=== PATIENT | male | born 1965 | race Caucasian/White ===

== ENCOUNTER 2020-01-22 10:21 | Inpatient (IN) | payer OTHER, SELFPAY ==
[2020-01-22 10:58] LABS: #Eosinphils 0.1 thou/uL (0.0-0.7); #Monocytes 1.4 thou/uL (0.11-0.59); #Neutrophils 8.4 thou/uL (1.40-6.50); %Basophils 0.4 % (0.0-1.0); %Eosinophils 0.6 % (0.0-10.0); %Lymphocytes 9.4 % (21.0-51.0); %Monocytes 12.9 % (0.0-10.0); %Neutrophils 76.7 % (42.0-75.0); Hemoglobin 15.2 g/dL (14.0-18.0); Mean Corpuscular HGB CONC 32.9 g/dL (32.0-36.0); Mean Corpuscular Hemoglobin 32.4 pg (27.0-31.0); Mean Corpuscular Volume 98.3 fL (78.0-98.0); Mean Platelet Volume 6.9 fL (7.4-10.4); Platelet Count 178 thou/uL (130-400)
--- NOTE | 2020-01-22 11:03 | RAD ---
EXAM: CHEST ONE VIEW HISTORY: Patient states flushed feeling and right upper quadrant abdominal pain for 3 days. Patient also compl ains of chest pain. COMPARISON: None FINDINGS: Cardiac silhouette is magnified by projection but does appear at the upper limits of normal to border line enlarged. Mild elevation right hemidiaphragm is present. The lungs are clear. Surgical clips overlie the lateral aspect right upper quadrant. Degenerative changes are seen in the spine. IMPRESSION: No acute cardiopulmonary process.
[2020-01-22 11:20] LABS: ALT (SGPT) 93 U/L (8-55); AST (SGOT) 359 U/L (5-34); Albumin 2.7 g/dL (3.5-5.0); Alkaline Phosphatase 302 U/L (40-110); Anion Gap 9 mmol/L (10-20); BUN (Urea Nitrogen) 12 mg/dL (8.4-25.7); Bilirubin, Total 13.1 mg/dL (0.2-1.2); CK (CPK) 228 U/L (30-200); Calc. Creatinine Clearance 0 mL/min (70-130); Calcium 8.7 mg/dL (7.8-10.44); Carbon Dioxide 29 mmol/L (22-29); Chloride 101 mmol/L (98-107); Estimated GFR-MDRD Greater than 90; Globulin 4.8 g/dL (2.4-3.5); Glucose 102 mg/dL (70-105); Lipase 61 U/L (8-78); Potassium 3.4 mmol/L (3.5-5.1); Protein, Total 7.5 g/dL (6.0-8.3); Sodium 136 mmol/L (136-145)
[2020-01-22 11:42] LABS: CKMB 4.5 ng/mL (0-6.6)
[2020-01-22] MEDS ORDERED: Ondansetron PF 4 MG/2 ML Vial IVP PRN (12:00)
[2020-01-22] MEDS ORDERED: Ondansetron ODT 4 MG TAB SL PRN (12:00)
--- NOTE | 2020-01-22 12:19 | CT ---
CT PULMONARY ANGIOGRAM WITH IV CONTRAST AND 3D POSTPROCESSING: Date: 01/22/2020 HISTORY: 54-year-old male with complaints of feeling flushed and right upper quadrant abdominal pain and chest pain. COMPARISON: None. FINDINGS: No filling defects are seen in the pulmonary arterial vasculature to suggest pulmonary embolism. No t horacic aortic aneurysm or dissection is seen. No pleural or pericardial effusions are identified. No pneumothoraces, lobar consolidation, or lung masses are identified. There are dependent changes vers us mild infiltrates at the lung bases. Upper abdominal tomograms demonstrate intrahepatic biliary ductal dilatation, probable peripherally c alcified pancreatic body mass and upper abdominal lymphadenopathy. There are degenerative changes in the spine. There is old wedge compression of T6 vertebral body. IMPRESSION: 1. No CT evidence of pulmonary embolism. 2. Abdominal findings should be evaluated with a dedicated CT scan of the abdomen and pelvis using t pancreatic mass protocol. POS: SARAHI
[2020-01-22] MEDS ORDERED: Morphine 4 MG/ML VIAL ONE (12:46)
[2020-01-22] MEDS ORDERED: Aspirin Chewable 81 MG TAB ONE (12:46)
[2020-01-22] MEDS ORDERED: Nitroglycerin 2% Ointment 1 INCH/1 GM Packet ONE (12:46)
[2020-01-22] MEDS ORDERED: Iopamidol-370 76% 500 ML 1 ML ONE (12:58)
[2020-01-22 14:23] LABS: Acetaminophen Less than 6.0 mcg/mL (10.0-30.0)
[2020-01-22 14:38] LABS: INR-International Normal Ratio 1.4; PTT 31.3 SEC (22.9-36.1); Prothrombin Time 16.9 SEC (12.0-14.7)
[2020-01-22 14:41] LABS: HBSAB Concentration 0.59 mIU/mL; Hep B Surf AB Non-Reactive (NonReactive); Hep B Surf Ag Non-Reactive S/CO (NonReactive)
[2020-01-22 14:43] LABS: Hep C IgG Ab Reflex HepC Qnt (NonReactive); Hep C Index 16.33 S/CO (0-0.79)
--- NOTE | 2020-01-22 15:22 | ULT ---
EXAM: US Gallbladder RUQ CLINICAL HISTORY: Previous liver surgery. Poor historian. Elevated liver function tests.. COMPARISON: None. FINDINGS: Pancreas: Obscured by bowel gas Liver:Normal hepatic parenchymal echotexture is not appreciated. There is increased echogenicity of t he liver which may be due to hepatic steatosis or hepatocellular disease. Right hepatic lobe appears to be 8.9 cm. Correlation made with a CT angiogram of the chest does raise the possibility of intrahepatic biliary dilatation, incompletely evaluated. Based on that examination, normal-appearing portal vein is not definitively seen. On the previous CT, the visualized splenic vei n appears to have areas of calcification and tortuosity. Gallbladder: Surgically absent. Barboza's sign:Not applicable. Portal Vein: Cannot be adequately assessed on this exam. Reference to the portal vein is made on a CT angiogram of chest performed earlier today. Bile ducts: For evaluation the common bile duct. Possible intrahepatic biliary dilatation. Right kidney: No hydronephrosis. Right kidney measures 9.9 cm in length. IMPRESSION: 1. Abnormal appearance of the liver which may in part be due to surgery. The patient is a poor histor chayito but states that there was a previous liver surgery. 2. Gallbladder appears to be absent. Based on images provided on recent CT, there does appear to be i ntrahepatic biliary dilatation. Common bile duct is poorly defined and cannot be assessed. 3. Based on images provided, the expected portal vein appears to be tortuous and dilated. There is al so similar tortuosity and dilatation of the splenic vein. The possibility of portal vein thrombosis cannot be excluded. 4. The constellation of findings limit evaluation. Better interrogation with an abdomen MRI is recomm ended. If the patient cannot tolerate an abdomen MRI, consider a liver mass protocol CT. CODE T Transcribed Date/Time: 01/22/2020 5:13 PM
[2020-01-22] MEDS ORDERED: Potassium Chloride 20 MEQ TAB PO SCH (17:00)
[2020-01-22] MEDS: traMADol HCl 50 MG TAB PO PRN (17:05)
[2020-01-22] MEDS ORDERED: Calcium Carbonate 500 MG ChewTAB PO PRN (17:33)
--- NOTE | 2020-01-22 17:54 | HP ---
PRIMARY CARE: [id number]. CHIEF COMPLAINT: Nausea, vomiting with diarrhea and abdominal discomfort of 3 days' duration. HISTORY OF PRESENT ILLNESS: The patient is a 54-year-old male with cirrhosis, presented to the emergency room with above complaints. Over the last 3 to 4 days, the patient has intractable nausea, vomiting, and diarrhea. He is unable to keep any food down. He states that he had several episodes of vomiting, which was nonbilious. He denies any hematemesis. The diarrhea was watery without any blood. He also had abdominal discomfort, mainly in the right upper quadrant, which was constant. He denies any aggravating or relieving factor. He also felt feverish and had intermittent chills. Earlier today, he also had some precordial chest discomfort that was 9/10, that was constant, short lasting, which has resolved at this time. He denies any radiation of the chest pain. No associated diaphoresis reported. In the emergency room, his initial vital signs showed temperature 98.2, respirations of 18, pulse rate of 64 with a blood pressure of 167/89, and O2 saturation 95% on room air. His EKG showed sinus rhythm with left ventricular hypertrophy. He received morphine along with aspirin and Nitro-Patch in the emergency room. PAST MEDICAL HISTORY: 1. Cirrhosis. 2. COPD. PAST SURGICAL HISTORY: 1. Cholecystectomy. 2. Liver biopsy. PAST PSYCHIATRIC HISTORY: Anxiety and PTSD. SOCIAL HISTORY: The patient currently lives at home. Ambulates with the help of cane. Denies current use of smoking, alcohol, or drug use. FAMILY HISTORY: Negative for heart disease. REVIEW OF SYSTEMS: All other review of systems was reviewed and was found negative. PHYSICAL EXAMINATION: VITAL SIGNS: As discussed above. GENERAL: A 54-year-old male, in no apparent distress, resting comfortably. HEENT: Head, atraumatic and normocephalic. Sclerae icteric. Moist mucous membranes. No oral lesion. NECK: Supple. No JVD appreciated. No carotid bruit. LUNGS: Clear to auscultation bilaterally. No wheezing, rales, or rhonchi. HEART: S1 and S2 present. Regular rate and rhythm. No murmurs, rubs, or gallops. ABDOMEN: Soft. Mild tenderness in the right upper quadrant. No rebound or guarding. No costovertebral angle tenderness. EXTREMITIES: Trace edema in bilateral lower extremity. No calf tenderness. SKIN: Warm and dry. LYMPH NODES: No palpable lymph nodes in the neck. Peripheral, vascular, radial pulses palpable bilaterally. MUSCULOSKELETAL: No joint swelling or tenderness. LABORATORY FINDINGS: CBC showed WBC 11.0 with hemoglobin 15.2, hematocrit 46.2, platelets 178. PT of 16.9, INR 1.4. D-dimer was 1.21. Chemistry showed sodium 136, potassium 3.4, chloride 101, bicarb 29, BUN 12, creatinine 0.70. Total bilirubin 13.1 with AST 359, ALT 93, alkaline phosphorus 302. Troponin of 0.051, repeat troponin was 0.026. Ammonia was 35. Magnesium 1.9. Acetaminophen level was less than 6. Hepatitis B surface antigen and antibody were nonreactive. Hepatitis C antibody was positive. CT angiogram of the chest by my review was negative for pulmonary embolism. He also had intrahepatic biliary ductal dilatation with calcified pancreatic body mass and upper abdominal lymphadenopathy. EKG by my review as discussed above. IMPRESSION: 1. Nausea, vomiting, diarrhea with abdominal discomfort. The patient has significantly abnormal LFTs. He was admitted at [facility] 3 months ago. 2. Chest discomfort, rule out acute coronary syndrome. 3. Hypokalemia. 4. Elevated troponins, suspected type 2 myocardial infarction. 5. Intermittent fever per the patient's report, rule out sepsis. 6. Suspected chronic hepatitis C. 7. Abnormal abdominal finding on the CT. PLAN: The patient will be monitored on the telemetry unit due to chest discomfort. Serial troponins will be obtained. We will keep him on clear liquid diet due to abdominal discomfort with nausea. Gastroenterology Team will be consulted. Gentle IV hydration. Hepatitis C RNA PCR has been sent. We will obtain records from [place] location. The patient understands the above plan of care. Job ID: [id number] [facility]
[2020-01-22] MEDS: cefTRIAXone\\ROCEPHIN 2 GM in Sodium Chloride 0.9% 100 ML IVPB SCH (18:30)
[2020-01-22 19:34] LABS: Medtox Reader # READER 4; Opiate Screen Detected (NotDetected)
[2020-01-22 19:35] LABS: Amphetamine Not Detected (NotDetected); Barbiturates Screen Not Detected (NotDetected); Benzodiazepine Screen Not Detected (NotDetected); Cocaine Metabolite Screen Not Detected (NotDetected); Medtox Control Line Valid? VALID (VALID); Methadone Not Detected (NotDetected); Methamphetamine Not Detected (NotDetected); Oxycodone Screen Not Detected (NotDetected); Phencyclidine (PCP) Not Detected (NotDetected); THC/Cannabinoid Screen Not Detected (NotDetected); Tricyclic Screen Not Detected (NotDetected)
[2020-01-22] MEDS: D5 0.9% NS w/ 20 mEq KCl 1,000 ML IV SCH (21:13)
[2020-01-22] MEDS: Famotidine/PF 20 mg/2ml Vial SLOW IVP SCH (21:13)
[2020-01-22] MEDS ORDERED: Morphine 2 MG/ML SYRINGE SLOW IVP SCH (23:59)
[2020-01-23] MEDS: traMADol HCl 50 MG TAB PO PRN (04:55)
[2020-01-23 04:59] LABS: Band 4 % (5-11); Eosinophils 1 % (0-10); Hemoglobin 15.2 g/dL (14.0-18.0); Lymphocytes 12 % (21-51); MDiff Complete? YES; Mean Corpuscular HGB CONC 34.2 g/dL (32.0-36.0); Mean Corpuscular Hemoglobin 34.5 pg (27.0-31.0); Mean Platelet Volume 7.2 fL (7.4-10.4); Monocytes 13 % (0-10); Neutrophil 70 % (42-75); Platelet Count 106 thou/uL (130-400); Platelet Morphology Comment Appears Decreased; RBC Distribution Width 14.1 % (11.5-14.5); Red Blood Cell (RBC) Count 4.41 mill/uL (4.70-6.10); White Blood Cell (WBC) Count 12.2 thou/uL (4.8-10.8)
[2020-01-23 05:23] LABS: ALT (SGPT) 98 U/L (8-55); AST (SGOT) 404 U/L (5-34); Albumin 1.9 g/dL (3.5-5.0); Alkaline Phosphatase 279 U/L (40-110); BUN (Urea Nitrogen) 7 mg/dL (8.4-25.7); Bilirubin, Direct 9.4 mg/dL (0.1-0.3); Bilirubin, Total 16.1 mg/dL (0.2-1.2); Calc. Creatinine Clearance 206 mL/min (70-130); Carbon Dioxide 17 mmol/L (22-29); Chloride 104 mmol/L (98-107); Estimated GFR-MDRD Greater than 90; Glucose 114 mg/dL (70-105); Potassium 4.8 mmol/L (3.5-5.1); Protein, Total 6.9 g/dL (6.0-8.3); Sodium 129 mmol/L (136-145)
[2020-01-23 05:24] LABS: Anion Gap 13 mmol/L (10-20)
[2020-01-23] MEDS ORDERED: Furosemide 20 MG TAB PO SCH (09:00)
[2020-01-23] MEDS ORDERED: Lisinopril 5 MG TAB PO SCH (09:00)
[2020-01-23] MEDS: D5 0.9% NS w/ 20 mEq KCl 1,000 ML IV SCH ×2 (10:14→21:32)
[2020-01-23] MEDS: Famotidine/PF 20 mg/2ml Vial SLOW IVP SCH ×2 (10:15→21:33)
[2020-01-23] MEDS ORDERED: Morphine 2 MG/ML SYRINGE SLOW IVP PRN (10:40)
[2020-01-23] MEDS ORDERED: Iopamidol 370 76% 100 ML VIAL ONE (12:49)
[2020-01-23] MEDS ORDERED: Morphine 2 MG/ML SYRINGE SLOW IVP SCH (14:30)
--- NOTE | 2020-01-23 14:57 | EKG ---
Test Reason : Blood Pressure : / mmHG Vent. Rate : 062 BPM Atrial Rate : 062 BPM P-R Int : 136 ms QRS Dur : 102 ms QT Int : 450 ms P-R-T Axes : 022 014 014 degrees QTc Int : 456 ms Normal sinus rhythm Minimal voltage criteria for LVH, may be normal variant Borderline ECG Confirmed by KONG DRAKE, JEREMI ([id number]), editor sound YVONNE ABDALLA ([id number]) on 01/23/2020 2:56:54 PM Referred By: Confirmed By:JEREMI TRIANA MD
--- NOTE | 2020-01-23 15:13 | CON ---
DATE OF CONSULTATION: 01/23/2020 REQUESTING PHYSICIAN: Dr. Kirby. REASON FOR CONSULTATION: Elevated LFTs and abdominal pain. HISTORY OF PRESENT ILLNESS: Seth De Santiago is a 54-year-old man, previously seen by my GI colleague, Dr. Pete. He has a history of known cirrhosis secondary to prior alcohol abuse as well as chronic hepatitis C, which is treatment naive. He reports having had an ERCP performed for gallstones back in 2005, finally underwent cholecystectomy in 2011. He has been known to have cirrhosis since at least 2010 with imaging at that time demonstrating nodular liver, also history of ascites and hepatic encephalopathy. He does not follow up with any GI or liver physician for the past several years. He does take lactulose and Lasix on an outpatient basis. He does not use drugs or alcohol or smoke at all at this point. He reports he had been doing quite well until about 4 days ago. At that time, he started having significant pain in the epigastrium and right upper quadrant along with nausea and repeated episodes of nonbloody emesis. This pain progressed and started to involve the chest yesterday, which prompted his presentation. Upon admission, he was found to have significant elevation in LFTs with total bilirubin up to 16.1 today, direct bilirubin 9.4, AST 404, ALT 98, alkaline phosphatase 279. He has a mild leukocytosis with WBC 12.2. Initial chest x-ray imaging showed no acute processes. A CT angiogram of the chest demonstrated no evidence of pulmonary embolus, but there was suggestion of intrahepatic biliary dilation as well as a probable pancreatic body mass with peripheral calcification and abdominal lymphadenopathy. Cross-sectional imaging of the abdomen was recommended. He had an abdominal ultrasound as well, but this was limited quality study showing only absent gallbladder and no good visualization of the portal vein or the common bile duct. Currently, he says the abdominal pain remains his primary complaint, it remains [id number] after morphine. He is afebrile and hemodynamically stable. REVIEW OF SYSTEMS: Full review of systems including constitutional; head, eyes, ears, nose, and throat; GI; ; cardiovascular; respiratory; musculoskeletal; neurologic systems is negative except as noted in the HPI. PAST MEDICAL HISTORY: 1. 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 2. Hepatitis C, treatment naive. 3. COPD. 4. Anxiety. 5. PTSD. 6. Cholecystectomy in 2011. 7. ERCP in 2005. SOCIAL HISTORY: No smoking, alcohol, or drug use currently. FAMILY HISTORY: Noncontributory. ALLERGIES: ACETAMINOPHEN. OUTPATIENT MEDICATIONS: 1. Lactulose 20 g b.i.d. 2. Lisinopril 5 mg daily. 3. Lasix 20 mg daily. 4. Milk thistle. PHYSICAL EXAMINATION: VITAL SIGNS: Temperature 97.5, pulse 71, blood pressure 163/73, and 97% oxygen saturation on room air. GENERAL: A 54-year-old man lying in bed, in mild distress from abdominal discomfort. MENTAL: He is alert and fully oriented. Pleasant, conversational. SKIN: He is jaundice. No rashes were palpable. EYES: He has scleral icterus. Extraocular movements are intact. ENT: Mucous membranes are moist. No oral lesions. LYMPH: No submandibular or supraclavicular lymphadenopathy. THYROID: Nontender to palpation. HEART: Regular rate and rhythm. LUNGS: Clear to auscultation bilaterally. ABDOMEN: Bowel sounds are present. The abdomen is nondistended. He is tender to palpation, even light palpation of the epigastrium in right upper quadrant, but no guarding or rebound tenderness. EXTREMITIES: No peripheral edema. VESSELS: Radial pulses 2+ bilaterally. NEURO: Cranial nerves 2 through 12 intact bilaterally. No focal deficits. LABORATORY DATA: Total bilirubin 16.1, direct bilirubin 9.4, alkaline phosphatase 279, AST 404, ALT 98, albumin 1.9. WBC 12.2, hemoglobin 15.2, platelets 106. INR 1.4. Sodium 129, potassium 4.8, BUN 7, creatinine 0.53. Ammonia only 35. Urine drug screen positive for opiates, otherwise negative. Blood culture shows no growth to date. Acetaminophen level is negative. BNP is 270. Troponin 0.02. Lipase normal at 61. Hepatitis B surface antigen negative. Hepatitis B surface antibody negative. Hepatitis C antibody is positive. IMAGING STUDIES: As detailed in the HPI. Notably, CTA of the chest demonstrates no evidence of PE, but suggest intrahepatic biliary dilation and a probable pancreatic body mass with peripheral calcification as well as abdominal lymphadenopathy, with further abdominal imaging recommended. ASSESSMENT AND PLAN: 1. Jaundice, with significant LFT elevation. Note, total bilirubin is up to 16.1, was only 2.9 during prior admission at the outside hospital 6 months ago. This is likely a combination of decompensated cirrhosis plus a biliary obstruction, but I do have more concern for new biliary obstructive process at this point, particularly given the CT findings suggesting intrahepatic biliary dilation as well as possible pancreatic body mass. 2. Biliary dilation. 3. Possible pancreatic mass. We are going to need dedicated cross-sectional imaging of the abdomen and pelvis. I am not sure he would tolerate MRI due to his current pain level. We will request CT imaging with liver and pancreatic protocol. If the patient does indeed have a pancreatic mass causing biliary obstruction, I think he would probably be best served at a tertiary center for endoscopic ultrasound along with ERCP. 4. Cirrhosis, secondary to hepatitis C and prior alcohol abuse. The patient has not followed up with any small products ii assembler. To his knowledge, he has not really had any ongoing liver surveillance. 5. History of hepatic encephalopathy. He had an admission with encephalopathy elsewhere in July 2019, but evidently has done well with this recently on lactulose. 6. We will follow up results of CT, and go from there. Thank you for the consultation. Please call anytime with questions or concerns. Job ID: [id number]
--- NOTE | 2020-01-23 17:03 | CT ---
Exam: Abdomen CT with and without contrast Pelvic CT with contrast HISTORY: Possible portal vein thrombosis. Biliary dilatation. Abnormal LFTs. Evaluate for liver mass versus pancreatic mass. COMPARISON: None Correlation: CT angiogram of the chest 01/22/2020, gallbladder ultrasound 01/22/2020 FINDINGS: Abdomen CT: Chronic changes in the lung bases. Heart is enlarged. No significant pericardial fluid The visualized aorta has a normal caliber. No periaortic fat stranding. Normal-appearing portal vein is not appreciated. There appears to be surgical change with resection o f the portal vein. The superior mesenteric vein appears to directly anastomose with the splenic vein which appears to be dilated. Gallbladder is surgically absent. There is marked dilatation of the intrahepatic biliary system as we ll as the common bile duct. There is abnormal attenuation within the lumen of the distal common bile duct, measuring 1.4 x 1.2 cm. Abnormal attenuation occupies the majority of the lumen of the com mon bile duct. Proximal to this abnormal attenuation, there is significant dilatation of the common bile duct extending into the intrahepatic biliary system. An obstructing mass lesion is suspected. Th ere are no enhancing masses within the liver. No enhancement or abnormal masses with regards to the pancreas. Note, the pancreatic duct is upper normal in caliber, measuring 0.25 cm. An underlying panc reatic mass cannot be entirely excluded but is less favored at this time. There are enlarged gastrohepatic varices. Enlarged lymph nodes in the portal confluence. 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 Additional enlarged lymph node is noted posterior to the dilated common bile duct (axial image #57, series 3 and coronal image 73, series 601). Enlarged lymph node posterior to the head of the smith creas measuring 8.3 x 1.1 cm. Symmetric enhancement of the kidneys. Bilaterally no obstructive uropathy. Subcentimeter hypodensity in the left and right renal cortex, compatible with cortical cysts. Umbilical hernia containing mesenteric fat No mesenteric mass, lymphadenopathy, free air or significant free fluid Limited evaluation of the alimentary canal by incomplete oral contrast opacification. No evidence of a bowel obstruction. Normal caliber appendix. Fecal material in a nondistended, nondilated colon. 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: Mildly prominent urinary bladder mucosa, nonspecific. No pelvic mass, lymphadenopathy or f ree air. There is free fluid in the pelvis was attenuation coefficient of 17 Hounsfield units. There are no lytic or blastic lesions in the osseous structures. IMPRESSION: 1. Surgically absent gallbladder. 2. Marked dilatation of the intra and extra hepatic biliary system, greater than expected for reservo ir effect due to cholecystectomy. There appears to be an abnormal soft tissue density in the distal common bile duct, incompletely evaluated. ERCP may be beneficial. Consider GI consultation. 3. Upper normal caliber of the pancreatic duct without evidence of associated uncinate process or smith creatic head mass. 4. Enlarged lymph nodes adjacent to the common bile duct and in the portal confluence. 5. Postsurgical changes with resultant prominent splenic varices. Transcribed Date/Time: 01/23/2020 5:13 PM
[2020-01-23] MEDS: cefTRIAXone\\ROCEPHIN 2 GM in Sodium Chloride 0.9% 100 ML IVPB SCH (17:19)
[2020-01-23] MEDS: Morphine 2 MG/ML SYRINGE SLOW IVP PRN ×2 (19:15→23:20)
[2020-01-24] MEDS: Morphine 2 MG/ML SYRINGE SLOW IVP PRN ×3 (04:39→12:24)
[2020-01-24] MEDS: D5 0.9% NS w/ 20 mEq KCl 1,000 ML IV SCH ×2 (04:40→08:37)
[2020-01-24 04:44] LABS: ALT (SGPT) 88 U/L (8-55); AST (SGOT) 267 U/L (5-34); Albumin 2.1 g/dL (3.5-5.0); Alkaline Phosphatase 253 U/L (40-110); Anion Gap 10 mmol/L (10-20); BUN (Urea Nitrogen) 6 mg/dL (8.4-25.7); Bilirubin, Total 20.9 mg/dL (0.2-1.2); Calc. Creatinine Clearance 206 mL/min (70-130); Calcium 8.1 mg/dL (7.8-10.44); Carbon Dioxide 22 mmol/L (22-29); Chloride 105 mmol/L (98-107); Estimated GFR-MDRD Greater than 90; Glucose 72 mg/dL (70-105); Potassium 4.1 mmol/L (3.5-5.1); Protein, Total 6.7 g/dL (6.0-8.3); Sodium 133 mmol/L (136-145)
[2020-01-24 05:06] LABS: Band 7 % (5-11); Eosinophils 1 % (0-10); Lymphocytes 5 % (21-51); MDiff Complete? YES; Mean Corpuscular Hemoglobin 33.6 pg (27.0-31.0); Mean Platelet Volume 7.3 fL (7.4-10.4); Monocytes 13 % (0-10); Neutrophil 73 % (42-75); Platelet Count 122 thou/uL (130-400); RBC Distribution Width 14.1 % (11.5-14.5); Red Blood Cell (RBC) Count 4.48 mill/uL (4.70-6.10); White Blood Cell (WBC) Count 9.5 thou/uL (4.8-10.8)
[2020-01-24 05:50] LABS: Bilirubin, Direct 13.8 mg/dL (0.1-0.3)
--- NOTE | 2020-01-24 07:16 | PDOC.HOSPP ---
- Subjective Encounter Date: 01/23/20 Encounter Time: 09:30 Subjective: Patient seen and examined for Abn LFTs. No new CP. RUQ pain worse. Still nauseas. No diarrhea. No other complaints. No overnight events - Objective Vital Signs & Weight: Vital Signs (12 hours) Temp Pulse Resp BP BP Pulse Ox 01/24/20 05:07 98 01/24/20 03:33 98 F 82 18 143/65 H 98 01/23/20 19:49 98.0 F 80 14 151/72 H 94 L Weight Admit Weight 204 lb 3 oz Weight 7.446 oz I&O: 01/23/20 01/24/20 01/25/20 06:59 06:59 06:59 Intake Total 687 2286 Output Total 350 1350 Balance 337 936 Result Diagrams: 01/24/20 03:58 01/24/20 03:58 Additional Labs: Laboratory Tests 01/23/20 04:35 Total Bilirubin 16.1 H Direct Bilirubin 9.4 H AST 404 H ALT 98 H Alkaline Phosphatase 279 H EKG Reviewed by me: Yes (Tele SR) Hospitalist ROS - Review of Systems Respiratory: denies: cough, dry, shortness of breath, hemoptysis, SOB with excertion, pleuritic pain, sputum, wheezing, other Cardiovascular: denies: chest pain, palpitations, orthopnea, paroxysmal noc. dyspnea, edema, light headedness, other - Medication Medications: Active Medications Generic Name Dose Route Start Last Admin Trade Name Freq PRN Reason Stop Dose Admin Famotidine 20 mg 01/22/20 21:00 01/23/20 21:33 Pepcid SLOW IVP 20 mg Q12HR WILL Administration Potassium Chloride/Dextrose/Sod Cl 1,000 mls @ 75 mls/hr 01/22/20 18:00 01/23 04:40 D5 0.9% Ns W/ 20 Meq Kcl IV 1,000 mls .[id number] WILL Administration Morphine Sulfate 2 mg 01/23/20 14:25 01/24/20 04:39 Morphine SLOW IVP 01/25/20 07:00 2 mg Q4H PRN Administration Severe Pain (7-10) Tramadol HCl 50 mg 01/22/20 16:31 01/23/20 04:55 Ultram PO 50 mg Q12H PRN Administration Moderate to Severe Pain (6-10) - Exam General Appearance: NAD Heart: RRR, no gallops, no rubs, normal peripheral pulses Respiratory: CTAB, no wheezes, no rales, no ronchi Gastrointestinal: normal bowel sounds, no guarding, no rigidity Gastrointestinal - other findings: RUQ tend - no guarding Extremities: no cyanosis, no clubbing Skin: normal turgor, no lesions Neurological: no new deficit Hosp A/P - Plan DVT proph w/SCDs 1. Obstructive jaundice 2. Atypical CP - ACS ruled out 3. Hypokalemia. 4. Elevated troponins, suspected type 2 myocardial infarction. 5. Intermittent fever per the patient's report, rule out sepsis. 6. Suspected chronic hepatitis C. 7. Abnormal abdominal finding on the CT. PLAN: Await GI input NPO Cont IVF Cont Empiric Atbx Hepatitis C RNA PCR pending Pain control
[2020-01-24] MEDS ORDERED: Piperacillin/Tazobactam 3.375 GM in Sodium Chloride 0.9% 100 ML IVPB SCH (08:00)
[2020-01-24] MEDS: Famotidine/PF 20 mg/2ml Vial SLOW IVP SCH (08:35)
[2020-01-24 11:52] VITALS: BMI 28.5
--- NOTE | 2020-01-24 12:01 | DIS ---
DATE OF ADMISSION: 01/22/2020 DATE OF DISCHARGE: 01/24/2020 DISCHARGE DISPOSITION: To [facility] for higher level of care. The patient was seen and examined on the day of discharge. Denies any new complaints. No fever or chills reported. Abdominal pain controlled with IV morphine. He still has some nausea, however, denies any vomiting. Vital signs on the day of discharge showed temperature 97.9, pulse rate of 79, respirations 16, blood pressure 167/80, O2 saturation 98% on room air. DIAGNOSTIC TESTS: 1. CT angiogram of the chest in the emergency room was negative for pulmonary embolism. It showed intrahepatic biliary ductal dilatation. 2. Chest x-ray on admission was negative for infiltrate. 3. Right upper quadrant ultrasound showed dilatation of the splenic and the portal vein. The common bile duct was poorly defined on this imaging. 4. CT scan of the abdomen and pelvis showed marked dilatation of the intra and extrahepatic biliary system. There were also enlarged lymph nodes adjacent to the common bile duct with prominent splenic varices. BRIEF HOSPITAL COURSE: The patient is a 54-year-old male with cirrhosis, presented to the hospital with nausea, vomiting, abdominal discomfort along with diarrhea. He also had some atypical chest pain. He felt feverish, however, did not check his temperature. He had intermittent chills as well. Please refer to the history and physical for further details. The patient was admitted to the hospital with a diagnosis of chest discomfort along with nausea, abdominal discomfort, and significantly abnormal LFTs. His bilirubin on admission was 13.1 with AST of 359, ALT of 93, alkaline phosphatase of 302. He underwent imaging as discussed above. The GI Service recommended transfer to higher level of care for possible ERCP with endoscopic ultrasound. He was empirically placed on antibiotics. FINAL DIAGNOSES: 1. Obstructive jaundice. 2. Atypical chest pain, acute coronary syndrome ruled out. 3. Elevated troponin secondary to type 2 myocardial infarction. 4. Hypokalemia, replaced. 5. Suspected chronic hepatitis C. Hepatitis C RNA is pending at this time. 6. Abnormal abdominal CT imaging. 7. History of hepatic encephalopathy with hospitalization in July 2019. 8. Suspected pancreatic mass. 9. Anxiety. 10. Posttraumatic stress disorder. 11. Chronic obstructive pulmonary disease. TIME SPENT: Time coordinating the discharge of this patient was 37 minutes. Job ID: [id number]
[2020-01-24 12:50] VITALS: BP 139/66; TEMP 97.4
[2020-01-25 10:12] LABS: HCV log10 6.117 (.); Hep C PCR-Quant 1310000 IU/mL (.)
--- NOTE | 2020-01-27 22:09 | PQF ---
Seth De Santiago MALIK MD [id number] CLINICAL DOCUMENTATION CLARIFICATION FORM: POST DISCHARGE Addendum to original discharge summary date: ____ Late entry note date: __ DATE: 01/27/2020 ATTN:NIGEL KIRBY MD Please exercise your independent, professional judgment in responding to the clarification form. Clinical indicators are provided on the bottom of this form for your review Please check appropriate box(s) to clarify if the following diagnosis has been ruled in or ruled out: Sepsis [ ] Ruled in diagnosis [ ] Continue to treat [ ] Resolved [ x ] Ruled out diagnosis [ ] Cannot rule out diagnosis [ ] Other diagnosis [ ] Unable to determine For continuity of documentation, please document condition throughout progress notes and discharge summary. Thank You. CLINICAL INDICATORS - SIGNS / SYMPTOMS / LABS - Intermittent fever per the patient's report, rule out sepsis- -H&P, 01/21, Nigel Kirby MD - Temp: 98.2, RR:18, Pulse: 64-H&P, 01/21, Nigel Kirby MD - WBC: 11.0H on 01/21, 12.12H on 01/22, 9.5 on 01/23- Laboratory report, - He is afebrile and hemodynamically stable RISK FACTORS -Chronic hepatitis C- DS, 01/23, Nigel Kirby MD -Obstructive jaundice-DS, 01/23, Nigel Kirby MD TREATMENTS - Rocephin.IV- DEC, 01/21 - Zosyn.IV- DEC, 01/23 (This form is maintained as a part of the permanent medical record) 2014 [employer] All Rights Reserved [email or web address]
== END 2020-01-24 12:30 | disposition short-term general hospital (02) | DRG 280 ==
LOC: ERS 10:21 → 2NO 13:03
PROVIDERS: ADMIT Internal Medicine; ATTEND Internal Medicine
DX: R07.89 Other chest pain (principal); K83.1 Obstruction of bile duct; I21.A1 Myocardial infarction type 2; E87.6 Hypokalemia; K74.60 Unspecified cirrhosis of liver; B18.2 Chronic viral hepatitis C; F41.9 Anxiety disorder, unspecified; F43.10 Post-traumatic stress disorder, unspecified; J44.9 Chronic obstructive pulmonary disease, unspecified; F10.10 Alcohol abuse, uncomplicated; Z90.49 Acquired absence of other specified parts of digestive tract
CPT/HCPCS: 36415; 71045; 71275; 74178; 76705; 80048; 80053; 80076; 80306; 80307; 82140; 82550; 82553; 83690; 83735; 83880; 84484; 85007; 85025; 85027; 85379; 85610; 85730; 86706; 86803; 87040; 87340; 87522; 93005; 96374; J0696; J2270; J2543; J3480; J3490; Q9967; S0028

== ENCOUNTER 2020-07-19 16:19 | Inpatient (IN) | payer OTHER, SELFPAY ==
[2020-07-19 17:01] LABS: #Basophils 0.1 thou/uL (0.0-0.2); #Eosinphils 0.1 thou/uL (0.0-0.7); #Lymphocytes 0.5 thou/uL (1.20-3.40); #Neutrophils 5.4 thou/uL (1.40-6.50); %Basophils 0.9 % (0.0-1.0); %Eosinophils 0.8 % (0.0-10.0); %Lymphocytes 7.6 % (21.0-51.0); %Monocytes 13.8 % (0.0-10.0); Mean Corpuscular HGB CONC 32.8 g/dL (32.0-36.0); Mean Corpuscular Hemoglobin 31.9 pg (27.0-31.0); Mean Corpuscular Volume 97.4 fL (78.0-98.0); Mean Platelet Volume 6.9 fL (7.4-10.4); Platelet Count 189 thou/uL (130-400); RBC Distribution Width 13.7 % (11.5-14.5); Red Blood Cell (RBC) Count 3.46 mill/uL (4.70-6.10)
--- NOTE | 2020-07-19 17:07 | RAD ---
PORTABLE CHEST: History: Chest pain Comparison: 01-22-2020 FINDINGS: Lung gonzalez are clear. No infiltrate or vascular congestion. Heart size normal. IMPRESSION: No acute process. POS: AGW
[2020-07-19 17:24] LABS: ALT (SGPT) 38 U/L (8-55); AST (SGOT) 94 U/L (5-34); Albumin 2.4 g/dL (3.5-5.0); Alkaline Phosphatase 150 U/L (40-110); Anion Gap 11 mmol/L (10-20); BUN (Urea Nitrogen) 8 mg/dL (8.4-25.7); Bilirubin, Total 3.8 mg/dL (0.2-1.2); Calc. Creatinine Clearance 0 mL/min (70-130); Carbon Dioxide 22 mmol/L (22-29); Chloride 103 mmol/L (98-107); Estimated GFR-MDRD Greater than 90; Globulin 4.7 g/dL (2.4-3.5); Glucose 102 mg/dL (70-105); Potassium 3.7 mmol/L (3.5-5.1); Protein, Total 7.1 g/dL (6.0-8.3); Sodium 132 mmol/L (136-145)
[2020-07-19] MEDS ORDERED: Cefepime 2 GM VIAL ONE (18:17)
[2020-07-19] MEDS ORDERED: Vancomycin 1.5 GRAM/300 ML BAG 1.5 GM in Premix Bag 1 BAG IVPB SCH (18:30)
--- NOTE | 2020-07-19 18:37 | CT ---
CT CERVICAL SPINE PERFORMED WITHOUT CONTRAST ENHANCEMENT: History: Fall with neck pain. FINDINGS: The vertebral bodies are normal in height. Degenerative changes are seen along the course of the spin e. There is some mild disc narrowing at C3-4 with more pronounced disc narrowing at C6-7. The facets appear to be in normal alignment. There is some mild left sided foraminal narrowing at C3-4. No centr al canal stenosis and no CT evidence of fracture. The lung apices are clear. IMPRESSION: No CT evidence of fracture of the cervical spine. POS: NITIN
--- NOTE | 2020-07-19 18:39 | CT ---
CT BRAIN PERFORMED WITH AND WITHOUT CONTRAST ENHANCEMENT: History: Fall with head injury. FINDINGS: There is generalized ventricular and sulcal prominence. The degree of ventricular dilatation is disco rdant to the amount of sulcal prominence, raising the possibility of normal pressure hydrocephalus. C hronic white matter changes are seen. No hemorrhage or mass effect. Mastoid air cells and visualized sinuses are clear. IMPRESSION: 1. No acute intracranial abnormalities. 2. Possibility of normal pressure hydrocephalus. POS: NITIN
[2020-07-19 18:43] LABS: Bacteria/HPF 4+ HPF (None Seen); Bilirubin Negative (Negative); Blood, Urine Negative (Negative); Clarity Turbid (Clear); Glucose, Urine (Dipstick) Normal (Negative); Ketone, Urine Negative (Negative); Leukocyte 250 Leu/uL (Negative); Mucous/LPF 1+ LPF (<2+); Nitrite Negative (Negative); Protein, Urine (Dipstick) 20 mg/dL (Neg-Trace); RBC/HPF 0-3 HPF (0-3); Specific Gravity, Urine 1.014 (1.002-1.036); Squamous Epithelial 0-3 HPF (0-3); WBC/HPF 21-50 HPF (0-3); pH, Urine 6.5 (5.0-9.0)
[2020-07-19] MEDS ORDERED: Electrolyte Replacement Protoc 1 EACH EACH FS SCH (22:00)
--- NOTE | 2020-07-19 22:50 | HP ---
PRIMARY CARE PHYSICIAN: [facility]. CHIEF COMPLAINT: Syncope. HISTORY OF PRESENT ILLNESS: The patient is a 55-year-old male, with past medical history significant for cirrhosis, hepatitis C, COPD, hypertension, and multiple head injuries, who presents to the ER today for syncope after falling off the toilet. Patient states that he became dizzy and went to sit down on the toilet, where he then fell off. He hit his head and he laid there for approximately 2 hours. He does state that he fell due to being dizzy and then he passed out, but that was after he fell. Patient also endorses that he has been falling a lot at home which is associated with syncopal episodes versus mechanical falls. He has not been seen for this by a provider, he states, but will lay on the floor until he feels stronger and then get up. He does state that he has had frequent headaches to the backside of his head, but he states that these began after his falls started and it is located where he has hit his head. Patient denies any chest pain, shortness of breath, contact with sick person, or change in bowel or bladder habits. He does state that he has been on antibiotics for UTI for one week. He is unsure of the name of it. He still endorses painful urination and frequent urination, although he states it is getting better. He does state that he drinks plenty of water at home and he is compliant with his medications. He claims that he has a heart valve issue, he is not sure what it is and that it has been numerous years since he has had an echo. Today in the ER, they completed a cervical spine CT, a brain CT, a chest x-ray, an EKG, lab work, and a urinalysis. He was administered vancomycin 1.5 g IV, cefepime 2 g IV, and 1 L of normal saline. PAST MEDICAL HISTORY: Cirrhosis, hepatitis C, COPD, "a bad valve," hypertension, multiple head injuries, PTSD, and anxiety. PAST SURGICAL HISTORY: Gallbladder removal and liver surgery. ALLERGIES: TYLENOL, STATES IT MAKES HIM DEATHLY ILL AND TRAMADOL, WHICH CAUSES HALLUCINATIONS. MEDICATIONS: As reconciled by the ER. 1. Fluoxetine 10 mg once a day. 2. Furosemide 20 mg once a day. 3. Lisinopril 5 mg once a day. 4. Lactulose 20 g. SOCIAL HISTORY: Patient lives at home with his mother. He denies drinking, smoking, or illicit drugs. FAMILY HISTORY: Positive for strokes. REVIEW OF SYSTEMS: All other review of systems are negative unless noted in the HPI. PHYSICAL EXAMINATION: VITAL SIGNS: Blood pressure 142/71, pulse 81, respiratory rate 24, temperature 99.0, and O2 saturation 98% on room air. GENERAL: Patient is in no acute distress. Awake and alert. HEENT: PERRLA. Extraocular muscles intact. No lymphadenopathy. RESPIRATORY: Clear to auscultation bilaterally. No rhonchi, no wheezes, and no rales. CARDIOVASCULAR: Regular rate and rhythm. No murmurs, no rubs, and no gallops. ABDOMEN: Soft, nontender, and nondistended. No guarding. No rigidity. EXTREMITIES: No edema. No cyanosis. Peripheral pulses intact. NEUROLOGIC: Alert and oriented x3. No focal deficits. No nystagmus. SKIN: Clean, dry, and intact. LABORATORY DATA: White blood cell 7.0, hemoglobin 11.0, and hematocrit 33.7. Sodium 132, potassium 3.7, BUN 8, creatinine 0.72, GFR greater than 90, glucose 102, lactic acid 2.0, total bilirubin 3.8, AST 94, ALT 38, and alkaline phosphatase 150. Initial troponin unremarkable. Urine showed turbid, urobilinogen 4, leukocyte esterase 250. Urine white blood cells 21 to 50, squamous epithelial cells 0 to 3, urine bacteria 4+. EKG showed sinus rhythm, 89 beats per minute. IMAGING: Cervical spine CT showed no CT evidence of fracture of the cervical spine. Brain CT showed no acute intracranial abnormalities, chronic white matter changes are seen. No hemorrhage or mass effect. Possibility of normal-pressure hydrocephalus. Chest x-ray showed no acute process. IMPRESSION AND PLAN: 1. Sepsis related to urinary tract infection. We will continue patient on IV antibiotics. Urine has been sent for culture. We will monitor patient's vital signs, administer p.r.n. antifebrile medication if needed, unable to give Tylenol as the patient is allergic to it and unable to have it due to his liver status. 2. Syncope. We will have an echo ordered in the morning. Orthostatic vitals have been ordered for him to be completed once to the unit. Walking program has also been consulted. He is not to get up without nursing assistance and patient states his understanding of this. We will continue to trend his troponins. He will be monitored on telemetry. 3. Anemia. The patient appears to be at his baseline. We will continue to follow labs in the morning to make sure his hemoglobin and hematocrit did not drop further. 4. Hyponatremia. Patient will be started on IVF. We will continue to monitor labs in the morning to see if this is improved. 5. Hypertension. Can restart home medications slowly to ensure they are not what may be causing his syncopal episodes. 6. Patient will have deep venous thrombosis prophylaxis with SCDs, gastrointestinal prophylaxis with Pepcid. 7. Patient wishes to be a full code. His surrogate decision maker is his mother, Lisbeth Frias. Patient has been discussed with Dr. Frances. Job ID: [id number] [facility]
[2020-07-19] MEDS: Morphine 2 MG/ML VIAL SLOW IVP PRN (23:03)
[2020-07-19] MEDS: Ibuprofen 600 MG TAB PO PRN (23:03)
[2020-07-19] MEDS: Sodium Chloride 0.9% 1,000 ML IV SCH (23:17)
[2020-07-19 23:35] LABS: Troponin I 0.014 ng/mL (< 0.028)
[2020-07-20 02:06] LABS: Troponin I 0.016 ng/mL (< 0.028)
[2020-07-20 02:35] VITALS: BMI 29.6
[2020-07-20] MEDS: Morphine 2 MG/ML VIAL SLOW IVP PRN ×5 (02:55→23:58)
[2020-07-20 04:25] LABS: Band 3 % (5-11); Hemoglobin 9.1 g/dL (14.0-18.0); Lymphocytes 10 % (21-51); MDiff Complete? YES; Mean Corpuscular HGB CONC 31.9 g/dL (32.0-36.0); Mean Corpuscular Hemoglobin 31.1 pg (27.0-31.0); Mean Corpuscular Volume 97.7 fL (78.0-98.0); Mean Platelet Volume 7.5 fL (7.4-10.4); Monocytes 20 % (0-10); Neutrophil 64 % (42-75); Platelet Count 140 thou/uL (130-400); Platelet Morphology Comment Appears Adequate; RBC Distribution Width 13.8 % (11.5-14.5); Reactive Lymphocytes 3 % (0-10); Red Blood Cell (RBC) Count 2.93 mill/uL (4.70-6.10)
[2020-07-20 04:39] LABS: Anion Gap 9 mmol/L (10-20); BUN (Urea Nitrogen) 8 mg/dL (8.4-25.7); Calc. Creatinine Clearance 163 mL/min (70-130); Calcium 7.3 mg/dL (7.8-10.44); Carbon Dioxide 20 mmol/L (22-29); Chloride 106 mmol/L (98-107); Estimated GFR-MDRD Greater than 90; Glucose 112 mg/dL (70-105); Potassium 3.4 mmol/L (3.5-5.1); Sodium 132 mmol/L (136-145)
[2020-07-20] MEDS: Cefepime 2 GM in Sodium Chloride 0.9% 100 ML IVPB SCH ×2 (06:13→17:52)
[2020-07-20] MEDS ORDERED: Magnesium 2 GM/50 ML 2 GM in Premix Bag 1 BAG IVPB SCH (06:45)
[2020-07-20] MEDS ORDERED: Potassium Chloride 20 MEQ TAB PO SCH (07:00)
[2020-07-20] MEDS: Famotidine 20 MG TAB PO SCH ×2 (08:19→20:15)
[2020-07-20] MEDS: Vancomycin 1 GM in Premix Bag 1 BAG IVPB SCH ×2 (08:19→20:15)
--- NOTE | 2020-07-20 13:54 | PDOC.HOSPP ---
- Subjective Encounter Date: 07/20/20 Encounter Time: 13:50 Subjective: f/u for sepsis due to UTI with Klebsiella/E. coli spp on Cefepime/Vancomycin. - Objective Vital Signs & Weight: Vital Signs (12 hours) Temp Pulse Resp BP Pulse Ox 07/20/20 12:05 98.1 F 72 14 116/60 97 07/20/20 08:12 97.8 F 63 15 125/65 97 07/20/20 05:57 97.5 F L 64 115/60 98 Weight Weight 206 lb 4.8 oz I&O: 07/19/20 07/20/20 07/21/20 06:59 06:59 06:59 Intake Total 1067 Balance 1067 Result Diagrams: 07/20/20 03:41 07/20/20 03:41 Additional Labs: Microbiology 07/19/20 18:20 Urine voided Urine Culture - Preliminary Presumptive Kleb/Enterobacter 07/19/20 16:47 Venous blood - Right Arm Blood Culture - Preliminary Escherichia coli 07/19/20 16:47 Venous blood - Left Hand Blood Culture - Preliminary Specimen has been received and culture in progress. No Growth to date. Laboratory Tests 07/19/20 07/19/20 07/20/20 16:41 16:41 03:41 WBC 7.0 Hgb 11.0 L Neutrophils % 77.0 H Neutrophils % (Manual) 64 Sodium 132 L Total Bilirubin 3.8 H AST 94 H ALT 38 Alkaline Phosphatase 150 H Radiology Reviewed by me: Yes (Echo - EF 60-65%) EKG Reviewed by me: Yes (Tele - ) Hospitalist ROS - Medication Medications: Active Medications Generic Name Dose Route Start Last Admin Trade Name Freq PRN Reason Stop Dose Admin Famotidine 20 mg 07/20/20 09:00 07/20/20 08:19 Famotidine 20 Mg Tab PO 20 mg BID WILL Administration Cefepime HCl 2 gm/ Sodium 100 mls @ 200 mls/hr 07/20/20 06:00 07/20/20 06:13 Chloride IVPB 100 mls 0600,1800 WILL Administration Vancomycin HCl 1 gm/ Device 200 mls @ 200 mls/hr 07/20/20 08:00 07/20/20 08:1 9 IVPB 200 mls 0800,2000 WILL Administration Sodium Chloride 1,000 mls @ 50 mls/hr 07/19/20 22:00 07/19/20 23:17 Normal Saline 0.9% IV 1,000 mls .Q20H WILL Administration Ibuprofen 600 mg 07/19/20 22:51 07/19/20 23:03 Ibuprofen 600 Mg Tab PO 600 mg Q6H PRN Administration Fever/Mild Pain Morphine Sulfate 2 mg 07/19/20 22:55 07/20/20 08:20 Morphine 2 Mg/Ml Vial SLOW IVP 2 mg Q4H PRN Administration Pain Sodium Chloride 10 ml 07/20/20 09:00 07/20/20 08:21 Flush - Normal Saline 10 Ml Syringe IVF 10 ml Q12HR WILL Administration - Exam General Appearance: NAD, awake alert Eye: PERRL, anicteric sclera ENT: normocephalic atraumatic, no oropharyngeal lesions Neck: supple, symmetric, no JVD, no thyromegaly Heart: RRR, no gallops, no rubs, normal peripheral pulses Heart - other findings: S1, S2 Respiratory: CTAB, no wheezes, no rales, no ronchi, normal chest expansion Gastrointestinal: soft, non-tender, no palpable masses, no guarding, no rigidity Gastrointestinal - other findings: mild distention Extremities: no cyanosis, no clubbing, no edema Skin: normal turgor Neurological: cranial nerve grossly intact, no new deficit Musculoskeletal: normal tone, generalized weakness Psychiatric: normal affect, A&O x 3 Hosp A/P (1) Sepsis due to gram-negative UTI Code(s): A41.50 - GRAM-NEGATIVE SEPSIS, UNSPECIFIED; N39.0 - URINARY TRACT INFECTION, SITE NOT SPECIFIED Status: Acute Plan: Continue Cefepime/Vancomycin, IVF's, await for final sensitivities (2) Syncope Code(s): R55 - SYNCOPE AND COLLAPSE Status: Acute Plan: Secondary to #1, PT for mobilization (3) Hypokalemia Code(s): E87.6 - HYPOKALEMIA Status: Acute Plan: KCL 40meq po BID, serial K+ monitoring (4) Hepatic cirrhosis Code(s): K74.60 - UNSPECIFIED CIRRHOSIS OF LIVER Status: Chronic Plan: Secondary to Hep C, resume Lactulose - Plan continue antibiotics, PT/OT, out of bed/ambulate, DVT proph w/SCDs Stable overall Continue Cefepime/Vancomycin Await for final Ucx/Blood cx sensitivities Resume Lactulose KCL 40meq po BID OOB with PT AM lab: CMP, CBC
[2020-07-20] MEDS ORDERED: FLUoxetine HCl 10 MG CAP PO SCH ×2 (14:15)
[2020-07-20] MEDS: Potassium Chloride 20 MEQ TAB PO SCH (17:53)
[2020-07-20] MEDS: Ibuprofen 600 MG TAB PO PRN (20:15)
[2020-07-20] MEDS ORDERED: FLU VACC QS2020-21(6MOS UP)/PF 60 MCG/0.5 ML SYRINGE IM ONE (21:00)
[2020-07-20] MEDS ORDERED: LACTULOSE 20 GM PO SCH (21:00)
[2020-07-20] MEDS: Sodium Chloride 0.9% 1,000 ML IV SCH (23:59)
[2020-07-21 05:06] LABS: ALT (SGPT) 29 U/L (8-55); AST (SGOT) 67 U/L (5-34); Albumin 1.8 g/dL (3.5-5.0); Alkaline Phosphatase 115 U/L (40-110); Anion Gap 7 mmol/L (10-20); BUN (Urea Nitrogen) 9 mg/dL (8.4-25.7); Calc. Creatinine Clearance 185 mL/min (70-130); Carbon Dioxide 21 mmol/L (22-29); Chloride 106 mmol/L (98-107); Estimated GFR-MDRD Greater than 90; Globulin 3.6 g/dL (2.4-3.5); Glucose 91 mg/dL (70-105); Protein, Total 5.4 g/dL (6.0-8.3); Sodium 130 mmol/L (136-145)
[2020-07-21 05:18] LABS: Band 3 % (5-11); Eosinophils 1 % (0-10); Hemoglobin 9.4 g/dL (14.0-18.0); Hypochromia SLIGHT = 6-15 cells (100X) (0-5/hpf); Lymphocytes 29 % (21-51); MDiff Complete? YES; Mean Corpuscular HGB CONC 32.5 g/dL (32.0-36.0); Mean Corpuscular Hemoglobin 31.5 pg (27.0-31.0); Mean Platelet Volume 7.2 fL (7.4-10.4); Monocytes 3 % (0-10); Neutrophil 64 % (42-75); Platelet Count 139 thou/uL (130-400); Platelet Morphology Comment Appears Adequate; RBC Distribution Width 13.6 % (11.5-14.5); Red Blood Cell (RBC) Count 2.99 mill/uL (4.70-6.10); White Blood Cell (WBC) Count 4.9 thou/uL (4.8-10.8)
[2020-07-21] MEDS: Cefepime 2 GM in Sodium Chloride 0.9% 100 ML IVPB SCH ×2 (05:42→16:22)
[2020-07-21] MEDS: Morphine 2 MG/ML VIAL SLOW IVP PRN ×4 (05:43→21:15)
[2020-07-21 07:29] LABS: Vancomycin, Trough 6.1 ug/mL
[2020-07-21] MEDS: FLUoxetine HCl 10 MG CAP PO SCH (09:25)
[2020-07-21] MEDS: Potassium Chloride 20 MEQ TAB PO SCH ×2 (09:25→16:22)
[2020-07-21] MEDS: Lisinopril 5 MG TAB PO SCH (09:26)
[2020-07-21] MEDS: Vancomycin 1 GM in Premix Bag 1 BAG IVPB SCH ×2 (09:26→16:22)
[2020-07-21] MEDS: Famotidine 20 MG TAB PO SCH ×2 (09:26→21:16)
--- NOTE | 2020-07-21 14:56 | PDOC.HOSPP ---
- Subjective Encounter Date: 07/21/20 Encounter Time: 14:50 Subjective: f/u for sepsis due to UTI with Klebsiella and blood cx + E. coli spp on Cefepime/Vancomycin. - Objective Vital Signs & Weight: Vital Signs (12 hours) Temp Pulse Resp BP Pulse Ox 07/21/20 11:22 98.2 F 64 18 126/75 99 07/21/20 07:35 97.4 F L 62 16 134/75 96 07/21/20 04:00 98.2 F 63 12 109/62 93 L Weight Weight 210 lb I&O: 07/20/20 07/21/20 07/22/20 06:59 06:59 06:59 Intake Total 1067 2470 Output Total 200 Balance 1067 2270 Result Diagrams: 07/21/20 03:56 07/21/20 03:56 Additional Labs: Microbiology 07/19/20 18:20 Urine voided Urine Culture - Final Klebsiella pneumoniae ssp pneu 07/19/20 18:20 Urine voided Urine Culture - Preliminary Presumptive Kleb/Enterobacter 07/19/20 16:47 Venous blood - Right Arm Blood Culture - Preliminary Escherichia coli 07/19/20 16:47 Venous blood - Right Arm Blood Culture - Preliminary Escherichia coli 07/19/20 16:47 Venous blood - Left Hand Blood Culture - Preliminary Specimen has been received and culture in progress. No Growth to date. 07/19/20 16:47 Venous blood - Left Hand Blood Culture - Preliminary NO GROWTH AT 48 HOURS Laboratory Tests 07/19/20 07/19/20 07/20/20 16:41 16:41 03:41 WBC 7.0 Hgb 11.0 L Neutrophils % 77.0 H Neutrophils % (Manual) Sodium 132 L 132 L Potassium 3.4 L Carbon Dioxide 20 L Total Bilirubin 3.8 H AST 94 H ALT 38 Alkaline Phosphatase 150 H 07/20/20 07/21/20 03:41 03:56 WBC Hgb Neutrophils % Neutrophils % (Manual) 64 Sodium Potassium Carbon Dioxide Total Bilirubin 2.0 H AST 67 H ALT Alkaline Phosphatase 115 H EKG Reviewed by me: Yes (Tele - SR) Hospitalist ROS - Medication Medications: Active Medications Generic Name Dose Route Start Last Admin Trade Name Freq PRN Reason Stop Dose Admin Famotidine 20 mg 07/20/20 09:00 07/21/20 09:26 Famotidine 20 Mg Tab PO 20 mg BID WILL Administration Fluoxetine HCl 10 mg 07/21/20 09:00 07/21/20 09:25 Fluoxetine Hcl 10 Mg Cap PO 10 mg DAILY WILL Administration Cefepime HCl 2 gm/ Sodium 100 mls @ 200 mls/hr 07/20/20 06:00 07/21/20 05:42 Chloride IVPB 100 mls 0600,1800 WILL Administration Sodium Chloride 1,000 mls @ 50 mls/hr 07/19/20 22:00 07/20/20 23:59 Normal Saline 0.9% IV 1,000 mls .Q20H WILL Administration Ibuprofen 600 mg 07/19/20 22:51 07/20/20 20:15 Ibuprofen 600 Mg Tab PO 600 mg Q6H PRN Administration Fever/Mild Pain Lactulose 20 gm 07/20/20 21:00 07/21/20 09:26 Lactulose 20 Gm/30 Ml Udcup PO 20 gm BID WILL Administration Lisinopril 5 mg 07/21/20 09:00 07/21/20 09:26 Lisinopril 5 Mg Tab PO 5 mg DAILY WILL Administration Morphine Sulfate 2 mg 07/19/20 22:55 07/21/20 11:31 Morphine 2 Mg/Ml Vial SLOW IVP 2 mg Q4H PRN Administration Pain Potassium Chloride 40 meq 07/20/20 17:00 07/21/20 09:25 Potassium Chloride 20 Meq Tab PO 40 meq BID-WM WILL Administration Sodium Chloride 10 ml 07/20/20 09:00 07/21/20 09:26 Flush - Normal Saline 10 Ml Syringe IVF 10 ml Q12HR WILL Administration - Exam General Appearance: NAD, awake alert Eye: PERRL, anicteric sclera ENT: normocephalic atraumatic, no oropharyngeal lesions Neck: supple, symmetric, no JVD, no thyromegaly Heart: RRR, no gallops, no rubs, normal peripheral pulses Heart - other findings: S1, S2 Respiratory: CTAB, no wheezes, no rales, no ronchi, normal chest expansion Gastrointestinal: soft, non-tender, normal bowel sounds, no guarding, no rigidity Gastrointestinal - other findings: distended Extremities: no cyanosis, no clubbing, no edema Skin: normal turgor, no lesions Neurological: cranial nerve grossly intact, no new deficit Musculoskeletal: normal tone, normal strength Psychiatric: normal affect, A&O x 3 Hosp A/P (1) Sepsis due to gram-negative UTI Code(s): A41.50 - GRAM-NEGATIVE SEPSIS, UNSPECIFIED; N39.0 - URINARY TRACT INFECTION, SITE NOT SPECIFIED Status: Acute Plan: Klebsiella spp on UCx and E. coli on Blood cx, continue Cefepime/Vancomycin until final cx sensitivities available (2) Syncope Code(s): R55 - SYNCOPE AND COLLAPSE Status: Acute (3) Hypokalemia Code(s): E87.6 - HYPOKALEMIA Status: Acute Plan: Improved, continue KCL supplementation (4) Hepatic cirrhosis Code(s): K74.60 - UNSPECIFIED CIRRHOSIS OF LIVER Status: Chronic - Plan continue antibiotics, director social, out of bed/ambulate, DVT proph w/SCDs Stable overall Continue Cefepime/Vancomycin Await for final Ucx/Blood cx sensitivities Resume Lactulose KCL 40meq po BID OOB with PT AM lab: CMP, Mg++ ? home in 24h
[2020-07-21] MEDS: Sodium Chloride 0.9% 1,000 ML IV SCH (21:08)
[2020-07-22] MEDS: Vancomycin 1 GM in Premix Bag 1 BAG IVPB SCH ×2 (00:55→09:45)
[2020-07-22] MEDS: Morphine 2 MG/ML VIAL SLOW IVP PRN ×2 (01:45→06:14)
[2020-07-22 02:19] LABS: #Basophils 0.1 thou/uL (0.0-0.2); #Eosinphils 0.1 thou/uL (0.0-0.7); #Lymphocytes 0.7 thou/uL (1.20-3.40); #Monocytes 0.7 thou/uL (0.11-0.59); %Basophils 1.5 % (0.0-1.0); %Eosinophils 2.6 % (0.0-10.0); %Monocytes 11.9 % (0.0-10.0); Hemoglobin 10.1 g/dL (14.0-18.0); Mean Corpuscular HGB CONC 32.1 g/dL (32.0-36.0); Mean Corpuscular Hemoglobin 30.8 pg (27.0-31.0); Mean Platelet Volume 6.8 fL (7.4-10.4); Platelet Count 164 thou/uL (130-400); RBC Distribution Width 13.5 % (11.5-14.5); Red Blood Cell (RBC) Count 3.27 mill/uL (4.70-6.10); White Blood Cell (WBC) Count 5.6 thou/uL (4.8-10.8)
[2020-07-22 02:57] LABS: ALT (SGPT) 29 U/L (8-55); AST (SGOT) 66 U/L (5-34); Albumin 1.9 g/dL (3.5-5.0); Alkaline Phosphatase 125 U/L (40-110); Anion Gap 7 mmol/L (10-20); BUN (Urea Nitrogen) 7 mg/dL (8.4-25.7); Bilirubin, Total 2.2 mg/dL (0.2-1.2); Calc. Creatinine Clearance 192 mL/min (70-130); Calcium 7.4 mg/dL (7.8-10.44); Carbon Dioxide 22 mmol/L (22-29); Chloride 107 mmol/L (98-107); Estimated GFR-MDRD Greater than 90; Globulin 3.8 g/dL (2.4-3.5); Glucose 98 mg/dL (70-105); Magnesium 1.7 mg/dL (1.6-2.6); Potassium 4.4 mmol/L (3.5-5.1); Protein, Total 5.7 g/dL (6.0-8.3); Sodium 132 mmol/L (136-145)
[2020-07-22] MEDS ORDERED: PHOS-NAK 1 PKT PACK PO SCH ×2 (04:00→08:00)
[2020-07-22] MEDS: Ibuprofen 600 MG TAB PO PRN ×2 (04:15→14:13)
[2020-07-22] MEDS: Cefepime 2 GM in Sodium Chloride 0.9% 100 ML IVPB SCH (06:13)
[2020-07-22] MEDS ORDERED: Magnesium 2 GM/50 ML 2 GM in Premix Bag 1 BAG IVPB SCH (06:45)
[2020-07-22 08:34] LABS: Vancomycin, Trough 10.8 ug/mL
[2020-07-22] MEDS: FLUoxetine HCl 10 MG CAP PO SCH (09:43)
[2020-07-22] MEDS: Potassium Chloride 20 MEQ TAB PO SCH ×2 (09:43→16:42)
[2020-07-22] MEDS: Lisinopril 5 MG TAB PO SCH (09:44)
[2020-07-22] MEDS: Sodium Chloride 0.9% 1,000 ML IV SCH (09:45)
[2020-07-22] MEDS: Famotidine 20 MG TAB PO SCH (09:45)
[2020-07-22 11:56] LABS: SARS-CoV-2 MS2 Positive; SARS-CoV-2 N Gene Negative; SARS-CoV-2 S Gene Negative; SARS-CoV-2 by NAA Not Detected (NotDetected); SARS-CoV-2 orf1ab Negative
[2020-07-22 15:48] VITALS: BP 151/78; TEMP 97.8
[2020-07-22] MEDS ORDERED: Vancomycin HCl 1.25 GM in Sodium Chloride 0.9% 250 ML 250 ML IVPB SCH (17:00)
--- NOTE | 2020-07-23 03:26 | DIS ---
DATE OF ADMISSION: 07/19/2020 DATE OF DISCHARGE: 07/22/2020 PRIMARY CARE PHYSICIAN: Thea Turner MD DISCHARGE DIAGNOSES: 1. Sepsis due to gram-negative urinary tract infection with Klebsiella and Escherichia coli species. 2. Syncope secondary to #1, resolved. 3. Hypokalemia, resolved. 4. Hepatic cirrhosis, chronic, stable. 5. Hyponatremia, chronic. 6. Chronic normocytic anemia, stable. CONSULTATIONS: None. PERTINENT LABORATORY AND X-RAY FINDINGS: Sodium ranged between 130 to 132, potassium ranged between 3.4 to 4.4, lactic acid level 2.0, phosphorus 2.0, magnesium level 1.7, total bilirubin ranged between 2.0 to 3.8, AST ranged between 66 to 94, and ALT ranged between 29 to 38. CBC showed a hemoglobin ranging between 9.1 to 11.0. Blood cultures 1/2 positive for E. coli species 07/19/2020. Urine culture dated 07/19/2020, showed greater than 100,000 colonies of Klebsiella pneumonia. Portable chest x-ray dated 07/19/2020, showed no acute cardiopulmonary process. CT of the brain without contrast dated 07/19/2020, showed no acute intracranial process. CT of the cervical spine dated 07/19/2020, showed no evidence of fracture or dislocation. 2D transthoracic echocardiogram dated 07/20/2020, showed ejection fraction of 60% to 65%. No evidence of mitral stenosis. HOSPITAL COURSE: The patient was initially admitted after presenting status post syncopal episode. The patient underwent extensive evaluation with initial metabolic workup showing evidence of urinary tract infection. The patient met sepsis criteria and was placed on IV vancomycin and cefepime and given intravenous normal saline. Blood cultures did show 1/2 positive samples for E. coli species and urine culture showed greater than 100,000 colonies of Klebsiella species. The patient continued on broad-spectrum IV antibiotic therapy and overall clinically stabilized. The patient received electrolyte replacement including potassium supplementation as well as pain control for rib pain, status post syncope and fall. Overall, the patient did remain clinically stable during the hospital course tolerating regular oral intake with stable vital signs. I have examined the patient at the time of discharge and discussed followup instructions. The patient verbalizes understanding and agreement, ready for discharge on 07/22/2020. DISCHARGE MEDICATIONS: 1. Lactulose 20 g p.o. daily. 2. Lasix 20 mg p.o. daily. 3. Prozac 10 mg p.o. daily. 4. Lisinopril 5 mg p.o. daily. 5. Omnicef 300 mg p.o. b.i.d. x7 days. 6. Tramadol 50 mg p.o. q.i.d. p.r.n. pain #20 given, no refills. FOLLOWUP: The patient may follow up with his primary care provider, Dr. Thea Turner within 7 days of discharge. CONDITION ON DISCHARGE: Stable. ACTIVITY: Ad-jeane. DIET: Heart healthy. CODE STATUS: Full. DISPOSITION: To home 07/22/2020. TIME SPENT: Total time preparing and coordinating discharge, 32 minutes. Job ID: [id number]
== END 2020-07-22 17:30 | disposition home or self-care (01) | DRG 872 ==
LOC: ERS 16:19 → 2NO 22:10
PROVIDERS: ADMIT Internal Medicine; ATTEND Internal Medicine
DX: A41.50 Gram-negative sepsis, unspecified (principal); N39.0 Urinary tract infection, site not specified; E87.1 Hypo-osmolality and hyponatremia; F41.9 Anxiety disorder, unspecified; F43.10 Post-traumatic stress disorder, unspecified; I10 Essential (primary) hypertension; R55 Syncope and collapse; J44.9 Chronic obstructive pulmonary disease, unspecified; E87.6 Hypokalemia; K74.60 Unspecified cirrhosis of liver; B96.1 Klebsiella pneumoniae [K. pneumoniae] as the cause of diseases classified elsewhere; Z90.49 Acquired absence of other specified parts of digestive tract; Z88.8 Allergy status to other drugs, medicaments and biological substances; Z20.828 Contact with and (suspected) exposure to other viral communicable diseases
CPT/HCPCS: 36415; 70450; 71045; 72125; 80048; 80053; 80202; 81003; 81015; 83605; 83735; 84100; 84484; 85025; 87040; 87077; 87086; 87149; 87186; 87635; 90471; 90662; 93005; 93306; 94760; G0008; J0692; J2270; J3370; J3475; J3490; U0003

== ENCOUNTER 2020-07-30 16:49 | Inpatient (IN) | payer OTHER, SELFPAY ==
[2020-07-30] MEDS ORDERED: Ondansetron PF 4 MG/2 ML Vial ONE (17:16)
[2020-07-30 17:33] LABS: #Basophils 0.1 thou/uL (0.0-0.2); #Eosinphils 0.1 thou/uL (0.0-0.7); #Lymphocytes 0.9 thou/uL (1.20-3.40); #Monocytes 0.9 thou/uL (0.11-0.59); #Neutrophils 8.2 thou/uL (1.40-6.50); %Basophils 0.5 % (0.0-1.0); %Eosinophils 0.7 % (0.0-10.0); %Lymphocytes 9.2 % (21.0-51.0); %Monocytes 8.6 % (0.0-10.0); Hemoglobin 12.8 g/dL (14.0-18.0); Mean Corpuscular HGB CONC 32.9 g/dL (32.0-36.0); Mean Corpuscular Hemoglobin 29.9 pg (27.0-31.0); Mean Corpuscular Volume 90.9 fL (78.0-98.0); Mean Platelet Volume 6.7 fL (7.4-10.4); Platelet Count 246 thou/uL (130-400); RBC Distribution Width 14.7 % (11.5-14.5); Red Blood Cell (RBC) Count 4.27 mill/uL (4.70-6.10); White Blood Cell (WBC) Count 10.1 thou/uL (4.8-10.8)
[2020-07-30] MEDS ORDERED: Cefepime 2 GM VIAL ONE (17:35)
[2020-07-30] MEDS ORDERED: Ampicillin 2 GM VIAL ONE (17:35)
[2020-07-30 17:39] LABS: INR-International Normal Ratio 1.7; PTT 34.6 sec (22.9-36.1); Prothrombin Time 20.4 sec (12.0-14.7)
[2020-07-30] MEDS ORDERED: Vancomycin 1 GM in Premix Bag 1 BAG IVPB SCH (17:45)
[2020-07-30 18:00] LABS: ALT (SGPT) 40 U/L (8-55); AST (SGOT) 123 U/L (5-34); Albumin 2.6 g/dL (3.5-5.0); Alkaline Phosphatase 222 U/L (40-110); Anion Gap 13 mmol/L (10-20); BUN (Urea Nitrogen) 8 mg/dL (8.4-25.7); Bilirubin, Total 5.3 mg/dL (0.2-1.2); Calc. Creatinine Clearance 0 mL/min (70-130); Calcium 8.2 mg/dL (7.8-10.44); Carbon Dioxide 18 mmol/L (22-29); Chloride 101 mmol/L (98-107); Estimated GFR-MDRD Greater than 90; Globulin 6.7 g/dL (2.4-3.5); Glucose 77 mg/dL (70-105); Lipase 20 U/L (8-78); Magnesium 1.9 mg/dL (1.6-2.6); Potassium 5.3 mmol/L (3.5-5.1); Protein, Total 9.3 g/dL (6.0-8.3); Sodium 127 mmol/L (136-145)
[2020-07-30] MEDS ORDERED: Vancomycin 1 GM/200 ML BAG ONE (18:20)
--- NOTE | 2020-07-30 18:25 | CT ---
CT OF CERVICAL SPINE PERFORMED WITHOUT CONTRAST ENHANCEMENT: 07/30/20 HISTORY: Syncopal episode. Neck pain. Altered mental status and fever. Patient is status post fall. COMPARISON: 07/19/20 exam. The vertebral bodies are normal in height. Degenerative changes are seen along the course of the spin e. Disc narrowing most pronounced at C6-7. The facets are in normal alignment. There are arthritic ch anges present. Mild left sided foraminal narrowing is seen at C3-4. No central canal stenosis. No CT evidence for fr acture. No interval change since the prior exam. IMPRESSION: No acute findings. Stable exam. POS: NITIN
--- NOTE | 2020-07-30 18:32 | CT ---
CT OF BRAIN PERFORMED WITH AND WITHOUT CONTRAST ENHANCEMENT: 07/30/20 HISTORY: Recent fall. Altered mental status. COMPARISON: A 07/19/20 exam. There is generalized ventricular and sulcal prominence. The ventricles are large for the degree of newman lcal prominence. This is a similar finding that was seen on the prior examination. There are some mor e chronic appearing white matter changes noted. Third ventricle is also dilated with a more normal ap pearance to the fourth ventricle. Decreased attenuation of the periventricular white matter is felt t o be on the basis of chronic white matter change. Some acute hydrocephalus is not totally excluded as a possibility but the appearance of the ventricle is very similar to a previous 2019 study. IMPRESSION: No acute intracranial abnormalities. No areas of abnormal enhancement. Ventricles are enlarged as com pared to the sulcal prominence raising the possibility of normal pressure hydrocephalus. POS: NITIN
[2020-07-30] MEDS ORDERED: Midazolam HCl 2 mg/2 ml Vial ONE (18:36)
[2020-07-30] MEDS ORDERED: Vancomycin HCl 1.75 GM in Sodium Chloride 0.9% 500 ML IVPB SCH (18:45)
--- NOTE | 2020-07-30 18:53 | CT ---
CT ABDOMEN AND PELVIS PERFORMED WITH CONTRAST ENHANCEMENT: 07/30/20 HISTORY: Cirrhosis. Hepatitis C. Diffuse abdominal pain. COMPARISON: A 06/26/20 exam. The lung bases are clear of infiltrative process. There are acute left sided 7th, 8th, 9th and 10th r ib fractures. No pneumothorax. Some atelectatic change is seen. Post cholecystectomy change and what appear to be some postop changes of the right lobe of the liver are present. There is fairly pronounced intrahepatic biliary ductal dilatation. The biliary ducts are much more dilated within the more hypertrophied left lobe. The spleen shows no focal abnormalities. Splenic varices are noted. Pancreas region appears grossly unremarkable. There is motion artifact and artifact related to arm position. The right and left adrenal glands and right and left kidneys are n ormal in size. Small hypodensities involving the kidneys are statistically cysts. No significant severino aortic or mesenteric adenopathy. Biliary stent remains in place. Some minimal pneumobilia is again de monstrated. CT of pelvis performed with contrast enhancement. There is mild ascites noted. This is increased sli ghtly as compared to the prior examination. Appendix region appears unremarkable. A small fat contain ing paraumbilical hernia is seen. IMPRESSION: 1. Acute left 7th through 10th posterior rib fractures. No pneumothorax. 2. Biliary stent in place. There is marked dilatation of the left sided biliary ductal system. L anthony changes on the right. This is a stable finding. 3. Splenic varices again demonstrated. 4. Small renal cyst. 5. Some mild ascites with some fluid in the pelvis. Increased as compared to the prior exam. POS: [facility]
[2020-07-30 20:11] LABS: CSF Source CSF; Clarity Hazy (Clear); Tube # 4
[2020-07-30 20:12] LABS: CSF Source CSF; Clarity Cloudy/Turbid (Clear); Tube # 1
[2020-07-30 21:20] LABS: Lactic Acid 2.4 mmol/L (0.5-2.2)
[2020-07-30 21:21] LABS: CSF, Glucose 41 mg/dl (40-70); CSF, Protein 50 mg/dL (15-40)
[2020-07-30 21:34] LABS: Color Of CSF Supernatant COLORLESS (Colorless); Tube # 2; Unspun CSF Color PINK (Colorless)
[2020-07-30] MEDS ORDERED: Morphine 4 MG/ML VIAL ONE (21:43)
[2020-07-30 22:06] LABS: Bilirubin Negative (Negative); Blood, Urine Negative (Negative); Clarity Clear (Clear); Glucose, Urine (Dipstick) Normal (Negative); Ketone, Urine Negative (Negative); Leukocyte Negative Leu/uL (Negative); Nitrite Negative (Negative); Protein, Urine (Dipstick) 10 mg/dL (Neg-Trace); Specific Gravity, Urine 1.046 (1.002-1.036); Urobilinogen 6 mg/dL (Less than 2); pH, Urine 7.5 (5.0-9.0)
--- NOTE | 2020-07-30 22:32 | PDOC.HHP ---
Hospitalist HPI - History of Present Illness Syncope History of Present Illness: 55-year-old gentleman with a history of liver cirrhosis, hypertension, history of multiple head injuries in the past, hepatitis C was brought to the emergency department due to transient loss of consciousness. Patient reports he felt dizzy and fell on the way to a grocery store. He states that he does not remember how he got to the emergency department. He was hospitalized here 2 weeks ago and treated for urosepsis, and subsequently discharged with Omnicef with patient failed to take. According to him the ED note patient had waxing and waning mentation whilst in the ED. Patient was noted to be tachycardic and febrile with a temperature of 102.4. He reported history of brain infection in the past but could not provide further details. Sepsis protocol was initiated in the ED, patient given IV fluid, lumbar puncture performed for concern for [employer] infection and patient given antibiotics for meningitis. Patient was oriented to person place and time during my assessment in the ED. CT abdomen and pelvis done demonstrated left 7 through 10th posterior rib fractures, no pneumothorax. It also demonstrated biliary stent and marked dilatation of the left-sided biliary duct system which is a stable finding. CT head showed no acute intracranial changes but demonstrated findings suggestive of normal pressure hydrocephalus. Patient admitted for further management. Hospitalist ROS - Review of Systems Other: Patient denied any chest pain or palpitation. He denied any diarrhea or nausea or vomiting. He was complaining of chest pain probably from the rib fractures. Except as documented, all other systems reviewed and negative. - Medication Medications: Medication Instructions Recorded Confirmed Type FLUoxetine HCl [Prozac] 10 mg PO DAILY 07/20/20 07/20/20 History Furosemide [Lasix] 20 mg PO DAILY 07/20/20 07/20/20 History Lactulose [Kristalose] 20 gm PO DAILY 07/20/20 07/20/20 History Lisinopril [Zestril] 5 mg PO DAILY 07/20/20 07/20/20 History Cefdinir [Omnicef] 300 mg PO BID #14 cap 07/22/20 Rx traMADol HCl [Tramadol HCl] 50 mg PO QID #20 tablet 07/22/20 Rx Hospitalist History - Past Medical History Other Medical History: Liver cirrhosis, hepatitis C, COPD, hypertension, history of multiple head injuries, posttraumatic stress disorder, anxiety. - Past Surgical History Other Surgical History: Gallbladder surgery, biliary stent placement. - Family History Family History: reports: cerebrovascular accident - Social History Smoking Status: Never smoker Alcohol: reports: None Living Situation: With Family - Exam General Appearance: NAD, awake alert Eye: PERRL, anicteric sclera ENT: normocephalic atraumatic, no oropharyngeal lesions, moist mucosa Neck: supple, symmetric, no JVD, no thyromegaly Heart: RRR, no murmur, no gallops Respiratory: CTAB, no wheezes, no rales Gastrointestinal: soft, non-tender, non-distended, normal bowel sounds Extremities: no cyanosis, no edema Skin: normal turgor, no rashes Neurological: cranial nerve grossly intact, no weakness, no focal deficits Musculoskeletal: normal tone, normal strength Psychiatric: normal affect, normal behavior, A&O x 3 Hospitalist Results - Labs Result Diagrams: 07/30/20 17:21 07/30/20 17:16 Lab results: WBC 10.1 thou/uL (4.8-10.8) 07/30/20 17:21 Hgb 12.8 g/dL (14.0-18.0) L 07/30/20 17:21 Hct 38.8 % (42.0-52.0) L 07/30/20 17:21 MCV 90.9 fL (78.0-98.0) 07/30/20 17:21 Plt Count 246 thou/uL (130-400) 07/30/20 17:21 Neutrophils % 81.0 % (42.0-75.0) H 07/30/20 17:21 Sodium 127 mmol/L (136-145) L 07/30/20 17:16 Potassium 5.3 mmol/L (3.5-5.1) H 07/30/20 17:16 Chloride 101 mmol/L (98-107) 07/30/20 17:16 Carbon Dioxide 18 mmol/L (22-29) L 07/30/20 17:16 BUN 8 mg/dL (8.4-25.7) L 07/30/20 17:16 Creatinine 0.77 mg/dL (0.7-1.3) 07/30/20 17:16 Glucose 77 mg/dL (70-105) 07/30/20 17:16 Lactic Acid 2.4 mmol/L (0.5-2.2) H 07/30/20 20:07 Calcium 8.2 mg/dL (7.8-10.44) 07/30/20 17:16 Total Bilirubin 5.3 mg/dL (0.2-1.2) H 07/30/20 17:16 AST 123 U/L (5-34) H 07/30/20 17:16 ALT 40 U/L (8-55) 07/30/20 17:16 Alkaline Phosphatase 222 U/L (40-110) H 07/30/20 17:16 Ammonia 95 umol/L (18-72) H 07/30/20 17:59 Troponin I 0.015 ng/mL (< 0.028) 07/30/20 17:21 Serum Total Protein 9.3 g/dL (6.0-8.3) H 07/30/20 17:16 Albumin 2.6 g/dL (3.5-5.0) L 07/30/20 17:16 Lipase 20 U/L (8-78) 07/30/20 17:16 Urine Ketones Negative mg/dL (Negative) 07/30/20 21:44 Urine Blood Negative (Negative) 07/30/20 21:44 Urine Nitrite Negative (Negative) 07/30/20 21:44 Ur Leukocyte Esterase Negative Otilia/uL (Negative) 07/30/20 21:44 Hospitalist H&P A/P - Problem (1) Sepsis with metabolic encephalopathy Code(s): A41.9 - SEPSIS, UNSPECIFIED ORGANISM; R65.20 - SEVERE SEPSIS WITHOUT SEPTIC SHOCK; G93.41 - METABOLIC ENCEPHALOPATHY Status: Acute (2) Fall Code(s): W19.XXXA - UNSPECIFIED FALL, INITIAL ENCOUNTER Status: Acute (3) Rib fractures Code(s): S22.39XA - FRACTURE OF ONE RIB, UNSP SIDE, INIT FOR CLOS FX Status: Acute (4) Syncope Code(s): R55 - SYNCOPE AND COLLAPSE Status: Acute (5) Hepatic cirrhosis Code(s): K74.60 - UNSPECIFIED CIRRHOSIS OF LIVER Status: Chronic (6) Normal pressure hydrocephalus Code(s): G91.2 - (IDIOPATHIC) NORMAL PRESSURE HYDROCEPHALUS Status: Acute - Plan Plan: Admit patient to telemetry. Continue sepsis protocol initiated in the ED. Broad-spectrum antibiotic coverage with IV Rocephin and vancomycin, to provide coverage for meningitis. Follow CSF microscopy, cell count Gram stain and culture. Consult infectious disease. Pain management with IV morphine. Consult to trauma team to monitor rib fractures. Check orthostatic vitals. Neurology consult regarding normal pressure hydrocephalus.
[2020-07-30] MEDS ORDERED: Ondansetron ODT 4 MG TAB SL PRN (23:00)
[2020-07-30] MEDS ORDERED: Ondansetron PF 4 MG/2 ML Vial IVP PRN (23:00)
[2020-07-30] MEDS: Sodium Chloride 0.9% 1,000 ML IV SCH (23:29)
[2020-07-30] MEDS: Morphine 2 MG/ML VIAL SLOW IVP PRN (23:29)
[2020-07-31] MEDS: Morphine 2 MG/ML VIAL SLOW IVP PRN ×4 (03:36→23:40)
[2020-07-31] MEDS ORDERED: Vancomycin 1 GM in Premix Bag 1 BAG IVPB SCH (04:00)
[2020-07-31] MEDS ORDERED: Ketorolac Tromethamine 30 MG/ML VIAL IVP PRN (06:37)
[2020-07-31] MEDS: Sodium Chloride 0.9% 1,000 ML IV SCH ×3 (08:36→21:34)
[2020-07-31] MEDS ORDERED: Vancomycin HCl 1.75 GM in Sodium Chloride 0.9% 500 ML IVPB SCH (09:00)
[2020-07-31] MEDS ORDERED: Enoxaparin Sodium 40 MG/0.4 ML SYRINGE SC SCH (09:00)
[2020-07-31] MEDS ORDERED: cefTRIAXone\\ROCEPHIN 2 GM in Sodium Chloride 0.9% 100 ML IVPB SCH (09:00)
[2020-07-31 09:10] LABS: #Lymphocytes 0.6 thou/uL (1.20-3.40); #Neutrophils 7.8 thou/uL (1.40-6.50); %Basophils 0.3 % (0.0-1.0); %Eosinophils 0.4 % (0.0-10.0); %Lymphocytes 6.4 % (21.0-51.0); %Monocytes 10.4 % (0.0-10.0); %Neutrophils 82.5 % (42.0-75.0); Hemoglobin 9.8 g/dL (14.0-18.0); Mean Corpuscular HGB CONC 31.6 g/dL (32.0-36.0); Mean Corpuscular Hemoglobin 29.9 pg (27.0-31.0); Mean Corpuscular Volume 94.9 fL (78.0-98.0); Mean Platelet Volume 6.7 fL (7.4-10.4); Platelet Count 155 thou/uL (130-400); RBC Distribution Width 14.7 % (11.5-14.5); Red Blood Cell (RBC) Count 3.26 mill/uL (4.70-6.10); White Blood Cell (WBC) Count 9.4 thou/uL (4.8-10.8)
[2020-07-31] MEDS: MEROPENEM 1 GM/50 ML 1 GM in Premix Bag 1 BAG IVPB SCH ×3 (09:11→22:59)
[2020-07-31 09:50] LABS: ALT (SGPT) 26 U/L (8-55); AST (SGOT) 60 U/L (5-34); Albumin 1.7 g/dL (3.5-5.0); Alkaline Phosphatase 156 U/L (40-110); Anion Gap 9 mmol/L (10-20); BUN (Urea Nitrogen) 10 mg/dL (8.4-25.7); Bilirubin, Total 3.9 mg/dL (0.2-1.2); CRP (Inflammatory) 7.79 mg/dL (= or < 0.5); Calc. Creatinine Clearance 151 mL/min (70-130); Calcium 7.1 mg/dL (7.8-10.44); Carbon Dioxide 19 mmol/L (22-29); Chloride 107 mmol/L (98-107); Estimated GFR-MDRD Greater than 90; Globulin 4.6 g/dL (2.4-3.5); Glucose 84 mg/dL (70-105); Magnesium 1.8 mg/dL (1.6-2.6); Potassium 4.2 mmol/L (3.5-5.1); Protein, Total 6.3 g/dL (6.0-8.3); Sodium 131 mmol/L (136-145)
[2020-07-31 10:06] LABS: Ref Lab Test Ordered CSF MENINGITIS PANEL
[2020-07-31] MEDS: Vancomycin HCl 1.75 GM in Sodium Chloride 0.9% 500 ML IVPB SCH ×2 (11:31→22:59)
--- NOTE | 2020-07-31 12:48 | EEG ---
DATE OF SERVICE: 07/31/2020 ATTENDING PHYSICIAN: Migdalia Booth MD This EEG was performed using 24-channel [employer] video digital EEG machine with 24-disk electrodes. This was an extended 2 hours 4 minutes of inpatient video EEG recording. Digital analysis of the EEG was done for spike and seizure detection which revealed no abnormalities. BACKGROUND: The posterior background rhythm is 8 to 8.5 hertz. Minimal reactivity is seen with eye opening and closure. HYPERVENTILATION: Not performed. PHOTIC STIMULATION: No significant response seen with photic stimulation. SLEEP: Drowsiness is observed. EEG DIAGNOSIS: Occasional irregular theta activity seen during the recording. CLINICAL INTERPRETATION: This EEG is consistent with mild generalized nonspecific cerebral dysfunction. Job ID: [id number]
[2020-07-31 12:57] LABS: SARS-CoV-2 MS2 Positive; SARS-CoV-2 N Gene Negative; SARS-CoV-2 S Gene Negative; SARS-CoV-2 by NAA Not Detected (NotDetected); SARS-CoV-2 orf1ab Negative
--- NOTE | 2020-07-31 13:23 | CON ---
NEUROLOGY CONSULTATION DATE OF CONSULTATION: 07/31/2020 REASON FOR CONSULTATION: Syncope/transient loss of awareness/normal-pressure hydrocephalus, suspicion on head CT. HISTORY OF PRESENT ILLNESS: Mr. De Santiago is a 55-year-old gentleman with history significant for liver cirrhosis, hypertension, multiple head injuries and hepatitis C, presented to the emergency room with transient loss of consciousness. Per patient, he felt extremely dizzy on his way to the grocery store and fell and lost consciousness. The patient has no recollection of the event. The patient denies any tongue bite or urinary incontinence and does not recall the incident. He was hospitalized two weeks ago for urosepsis and was subsequently discharged on Omnicef, which the patient has failed to take. On arrival to the emergency room, he has waxing and waning mental status and with tachycardia and a fever of 102. There is a concern about meningitis, so sepsis protocol was initiated and lumbar puncture was performed for [employer] infection and he was started on antibiotics. CT scan did not reveal any acute intracranial pathology, but demonstrated findings suggestive of normal-pressure hydrocephalus. Neurology was consulted for further recommendations. The patient denies nausea, vomiting, headache, chest pain, abdominal pain, focal weakness, focal paresthesias, problems with swallowing, recent illness, loss of smell, or recent exposure to COVID. he patient does admit having ongoing memory issues, falls, difficulty walking, and episodes of urinary incontinence on and off since the last six months, so he does fit in the spectrum of normal-pressure hydrocephalus REVIEW OF SYSTEMS: All 14 systems were reviewed and were negative except the pertinent positives and negatives mentioned in the HPI. HOME MEDICATIONS: 1. Fluoxetine 10 mg p.o. daily. 2. Lasix 20 mg p.o. daily. 3. Lactulose 20 g p.o. daily. 4. Lisinopril 5 mg p.o. daily. 5. Omnicef 300 mg p.o. b.i.d. 6. The patient was not taking tramadol 50 mg p.o. q.i.d. PAST MEDICAL HISTORY: Liver cirrhosis, COPD, history of hepatitis C, history of multiple head injuries, posttraumatic stress disorder, and anxiety. PAST SURGICAL HISTORY: Gallbladder surgery and biliary stent placement. FAMILY HISTORY: Significant for cerebrovascular accident. SOCIAL HISTORY: The patient lives with family. Denies smoking, illegal drug use. ALLERGIES: Acetaminophen PHYSICAL EXAMINATION: General Appearance: NAD, awake alert Eye: PERRL, anicteric sclera ENT: normocephalic atraumatic, no oropharyngeal lesions, moist mucosa Neck: supple, symmetric, no JVD, no thyromegaly Heart: RRR, no murmur, no gallops Respiratory: CTAB, no wheezes, no rales Gastrointestinal: soft, non-tender, non-distended, normal bowel sounds Extremities: no cyanosis, no edema Skin: normal turgor, no rashes Neurological: Mental status, the patient is alert and oriented to person, place, and time. Speech is clear. Cranial nerves 2 through 12 intact. Motor, muscle tone and bulk are normal. Moving all fours. Strength 5/5 bilaterally. Sensory intact. Gait deferred due to the patient's safety reasons. Cerebellar, finger-nose testing intact. DATA REVIEWED: I reviewed the labs, which were significant for anemia with hemoglobin of 12.8, hematocrit of 38.8, and hyponatremia of 127 and hyperkalemia of 5.3. Lab results: WBC 10.1 thou/uL (4.8-10.8) 07/30/20 17:21 Hgb 12.8 g/dL (14.0-18.0) L 07/30/20 17:21 Hct 38.8 % (42.0-52.0) L 07/30/20 17:21 MCV 90.9 fL (78.0-98.0) 07/30/20 17:21 Plt Count 246 thou/uL (130-400) 07/30/20 17:21 Neutrophils % 81.0 % (42.0-75.0) H 07/30/20 17:21 Sodium 127 mmol/L (136-145) L 07/30/20 17:16 Potassium 5.3 mmol/L (3.5-5.1) H 07/30/20 17:16 Chloride 101 mmol/L (98-107) 07/30/20 17:16 Carbon Dioxide 18 mmol/L (22-29) L 07/30/20 17:16 BUN 8 mg/dL (8.4-25.7) L 07/30/20 17:16 Creatinine 0.77 mg/dL (0.7-1.3) 07/30/20 17:16 Glucose 77 mg/dL (70-105) 07/30/20 17:16 Lactic Acid 2.4 mmol/L (0.5-2.2) H 07/30/20 20:07 Calcium 8.2 mg/dL (7.8-10.44) 07/30/20 17:16 Total Bilirubin 5.3 mg/dL (0.2-1.2) H 07/30/20 17:16 AST 123 U/L (5-34) H 07/30/20 17:16 ALT 40 U/L (8-55) 07/30/20 17:16 Alkaline Phosphatase 222 U/L (40-110) H 07/30/20 17:16 Ammonia 95 umol/L (18-72) H 07/30/20 17:59 Troponin I 0.015 ng/mL (< 0.028) 07/30/20 17:21 Serum Total Protein 9.3 g/dL (6.0-8.3) H 07/30/20 17:16 Albumin 2.6 g/dL (3.5-5.0) L 07/30/20 17:16 Lipase 20 U/L (8-78) 07/30/20 17:16 Urine Ketones Negative mg/dL (Negative) 07/30/20 21:44 Urine Blood Negative (Negative) 07/30/20 21:44 Urine Nitrite Negative (Negative) 07/30/20 21:44 Ur Leukocyte Esterase Negative Otilia/uL (Negative) 07/30/20 21:44 ASSESSMENT AND PLAN: (1) Sepsis with metabolic encephalopathy Code(s): A41.9 - SEPSIS, UNSPECIFIED ORGANISM; R65.20 - SEVERE SEPSIS WITHOUT SEPTIC SHOCK; G93.41 - METABOLIC ENCEPHALOPATHY Status: Acute (2) Fall Code(s): W19.XXXA - UNSPECIFIED FALL, INITIAL ENCOUNTER Status: Acute (3) Rib fractures Code(s): S22.39XA - FRACTURE OF ONE RIB, UNSP SIDE, INIT FOR CLOS FX Status: Acute (4) Syncope Code(s): R55 - SYNCOPE AND COLLAPSE Status: Acute (5) Hepatic cirrhosis Code(s): K74.60 - UNSPECIFIED CIRRHOSIS OF LIVER Status: Chronic (6) Normal pressure hydrocephalus Code(s): G91.2 - (IDIOPATHIC) NORMAL PRESSURE HYDROCEPHALUS Status: Acute Mr. Seth De Santiago is a 55-year-old male, who was admitted for altered mental status and episode of transient loss of awareness. EEG completed and reviewed, which was negative for seizure activity. Consider MRI brain to rule out acute intracranial process and to evaluate for seizure focus. The patient does admit having ongoing memory issues, falls, difficulty walking, and episodes of urinary incontinence on and off since the last six months, so he does fit in the spectrum of normal-pressure hydrocephalus; However, his symptoms are not acute, so Neurosurgery followup is recommended as outpatient to further evaluate his condition once acute issues are resolved. Continue medical management per primary team and Infectious Disease. Continue home medications. PT/OT. We will continue to follow. Thank you for the consult. Job ID: [id number] [email or web address]
[2020-07-31 15:49] LABS: Hemoglobin 10.1 g/dL (14.0-18.0); Platelet Count 155 thou/uL (130-400)
[2020-07-31] MEDS ORDERED: Meropenem 1 GM in Sodium Chloride 0.9% 100 ML IVPB SCH (16:00)
--- NOTE | 2020-07-31 16:39 | PDOC.HOSPP ---
- Subjective Encounter Date: 07/31/20 Encounter Time: 11:30 Subjective: Patient seen and examined for syncope with sepsis and toxic metabolic encephalopathy. Mentation improving. Denies any new headache, double vision or blurring of vision. No chest pain, shortness of breath or abdominal pain reported. - Objective Vital Signs & Weight: Vital Signs (12 hours) Temp Pulse Resp BP Pulse Ox 07/31/20 15:32 97.9 F 71 18 113/60 99 07/31/20 13:40 98.1 F 67 18 98/53 L 07/31/20 11:57 98.1 F 66 18 100/63 97 07/31/20 07:18 97.8 F 71 18 107/68 95 Weight Weight 203 lb 1.6 oz I&O: 07/30/20 07/31/20 08/01/20 06:59 06:59 06:59 Intake Total 730 Balance 730 Result Diagrams: 08/01/20 03:58 08/01/20 03:58 Additional Labs: Abnormal Lab Results - Last 48 hrs 07/30/20 17:16: Sodium 127 L, Potassium 5.3 H, Carbon Dioxide 18 L, BUN 8 L, Total Bilirubin 5.3 H, AST 123 H, Alkaline Phosphatase 222 H, Serum Total Protein 9.3 H, Albumin 2.6 L, Globulin 6.7 H, Albumin/Globulin Ratio 0.4 L 07/30/20 17:21: RBC 4.27 L, Hgb 12.8 L, Hct 38.8 L, RDW 14.7 H, MPV 6.7 L, Neutrophils % 81.0 H, Lymphocytes % 9.2 L, Neutrophils # 8.2 H, Lymphocytes # 0.9 L, Monocytes # 0.9 H 07/30/20 17:21: Lactic Acid 3.5 H 07/30/20 17:21: PT 20.4 H 07/30/20 17:59: Ammonia 95 H 07/30/20 18:57: CSF Color PINK H, CSF Total Protein 50 H 07/30/20 18:57: Fluid Color [place] H, Fluid Clarity Hazy H 07/30/20 18:57: Fluid Color [place] H, Fluid Clarity Cloudy/Turbid H 07/30/20 20:07: Lactic Acid 2.4 H 07/30/20 21:44: Ur Specific [place] 1.046 H, Urine Urobilinogen 6 A 07/30/20 : Lactic Acid 2.3 H 07/31/20 08:49: Sodium 131 L, Carbon Dioxide 19 L, Anion Gap 9 L, Calcium 7.1 L, Total Bilirubin 3.9 H, AST 60 H, Alkaline Phosphatase 156 H, C-Reactive Protein 7.79 H, Albumin 1.7 L, Globulin 4.6 H, Albumin/Globulin Ratio 0.4 L 07/31/20 08:49: RBC 3.26 L, Hgb 9.8 L, Hct 30.9 L, MCHC 31.6 L, RDW 14.7 H, MPV 6.7 L, Neutrophils % 82.5 H, Lymphocytes % 6.4 L, Monocytes % 10.4 H, Neutrophils # 7.8 H, Lymphocytes # 0.6 L, Monocytes # 1.0 H 07/31/20 15:39: Hgb 10.1 L, Hct 31.0 L Microbiology - Entire Visit 07/30/20 21:44 Urine voided Urine Culture - Preliminary NO GROWTH AT 12 HOURS 07/30/20 18:51 Lumbar - Pending Body Fluid Culture - Preliminary 07/30/20 17:18 Venous blood - Left Hand Blood Culture - Preliminary Specimen has been received and culture in progress. No Growth to date. 07/30/20 17:21 Venous blood - Left Hand Blood Culture - Preliminary Specimen has been received and culture in progress. No Growth to date. Radiology Reviewed by me: Yes (CT brain? NPH) EKG Reviewed by me: Yes (Telemetrysinus rhythm) Hospitalist ROS - Review of Systems Respiratory: denies: cough, dry, shortness of breath, hemoptysis, SOB with excertion, pleuritic pain, sputum, wheezing, other Cardiovascular: denies: chest pain, palpitations, orthopnea, paroxysmal noc. dyspnea, edema, light headedness, other All other systems reviewed; all pertinent +/- noted in HPI/Subj - Medication Medications: Active Medications Generic Name Dose Route Start Last Admin Trade Name Freq PRN Reason Stop Dose Admin Sodium Chloride 1,000 mls @ 125 mls/hr 07/31/20 07:45 07/31/20 08:36 Normal Saline 0.9% IV 1,000 mls .Q8H WILL Administration Meropenem 1 gm/ Device 50 mls @ 100 mls/hr 07/31/20 08:00 07/31/20 15:47 IVPB 50 mls [id number],1600,[id number] WILL Administration Vancomycin HCl 1.75 gm/ Sodium 500 mls @ 250 mls/hr 07/31/20 11:00 07/31/20 11:31 Chloride IVPB 500 mls 1100,2300 WILL Administration Morphine Sulfate 2 mg 07/30/20 22:41 07/31/20 15:46 Morphine 2 Mg/Ml Vial SLOW IVP 2 mg Q4H PRN Administration Severe Pain (7-10) - Exam General Appearance: ill appearing Neck: supple, no JVD Heart: RRR, no gallops, no rubs, normal peripheral pulses Respiratory: no wheezes, no rales, no ronchi, normal chest expansion Gastrointestinal: soft, normal bowel sounds, no guarding, no rigidity Extremities: no cyanosis, no clubbing, no edema Extremities - other findings: No calf tenderness Skin: normal turgor Neurological: no new deficit Musculoskeletal: generalized weakness Psychiatric: A&O x 3 Psychiatric - other findings: Somewhat slow to respond Hosp A/P - Plan #Syncopesuspected due to orthostatic hypotension, rule out cardiac arrhythmia Patient was supposed to be on telemetry floor per H&P. Will transfer to telemetry from [place] [id number] #Severe sepsis with toxic metabolic encephalopathy? Etiology. Patient has biliary stent which could be possible source of infection. We will consult gastroenterology/infectious disease. Change antibiotics to vancomycin with meropenem. Await infectious disease input. Lactic acid improved. Discontinue isolation for meningitis if okay with infectious disease. Ascending cholangitis may be a possibility since patient has a biliary stent since January 2020. He was recently admitted for E. coli bacteremia and was dis charged on 07/22. #Chronic hepatitis C with cirrhosis with biliary stent. Patient also has coagulopathy, hypoalbuminemia, ascites with splenic varices. Continue to monitor. #Recent left second through 10th rib fracture from mechanical fall. #Hyponatremia/hypokalemia/hypomagnesemia We will replace #Anxiety with posttraumatic stress disorderpatient denies any suicidal ideation #Chronic anemia probably due to nutritional deficiency Will monitor #COPD Add PRN nebulizer treatments #DVT prophylaxiswill discontinue Lovenox due to coagulopathy. Patient received 1 dose this morning. #Discharge planningpatient will require 2-3 more days for stabilization. #Other problems: Renal cyst, history of hepatic encephalopathy in August 03,? Pancreatic mass, acetaminophen allergy
--- NOTE | 2020-07-31 23:43 | CON ---
DATE OF CONSULTATION: 07/31/2020 REASON FOR CONSULTATION: Bacteremia. HISTORY OF PRESENT ILLNESS: A 55-year-old patient who has a history of chronic hepatitis C with cirrhosis, never treated before. He was admitted in January 2020 and presented with nausea, vomiting, abdominal pain, diarrhea, and fever with chills. Initial evaluation demonstrated abnormal liver function tests secondary to obstructive jaundice, extrahepatic. The January 2020 CT scan demonstrated marked dilatation of intra and extrahepatic biliary system, greater than expected for the reservoir effect from prior cholecystectomy. There was a what appeared to be an abnormal soft tissue density in the distal common bile duct. The patient also had a CT angio of the chest, which was negative for pulmonary embolism. Gastroenterology was consulted and he was then transferred to [facility] because it was felt that the patient would benefit from an endoscopic ultrasound, so he spent 2 days in [facility], reportedly a stent was placed. He is not aware of any specific diagnosis as a cause of his extrahepatic biliary obstruction, but he does not think that they told me he had any form of malignancy. Again, he does not think that they told him that he had any form of malignancy. Subsequently, he was readmitted on July 19 after a syncopal event. He had a positive urine culture for Klebsiella pneumoniae, but his blood culture yielded E coli with resistance to quinolones, trimethoprim sulfa, ampicillin, and sulbactam. Urinalysis on July 19 showed 21 to 50 wbc's per high-power field, so it was felt that the urinary tract infection was responsible for the patient's clinical changes. He was discharged on oral Omnicef for 7 days. On July 30, he was brought by EMS with another episode of loss of consciousness, but no seizure activity and apparently he did not take any antimicrobials with the lack of insurance and was unable to purchase medication. On arrival, he was alert, oriented. Initial findings included a BP of 150/79 and temperature 102.4, respiratory rate 29, O2 saturation 97% on room air. On exam, the patient did not appear in acute distress, he is a little bit confused. There is tenderness in the abdominal area described. He was able to move extremities on command, but was again confused. The other findings included urinalysis with negative leukocyte esterase. WBC of 10.1, hemoglobin 12.8, platelets 246 with 81% neutrophils. Bilirubin 5.3, the previous bilirubin of 2.2, AST 123, prior value was 66, ALT was 40, and alkaline phosphatase was 222 with a prior value of 125 in July 22. Albumin is 2.6. Ammonia was 95. Lactic acid was 3.5. Because of his mental state, he had a spinal fluid done, which showed RBCs from accidental puncture of venous plexus around the subarachnoidal area and protein was 50 and glucose 41. Serum glucose was 77. Imaging studies include an abdomen and pelvis CT on the , which demonstrated rib fractures, left side through , biliary stent in place with marked dilation of left-sided biliary ductal system, lesser changes on the right splenic varices, and mild ascites. A brain CT was performed as well and showed no acute abnormalities noted. Currently, Mr. De Santiago is awake. Other than pain in the ribcage area on the left side, he denies any headaches. No shortness of breath or cough. No back pain. He has abdominal pain in the same side of the rib fractures, so I think this is referred from the rib fractures towards the left upper quadrant. He does have dysuria, which is of new onset. He does recall melena as well or actually bright red blood per rectum and some hematuria as well. PAST MEDICAL HISTORY: Includes chronic hep C untreated with liver cirrhosis, portal hypertension, obstructive jaundice secondary to extrahepatic obstruction with unknown etiology following stay at [facility] in [place], where he had a biliary stent placed in January 2020. Now fever with absent evidence of sepsis associated with abdominal tenderness and rib fractures. Persistence of jaundice and abnormal liver function tests and a recently detected bacteremia due to E coli, which at that moment was ascribed to urinary tract infection. All: nkda FHX: non contributory Meds: Merrem, Vancomycin, prn meds, iv crystaloid Social hx: never smoker, disabled, no etoh hx PEx: Awake, oriented, no icterus. Spider angiomata ant chest. Periph iv access, no quezada cath No LN, eomi, mark, oral cavity with a few missing teeth, some periodontitis. Neck supple, no jvd thyroid wnl, chest with bilateral clear BS, S1S2, no S3, rrr, no murmurs. Soft abd, mild distension but no tenderness, no organomegaly or evidence of ascites. No bladder distension. Genital area wnl. No edema. Pulses 1 + DP/Pt/Popliteals. Some hyperpigmentation pretibial skin. Awake, alert, speech wnl recall wnl, oriented. Labs: wbc 9.4, Hb 9.8, Plt 155, INR 2.3, Na 131, creat 0.71, Bili 3.9, ast 60, alt 26, alkphosp 156, alb 1.7 crp 7.79, glob 4.6, ua with no leuk esterase, CSF wbc 6, glu 41, prot 51, sars cov2 neg imaging studies as discussed above. DISCUSSION: Differential diagnosis includes ascending cholangitis associated with malfunction of the stent. The stent has been there I believe since January or February and most likely due to lack of insurance, the patient has not had proper followup to manage this device. Also, the etiology for the extrahepatic obstruction is not clear yet and it is essential that we obtained information from [facility] as to the final diagnosis was a stone or another process. The alternate possibility that the patient had ascending urinary tract infection with pyelonephritis and bacteremia with a different organism that was not initially identified in the urinary culture that is less likely though. I believe the ascending cholangitis hypothesis is the more tenable one rather than invasive urinary tract infection. Oral third generation cephalosporins are less effective in more severe infections. The patient will likely require continuation of intravenous Rocephin to complete the treatment course. I do not think he will require protracted IV Rocephin and may be able to complete the entire treatment course here in the hospital for this admission. He is scheduled for repeat ERCP tomorrow probably for stent replacement. He is at risk for development of hepatic abscess. Job ID: [id number] [facility]
[2020-08-01] MEDS: Morphine 2 MG/ML VIAL SLOW IVP PRN (03:32)
[2020-08-01] MEDS: Sodium Chloride 0.9% 1,000 ML IV SCH ×4 (04:39→23:30)
[2020-08-01 04:40] LABS: #Eosinphils 0.1 thou/uL (0.0-0.7); #Lymphocytes 0.7 thou/uL (1.20-3.40); #Neutrophils 7.3 thou/uL (1.40-6.50); %Basophils 0.4 % (0.0-1.0); %Eosinophils 1.2 % (0.0-10.0); %Monocytes 10.6 % (0.0-10.0); %Neutrophils 79.9 % (42.0-75.0); Hemoglobin 9.6 g/dL (14.0-18.0); Mean Corpuscular HGB CONC 32.3 g/dL (32.0-36.0); Mean Corpuscular Hemoglobin 29.7 pg (27.0-31.0); Mean Platelet Volume 6.9 fL (7.4-10.4); Platelet Count 178 thou/uL (130-400); RBC Distribution Width 14.6 % (11.5-14.5); Red Blood Cell (RBC) Count 3.23 mill/uL (4.70-6.10); White Blood Cell (WBC) Count 9.1 thou/uL (4.8-10.8)
[2020-08-01 04:41] LABS: INR-International Normal Ratio 2.3; PTT 41.9 sec (22.9-36.1)
[2020-08-01 05:10] LABS: ALT (SGPT) 24 U/L (8-55); AST (SGOT) 56 U/L (5-34); Albumin 1.7 g/dL (3.5-5.0); Alkaline Phosphatase 148 U/L (40-110); Anion Gap 7 mmol/L (10-20); BUN (Urea Nitrogen) 13 mg/dL (8.4-25.7); Bilirubin, Direct 2.2 mg/dL (0.1-0.3); Bilirubin, Total 3.1 mg/dL (0.2-1.2); Calc. Creatinine Clearance 169 mL/min (70-130); Carbon Dioxide 20 mmol/L (22-29); Chloride 108 mmol/L (98-107); Estimated GFR-MDRD Greater than 90; Glucose 77 mg/dL (70-105); Magnesium 1.9 mg/dL (1.6-2.6); Phosphorus 1.5 mg/dL (2.3-4.7); Potassium 3.7 mmol/L (3.5-5.1); Protein, Total 6.1 g/dL (6.0-8.3); Sodium 131 mmol/L (136-145)
[2020-08-01] MEDS ORDERED: Potassium Phosphate 15 MMOL in Sodium Chloride 0.9% 250 ML 250 ML IVPB SCH (06:00)
[2020-08-01] MEDS ORDERED: Fentanyl 100 MCG/2 ML VIAL ONE ×3 (07:30→11:09)
[2020-08-01] MEDS ORDERED: Indomethacin 50 MG SUPP ONE ×2 (07:41→07:42)
[2020-08-01] MEDS ORDERED: Iothalamate Meglumine 60% 50 ML VIAL FS ONE (07:41)
[2020-08-01] MEDS ORDERED: Morphine 2 MG/ML VIAL ONE (07:43)
--- NOTE | 2020-08-01 08:19 | CON ---
DATE OF CONSULTATION: 07/31/2020 REASON FOR CONSULT: Sepsis, ascites, cirrhosis. CONSULTING PHYSICIAN: Dr. Kirby. HISTORY OF PRESENT ILLNESS: Mr. 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 He was seen by our GI Service on 01/23/2020, for elevated bilirubin in the range of 20 and abdominal pain. It was unclear if this was from decompensated cirrhosis or biliary obstruction, but he had dilated ducts on his CT and a possible pancreatic mass. Reviewing the records, it seems he was transferred to [place]. I have called the coke loader at [facility] in [place] and he gave me update on the patient's course that he had an ERCP there with removal of stones from his bile duct and no evidence of pancreatic or biliary mass or strictures, and ultimately had a stent placed, it was supposed to be removed 6 weeks later. The patient, however, never returned to have the stent removed. With regard to the question of pancreatic mass, no pancreatic obstruction was seen at [facility]. Since then, the patient was here in the emergency room on 06/27, complaining of black stool and his liver acting up. The patient was discharged home after that ER visit. He returned again on the after a fall, he was admitted from the to the , diagnosed with sepsis from a UTI. Apparently, he had blood cultures positive for E coli. He had urine cultures positive for Klebsiella. He was given pain medicine for rib pain because of his fall and rib trauma on the left and went home with Omnicef. He re-presented to the emergency room last night, temperature 99, stable vital signs. Apparently, he had been found unresponsive with a fall. Apparently, he did not take the antibiotics he had given after the last discharge. In the emergency room, he brought up the possibly of recent diagnosis of brain infection at another facility. Ultimately, he had a lumbar puncture, CT of the head, CT of the abdomen and pelvis, and pancultured, and admitted. At this time, blood cultures are pending. Urine cultures were negative at 12 hours. CSF cultures are pending. Labs are unremarkable except for bilirubin of 3.9, that had been 5.3 on 07/30, 2.2 on 07/22, and 20 on 01/24/2020 too. CSF showed protein of 50, glucose 41, minimal white blood cells. Reviewing the ER workup, despite admission for two falls recently, no alcohol or drug levels were obtained. Presently, the patient states he has left rib pain as his main complaint. Denies melena, hematochezia, or hematemesis. PAST MEDICAL HISTORY: 1. Cirrhosis, hepatitis C. 2. Prior alcohol abuse. He denies drinking now. 3. COPD. 4. Multiple head injuries in the past. 5. Anxiety and posttraumatic stress disorder. 6. Cholecystectomy. 7. ERCP with stent placement, plastic which remains in place. This was in January of this year. FAMILY HISTORY: Prior CVA. SOCIAL HISTORY: The patient apparently lives with family. Denies smoking, drinking for the past year, or drug use. ALLERGIES: ACETAMINOPHEN. MEDICATIONS: 1. Meropenem. 2. Morphine p.r.n. 3. Normal saline at 125. 4. Vancomycin. 5. . 6. Tramadol. 7. Lisinopril. 8. Lactulose. 9. Furosemide. 10. Fluoxetine. 11. Cefdinir, which he was not taking. PHYSICAL EXAMINATION: VITAL SIGNS: Temperature is 98, pulse 67, blood pressure 98/53. LUNGS: Clear. HEART: Regular rate and rhythm without clicks or murmurs. ABDOMEN: Soft. There is tenderness in the left side of the abdomen, which the closure you get to his ribs and he does not want to be touched. There is no rebound. There is no guarding. There is no shifting dullness or fluid wave. EXTREMITIES: Reveal no clubbing, cyanosis, or edema. SKIN: Notable for spider angioma on the chest, palmar erythema. There is no overt icterus that I can tell in the room here. NEUROLOGIC: He is alert and oriented to person, place, and time. LABORATORY DATA: As per HPI. INR was 1.7. Bilirubin 3.9, down from 5.3 on 07/30 and up from 4.1 on 06/26. AST 60, ALT 26, alkaline phosphatase 156. White count 9.4, hemoglobin 9.8, platelet count 155. IMAGING: Brain CT on 07/30, no intracranial abnormalities that are acute. Abdomen and pelvis CT on 07/30, acute left 7 through 10 posterior rib fractures, no pneumothorax, biliary stents in place with dilatation of the left-sided biliary system, lesser changes on the right. This is unchanged from previous exams. Mild ascites with fluid in the pelvis. On my review of the films, there is no tappable ascites. ASSESSMENT: 1. This is a gentleman who has falls in the past couple of weeks. He has broken some ribs on the left side. He has no pneumothorax. There is some tenderness there. It appears that his last admission was attributed to urosepsis, although he had blood cultures with Escherichia coli and urine cultures with Klebsiella. His last Klebsiella infection on 06/26, pansensitive. 2. Multiple falls. It is unclear if this is related to alcohol abuse, prior head trauma, infection. He does not appear to have had a recent stroke and he does not appear to have had a meningitis. He did have dilated ventricles and the radiologist brings up normal-pressure hydrocephalus as a concern. 3. The patient has an indwelling stent, it has been in his biliary tree since January and is likely occluded at this point in time. In talking with the doctors in [facility] in [place], they had done an ERCP and removed stones from his bile duct and sludge. They left the stent in as a precaution and it was to be removed in three months. This is overdue and is likely the cause for recurrent bacteremia. I suspect he is having intermittent bouts of low-grade cholangitis. Presently, there are no signs of sepsis. RECOMMENDATIONS: 1. Continue broad-spectrum antibiotics and anaerobic and gram-negative coverage. 2. ERCP tomorrow with removal of bile duct stent with no plans for placement unless there is evidence of obstruction. Dr. Canchola will perform this procedure in my absence. Job ID: [id number]
[2020-08-01] MEDS: MEROPENEM 1 GM/50 ML 1 GM in Premix Bag 1 BAG IVPB SCH ×2 (08:35→16:18)
[2020-08-01] MEDS ORDERED: Promethazine HCl 25 MG/ML VIAL SLOW IVP PRN (09:57)
[2020-08-01] MEDS ORDERED: Promethazine HCl 25 MG/ML VIAL IM PRN (09:57)
[2020-08-01] MEDS ORDERED: Ondansetron HCl/PF 4 MG/2 ML Vial IVP PRN (09:57)
[2020-08-01] MEDS ORDERED: HYDROmorphone 2 MG/ML VIAL SLOW IVP PRN (09:57)
[2020-08-01] MEDS ORDERED: PACU-Morphine 4MG/ML VIAL SLOW IVP PRN (09:57)
[2020-08-01 11:27] LABS: Vancomycin, Trough 15.3 ug/mL
[2020-08-01] MEDS: Vancomycin HCl 1.75 GM in Sodium Chloride 0.9% 500 ML IVPB SCH (12:34)
[2020-08-01] MEDS ORDERED: Rocuronium Bromide 10 MG/ML (10ML VIAL) ONE (12:44)
[2020-08-01] MEDS ORDERED: PHENYLEPHRINE-NS 100 MCG/ML 10 ML SYRINGE ONE (12:44)
[2020-08-01] MEDS ORDERED: Lidocaine 1% PF 5 ML VIAL ONE (12:44)
[2020-08-01] MEDS ORDERED: PROPOFOL 200 MG/20 ML VIAL ONE (12:44)
[2020-08-01] MEDS: traMADol HCl 50 MG TAB PO PRN ×2 (15:59→22:10)
--- NOTE | 2020-08-01 18:33 | PDOC.HOSPP ---
- Subjective Encounter Date: 08/01/20 Encounter Time: 12:30 Subjective: Patient seen and examined on for sepsis due to suspected ascending cholangitis. Underwent ERCP with stent removal earlier today. Some nausea without vomiting. Abdominal pain improving. - Objective Vital Signs & Weight: Vital Signs (12 hours) Temp Pulse Resp BP Pulse Ox 08/01/20 15:45 97.6 F 65 15 125/72 98 08/01/20 11:25 97.7 F 73 14 144/70 H 99 Weight Weight 214 lb 8 oz I&O: 07/31/20 08/01/20 08/02/20 06:59 06:59 06:59 Intake Total 730 2505 1320 Output Total 450 450 Balance 730 2055 870 Result Diagrams: 08/01/20 03:58 08/01/20 03:58 EKG Reviewed by me: Yes (Sinus rhythm on telemetry) Hospitalist ROS - Review of Systems Cardiovascular: denies: chest pain, palpitations, orthopnea, paroxysmal noc. dyspnea, edema, light headedness, other Gastrointestinal: denies: nausea, vomiting, abdominal pain, diarrhea, constipation, melena, hematochezia, other - Medication Medications: Active Medications Generic Name Dose Route Start Last Admin Trade Name Freq PRN Reason Stop Dose Admin Sodium Chloride 1,000 mls @ 50 mls/hr 08/01/20 12:35 08/01/20 14:08 Normal Saline 0.9% IV Not Given .Q20H WILL Tramadol HCl 50 mg 08/01/20 12:36 08/01/20 15:59 Tramadol Hcl 50 Mg Tab PO 50 mg Q6H PRN Administration Moderate Pain (4-6) - Exam General Appearance: NAD Neck: supple, no JVD Heart: RRR, no gallops, no rubs, normal peripheral pulses Respiratory: no wheezes, no rales, no ronchi, normal chest expansion Gastrointestinal: soft, non-distended, no guarding, no rigidity Gastrointestinal - other findings: Mild generalized tenderness Extremities: no cyanosis, no clubbing Neurological: no new deficit Psychiatric: normal affect, A&O x 3 Hosp A/P - Plan DVT proph w/SCDs #Syncopesuspected due to orthostatic hypotension. Normal rhythm on the telemetry monitoring for last 24 hours We will continue to monitor #Severe sepsis with toxic metabolic encephalopathyprobably due to ascending cholangitis. Biliary stent removed on 08/01. Patient was initially started on vancomycin with meropenem. Will switch antibiotic to ceftriaxone based on recent E. coli bacteremia sensitivities. Continue to monitor. #Chronic hepatitis C with cirrhosis with biliary stent. Patient also has coagulopathy, hypoalbuminemia, ascites with splenic varices. Continue to monitor. Add vitamin K due to worsening coagulopathy #Recent left second through 10th rib fracture from mechanical fall. Continue fall precautions #Hyponatremia/hypokalemia/hypomagnesemia Continue to monitor #Anxiety with posttraumatic stress disorder Patient denies any suicidal ideation #Chronic anemia probably due to nutritional deficiency Will monitor #COPD Continue PRN nebulizer treatments #DVT prophylaxis Will cont SCDs. #Discharge planningpatient will require 2-3 more days for stabilization. Will transfer to medical. #Other problems: Normal pressure hydrocephalus, renal cyst, history of hepatic encephalopathy in August 03,? Pancreatic mass, acetaminophen allergy
[2020-08-01] MEDS ORDERED: LACTULOSE 20 GM PO SCH (21:00)
[2020-08-01] MEDS: Multivitamin W/ Minerals 1 TAB PO SCH (21:19)
[2020-08-01] MEDS: Phytonadione 10 MG/ML AMP PO SCH (21:20)
[2020-08-01] MEDS: cefTRIAXone\\ROCEPHIN 2 GM in Sodium Chloride 0.9% 100 ML IVPB SCH (22:21)
[2020-08-02] MEDS: Sodium Chloride 0.9% 1,000 ML IV SCH (05:21)
[2020-08-02 06:30] LABS: #Eosinphils 0.2 thou/uL (0.0-0.7); #Lymphocytes 0.8 thou/uL (1.20-3.40); #Monocytes 0.8 thou/uL (0.11-0.59); #Neutrophils 5.4 thou/uL (1.40-6.50); %Basophils 0.6 % (0.0-1.0); %Lymphocytes 10.7 % (21.0-51.0); %Monocytes 11.1 % (0.0-10.0); %Neutrophils 74.6 % (42.0-75.0); Hemoglobin 10.1 g/dL (14.0-18.0); Mean Corpuscular HGB CONC 31.8 g/dL (32.0-36.0); Mean Corpuscular Hemoglobin 29.9 pg (27.0-31.0); Mean Corpuscular Volume 93.8 fL (78.0-98.0); Platelet Count 174 thou/uL (130-400); RBC Distribution Width 14.4 % (11.5-14.5); Red Blood Cell (RBC) Count 3.37 mill/uL (4.70-6.10); White Blood Cell (WBC) Count 7.2 thou/uL (4.8-10.8)
[2020-08-02 06:36] LABS: INR-International Normal Ratio 1.9; Prothrombin Time 22.3 sec (12.0-14.7)
[2020-08-02 06:37] LABS: PTT 36.6 sec (22.9-36.1)
[2020-08-02 07:02] LABS: ALT (SGPT) 26 U/L (8-55); AST (SGOT) 60 U/L (5-34); Albumin 1.8 g/dL (3.5-5.0); Alkaline Phosphatase 164 U/L (40-110); Anion Gap 9 mmol/L (10-20); BUN (Urea Nitrogen) 12 mg/dL (8.4-25.7); Bilirubin, Direct 1.9 mg/dL (0.1-0.3); Bilirubin, Total 2.5 mg/dL (0.2-1.2); Calc. Creatinine Clearance 180 mL/min (70-130); Calcium 7.2 mg/dL (7.8-10.44); Carbon Dioxide 20 mmol/L (22-29); Chloride 108 mmol/L (98-107); Estimated GFR-MDRD Greater than 90; Glucose 78 mg/dL (70-105); Magnesium 2.1 mg/dL (1.6-2.6); Potassium 3.7 mmol/L (3.5-5.1); Protein, Total 6.5 g/dL (6.0-8.3); Sodium 133 mmol/L (136-145)
[2020-08-02 07:15] LABS: Phosphorus 1.3 mg/dL (2.3-4.7)
--- NOTE | 2020-08-02 07:44 | OP ---
DATE OF PROCEDURE: 08/01/2020 PROCEDURE PERFORMED: Endoscopic retrograde cholangiopancreatography with removal of biliary stent. PREOPERATIVE DIAGNOSES: Abnormal LFTs, jaundice, sepsis. He has had an endoscopic retrograde cholangiopancreatography and papillotomy and stent placement in [facility] in January 2020. He also has some common bile duct stones removed. POSTOPERATIVE DIAGNOSES: 1. Removal of common bile duct stent without difficulty using the gastroscope. 2. Cannulation achieved into the bile duct via papillotome while injection showed no definite filling defects and the duct appeared dilated. However, I was unable to see the bile duct with a balloon. This was due to technical difficulty. DESCRIPTION OF PROCEDURE: The patient was intubated and was given sedation by Anesthesia Department. The patient was transferred to the fluoroscopy table. A bite block was placed. A Pentax video duodenoscope under direct vision passed down the oropharynx past the GE junction into the stomach and subsequently descending duodenum. The stent had actually migrated down into the duodenal lumen. It was very difficult really to get access to the stent. I could not use a short route to reach the papilla. A long route was used to reach the descending duodenum. Because of the above reason, the attempt at removal of the stent with snare was not successful. The duodenoscope was removed. The patient was rescoped again with the forward viewing gastroscope and the scope advanced into descending duodenum. A snare was used to remove this stent without difficulty. Subsequently, another attempt to pass a duodenoscope into descending duodenum, although, it would get into descending duodenum. The papilla actually all this comes around 10 o'clock or 9 o'clock position, which was very difficult to cannulate. Although I was able to get access to it by using long route, attempt to cannulate with a balloon was not successful. The procedure was tried almost 1 hour and thirty minutes. RECOMMENDATION: 1. Follow up LFTs. 2. _May consider repeat ERCP , if the liver functions remain elevated_. Job ID: [id number] [facility]
[2020-08-02] MEDS: FLUoxetine HCl 20 MG CAP PO SCH (07:57)
[2020-08-02] MEDS ORDERED: Potassium Phosphate 30 MMOL in Sodium Chloride 0.9% 250 ML 250 ML IVPB SCH (08:15)
[2020-08-02] MEDS ORDERED: FLUoxetine HCl 10 MG CAP PO SCH (09:00)
[2020-08-02] MEDS: traMADol HCl 50 MG TAB PO PRN (09:21)
--- NOTE | 2020-08-02 12:21 | CT ---
HEAD CT WITHOUT CONTRAST: HISTORY: Fall. Pain. COMPARISON: 07/19/2020. FINDINGS: Hemorrhage: No parenchymal hemorrhage. Subtle hyperdensities involving the right frontal and temporal sulci, compatible with subarachnoid hemorrhage. Brain parenchyma: Cortical stanford-white matter differentiation is preserved. No mass effect or midline shift. Basilar cisterns are patent.Persistent dilatation of the ventricular system. Third ventricle is dilated. The sylvian aqueduct and 4th ventricle do not appear to be dilated. The possibility of ob structing hydrocephalus with transependymal flow of CSF is raised. Ventricular system: As above. Calvarium: Intact. Sinuses and mastoid air cells: Adequate aeration. IMPRESSION: 1. Posttraumatic subarachnoid hemorrhage. 2. Dilatation of the ventricular system, worrisome for an obstructing hydrocephalus. Results of the study conveyed to Dr. Whittington 08/02/2020 at 12:16 PM Code CR Transcribed Date/Time: 08/02/2020 12:28 PM
[2020-08-02] MEDS ORDERED: traMADol HCl 50 MG TAB PO SCH (17:00)
--- NOTE | 2020-08-02 17:39 | PDOC.HOSPP ---
- Subjective Encounter Date: 08/02/20 Encounter Time: 11:00 Subjective: Patient seen and examined for sepsis. Had a mechanical fall this morning. Had some dizziness prior to the fall. Denies any loss of consciousness. CT scan of the brain was consistent with small subarachnoid bleed. - Objective Vital Signs & Weight: Vital Signs (12 hours) Temp Pulse Resp BP BP BP Pulse Ox 08/02/20 16:02 98.2 F 80 18 122/76 99 08/02/20 15:17 98.0 F 80 18 119/73 98 08/02/20 11:32 97.9 F 77 18 120/72 97 08/02/20 08:00 97.9 F 76 18 157/90 H 134/83 153/99 H 98 08/02/20 07:08 97.9 F 74 18 118/72 97 Weight Weight 214 lb 8 oz I&O: 08/01/20 08/02/20 08/03/20 06:59 06:59 06:59 Intake Total 2505 2590 Output Total 450 450 300 Balance 2055 2140 -300 Result Diagrams: 08/02/20 05:50 08/02/20 05:50 Additional Labs: Abnormal Lab Results - Last 48 hrs 08/01/20 03:58: Sodium 131 L, Chloride 108 H, Carbon Dioxide 20 L, Anion Gap 7 L, Creatinine 0.67 L, Calcium 7.0 L, Phosphorus 1.5 L, Total Bilirubin 3.1 H, Direct Bilirubin 2.2 H, AST 56 H, Alkaline Phosphatase 148 H, Albumin 1.7 L 08/01/20 03:58: RBC 3.23 L, Hgb 9.6 L, Hct 29.7 L, RDW 14.6 H, MPV 6.9 L, Neutrophils % 79.9 H, Lymphocytes % 8.0 L, Monocytes % 10.6 H, Neutrophils # 7.3 H, Lymphocytes # 0.7 L, Monocytes # 1.0 H 08/01/20 03:58: PT 26.0 H, APTT 41.9 H 08/02/20 05:50: Sodium 133 L, Chloride 108 H, Carbon Dioxide 20 L, Anion Gap 9 L, Creatinine 0.63 L, Calcium 7.2 L, Phosphorus 1.3 L, Total Bilirubin 2.5 H, Direct Bilirubin 1.9 H, AST 60 H, Alkaline Phosphatase 164 H, Albumin 1.8 L 08/02/20 05:50: RBC 3.37 L, Hgb 10.1 L, Hct 31.6 L, MCHC 31.8 L, MPV 7.0 L, Lymphocytes % 10.7 L, Monocytes % 11.1 H, Lymphocytes # 0.8 L, Monocytes # 0.8 H 08/02/20 05:50: PT 22.3 H, APTT 36.6 H Microbiology - Entire Visit 07/30/20 18:51 Lumbar - Pending Body Fluid Culture - Preliminary 07/30/20 17:18 Venous blood - Left Hand Blood Culture - Preliminary NO GROWTH AT 48 HOURS 07/30/20 17:21 Venous blood - Left Hand Blood Culture - Preliminary NO GROWTH AT 48 HOURS 07/30/20 21:44 Urine voided Urine Culture - Final NO GROWTH AT 36 HOURS Radiology Reviewed by me: Yes (CT brainsmall subarachnoid bleed) Hospitalist ROS - Review of Systems Cardiovascular: denies: chest pain, palpitations, orthopnea, paroxysmal noc. dys pnea, edema, light headedness, other Gastrointestinal: denies: nausea, vomiting, abdominal pain, diarrhea, constipation, melena, hematochezia, other Neurological: denies: weakness, numbness, incoordination, change in speech, confusion, seizures, other - Medication Medications: Active Medications Generic Name Dose Route Start Last Admin Trade Name Freq PRN Reason Stop Dose Admin Fluoxetine HCl 20 mg 08/02/20 09:00 08/02/20 07:57 Fluoxetine Hcl 20 Mg Cap PO 20 mg DAILY WILL Administration Sodium Chloride 1,000 mls @ 50 mls/hr 08/01/20 12:35 08/02/20 05:21 Normal Saline 0.9% IV Not Given .Q20H WILL Ceftriaxone Sodium 2 gm/ 100 mls @ 200 mls/hr 08/01/20 23:00 08/01/20 22:21 Sodium Chloride IVPB 100 mls 2300 WILL Administration Iron/Minerals/Multivitamins 1 tab 08/01/20 21:00 08/01/20 21:19 Multivitamin W/ Minerals 1 Tab PO 1 tab HS WILL Administration Lactulose 20 gm 08/01/20 21:00 08/02/20 07:57 Lactulose 20 Gm/30 Ml Udcup PO 20 gm BID WILL Administration Phytonadione 5 mg 08/01/20 21:00 08/01/20 21:20 Phytonadione 10 Mg/Ml Amp PO 5 mg HS WILL Administration - Exam General Appearance: ill appearing Neck: supple, no JVD Heart: RRR, no gallops, no rubs, normal peripheral pulses Respiratory: CTAB, no rales, no ronchi, normal chest expansion Gastrointestinal: non-tender, non-distended, normal bowel sounds, no palpable masses Extremities: no cyanosis, no clubbing, no edema, 1+ LE edema Neurological: cranial nerve grossly intact, normal sensation to touch, no weakness, no new deficit Musculoskeletal: normal tone Psychiatric: normal affect, A&O x 3 Hosp A/P - Plan DVT proph w/SCDs #Syncopesuspected due to orthostatic hypotension. Normal rhythm on the telemetry monitoring for last 24 hours #Severe sepsis with toxic metabolic encephalopathyprobably due to ascending cholangitis. Biliary stent removed on 08/01. Patient was initially started on vancomycin with meropenem -now on ceftriaxone #Chronic hepatitis C with cirrhosis with biliary stent. Patient also has coagulopathy, hypoalbuminemia, ascites with splenic varices. #Recent left second through 10th rib fracture from mechanical fall. #Hyponatremia/hypokalemia/hypomagnesemia/hypophosphatemia #Anxiety with posttraumatic stress disorder #Chronic anemia probably due to nutritional deficiency #COPD #Other problems: Normal pressure hydrocephalus, renal cyst, history of hepatic encephalopathy in August 03,? Pancreatic mass, acetaminophen allergy Plan: CT scan of the brain consistent with small subarachnoid hemorrhage. I discussed with neurosurgery who recommended conservative management. There is no need to transfer the patient to stroke unit or ICU per neurosurgery. Will repeat CT brain in a.m. Will replace electrolytes. Continue ceftriaxone for ascending cholangitis. Physical therapy evaluation. Continue other medications as above. Fall precaution was emphasized. There was no loss of consciousness reported today
[2020-08-02] MEDS: Phytonadione 10 MG/ML AMP PO SCH (20:12)
[2020-08-02] MEDS: Multivitamin W/ Minerals 1 TAB PO SCH (20:12)
[2020-08-02] MEDS: cefTRIAXone\\ROCEPHIN 2 GM in Sodium Chloride 0.9% 100 ML IVPB SCH (23:59)
[2020-08-03 05:01] LABS: #Eosinphils 0.2 thou/uL (0.0-0.7); #Lymphocytes 1.1 thou/uL (1.20-3.40); #Monocytes 0.9 thou/uL (0.11-0.59); #Neutrophils 4.5 thou/uL (1.40-6.50); %Basophils 0.7 % (0.0-1.0); %Eosinophils 2.7 % (0.0-10.0); %Lymphocytes 16.3 % (21.0-51.0); %Monocytes 13.7 % (0.0-10.0); %Neutrophils 66.6 % (42.0-75.0); Mean Corpuscular HGB CONC 31.3 g/dL (32.0-36.0); Mean Corpuscular Hemoglobin 29.2 pg (27.0-31.0); Mean Corpuscular Volume 93.2 fL (78.0-98.0); Platelet Count 206 thou/uL (130-400); RBC Distribution Width 14.6 % (11.5-14.5); Red Blood Cell (RBC) Count 3.44 mill/uL (4.70-6.10); White Blood Cell (WBC) Count 6.8 thou/uL (4.8-10.8)
[2020-08-03 05:02] LABS: INR-International Normal Ratio 1.9; PTT 38.7 sec (22.9-36.1); Prothrombin Time 21.9 sec (12.0-14.7)
[2020-08-03 05:28] LABS: ALT (SGPT) 23 U/L (8-55); AST (SGOT) 61 U/L (5-34); Albumin 1.7 g/dL (3.5-5.0); Alkaline Phosphatase 172 U/L (40-110); Anion Gap 7 mmol/L (10-20); BUN (Urea Nitrogen) 8 mg/dL (8.4-25.7); Bilirubin, Direct 1.8 mg/dL (0.1-0.3); Bilirubin, Total 2.5 mg/dL (0.2-1.2); Calc. Creatinine Clearance 206 mL/min (70-130); Calcium 7.1 mg/dL (7.8-10.44); Carbon Dioxide 22 mmol/L (22-29); Chloride 110 mmol/L (98-107); Estimated GFR-MDRD Greater than 90; Glucose 80 mg/dL (70-105); Magnesium 1.9 mg/dL (1.6-2.6); Phosphorus 1.6 mg/dL (2.3-4.7); Potassium 3.5 mmol/L (3.5-5.1); Protein, Total 6.2 g/dL (6.0-8.3); Sodium 135 mmol/L (136-145)
[2020-08-03] MEDS: Sodium Chloride 0.9% 1,000 ML IV SCH (06:03)
[2020-08-03] MEDS ORDERED: Potassium Phosphate 30 MMOL in Sodium Chloride 0.9% 250 ML 250 ML IVPB SCH (06:30)
--- NOTE | 2020-08-03 06:52 | PRG ---
DATE OF SERVICE: 08/02/2020 HISTORY: This is a 55-year-old male with ERCP with stent placement few months ago in [place]. The patient has liver cirrhosis. He has had positive blood culture, one specimen showing E coli, another one Klebsiella. The patient's liver function tests are elevated. We did perform ERCP with no stent yesterday. A cholangiogram was obtained, but I could not really pass the balloon to see the bile duct. He had a fall in the room today and had a CAT scan of the head. This was done this morning. PHYSICAL EXAMINATION: GENERAL: He is awake, alert, communicative. He is afebrile. VITAL SIGNS: Pulse is 77, blood pressure 120/72. HEENT: He is icteric. CARDIOVASCULAR SYSTEM: Normal heart sounds. LUNGS: Clear to auscultation. ABDOMEN: Soft to palpate. He is mildly tender over the upper abdomen. No rebound or guarding. LABORATORY DATA: The lab data from today, [facility] are normal. BUN is 12. Liver function tests; bilirubin is down to 2.5, AST 60, ALT 26, alkaline phosphatase is 164, albumin 1.8. IMAGING: The CT scan of the head reported as posttraumatic subarachnoid hemorrhage, dilatation of the ventricular system, possible hydrocephalus. PLAN: Follow up LFTs. May need surgical input because of abnormal CAT scan findings. Job ID: [id number]
--- NOTE | 2020-08-03 07:34 | PDOC.HOSPP ---
- Subjective Encounter Date: 08/03/20 Encounter Time: 07:30 Subjective: mild MCCRARY, no fever, ckills - Objective Vital Signs & Weight: Vital Signs (12 hours) Temp Pulse Resp BP Pulse Ox 08/03/20 07:15 98.0 F 76 20 132/77 96 08/03/20 04:00 98.1 F 66 18 119/73 97 08/02/20 20:00 98.6 F 81 18 130/81 97 Weight Weight 214 lb 8 oz I&O: 08/02/20 08/03/20 08/04/20 06:59 06:59 06:59 Intake Total 2590 1100 Output Total 450 300 Balance 2140 800 Result Diagrams: 08/03/20 04:16 08/03/20 04:16 Hospitalist ROS - Medication Medications: Active Medications Generic Name Dose Route Start Last Admin Trade Name Freq PRN Reason Stop Dose Admin Fluoxetine HCl 20 mg 08/02/20 09:00 08/02/20 07:57 Fluoxetine Hcl 20 Mg Cap PO 20 mg DAILY WILL Administration Sodium Chloride 1,000 mls @ 50 mls/hr 08/01/20 12:35 08/03/20 06:03 Normal Saline 0.9% IV 1,000 mls .Q20H WILL Administration Ceftriaxone Sodium 2 gm/ 100 mls @ 200 mls/hr 08/01/20 23:00 08/02/20 23:59 Sodium Chloride IVPB 100 mls 2300 WILL Administration Potassium Phosphate 30 mmol/ 260 mls @ 41.7 mls/hr 08/03/20 06:30 08/03/20 06:18 Sodium Chloride IVPB 08/03/20 12:45 260 mls NOW WILL Administration Iron/Minerals/Multivitamins 1 tab 08/01/20 21:00 08/02/20 20:12 Multivitamin W/ Minerals 1 Tab PO 1 tab HS WILL Administration Lactulose 20 gm 08/01/20 21:00 08/02/20 20:11 Lactulose 20 Gm/30 Ml Udcup PO 20 gm BID WILL Administration Phytonadione 5 mg 08/01/20 21:00 08/02/20 20:12 Phytonadione 10 Mg/Ml Amp PO 5 mg HS WILL Administration - Exam General Appearance: awake alert Neck: no JVD Heart: RRR, no murmur Respiratory: CTAB Gastrointestinal: soft, normal bowel sounds Gastrointestinal - other findings: mild generalized tenderness Extremities: no edema Hosp A/P (1) Acute cholangitis Code(s): K83.09 - OTHER CHOLANGITIS Status: Acute (2) Hep C w/o coma, chronic Code(s): B18.2 - CHRONIC VIRAL HEPATITIS C Status: Chronic (3) Coagulopathy Status: Chronic (4) SAH (subarachnoid hemorrhage) Code(s): I60.9 - NONTRAUMATIC SUBARACHNOID HEMORRHAGE, UNSPECIFIED Status: Acute (5) Sepsis with metabolic encephalopathy Code(s): A41.9 - SEPSIS, UNSPECIFIED ORGANISM; R65.20 - SEVERE SEPSIS WITHOUT SEPTIC SHOCK; G93.41 - METABOLIC ENCEPHALOPATHY Status: Acute (6) Hepatic cirrhosis Code(s): K74.60 - UNSPECIFIED CIRRHOSIS OF LIVER Status: Chronic Qualifiers: Ascites presence: unspecified - Plan cont iv antibx monitor SAH with serial CT dicuss with GI, NS
[2020-08-03] MEDS: FLUoxetine HCl 20 MG CAP PO SCH (07:51)
--- NOTE | 2020-08-03 09:34 | CT ---
CT HEAD WITHOUT CONTRAST: Date: 08/03/2020 HISTORY: Follow up hemorrhage Comparison made to yesterday's CT scan on 08/02/2020 and also compared to CT scan of 07/30/2020. Yest erday's exam showed subtle subarachnoid hemorrhage in the right frontal lobe sulci. FINDINGS: The subarachnoid blood seen in the right frontal lobe sulci yesterday is not apparent today. No defin ite evidence of subarachnoid blood today. There is no other hemorrhage seen. The ventriculomegaly involving the lateral ventricles and third ventricle again noted suggesting obst ructive hydrocephalus. This is a stable finding. IMPRESSION: 1. The subtle subarachnoid blood in the right frontal lobe sulci noted yesterday is no longer appare nt. 2. Hydrocephalus again noted, unchanged in appearance. POS: AH
--- NOTE | 2020-08-03 16:49 | CON ---
PROGRESS NOTE: 08/03/2020 HISTORY OF PRESENT ILLNESS: Mr. De Santiago had an ERCP by Dr. Canchola and the operative procedure was reviewed and the Pentax video duodenoscope was passed down to the oropharynx past the GE junction and the descending duodenum. The stent had migrated down into the duodenal lumen, so the attempted removal of the stent was not successful. The duodenoscope was removed and the patient was re-scoped again with the forward viewing and scope advanced into the descending duodenum. At this time, a snare was used to remove the stent without difficulty and he could not do a papillotomy because of some technical issues. Right now, the pain is improved and still has some pain in the left upper quadrant. No respiratory symptoms. No chest pain. No genitourinary symptoms. No diarrhea. PHYSICAL EXAMINATION: VITAL SIGNS: He has been afebrile since admission. Blood pressure 120/60, heart rate 76, respiratory rate 20, O2 saturation 96%. GENERAL: Does not appear in distress. During the exam, he had an episode of cramp sensation. LUNGS: Clear. HEART: S1 and S2, regular rate. ABDOMEN: Soft. Mild tenderness. No bladder distention. NEURO: Nonfocal. LABORATORY DATA: Sodium 135, creatinine 0.55. Phosphorus 1.6. Bilirubin is down from 3.9 to 2.5 and direct bilirubin down from 2.2 to 1.8. AST stable at 61, ALT normal, alkaline phosphatase is at 172, which is stable. Microbiology has Klebsiella pneumoniae in the urine, which is probably unrelated to the clinical presentation and E coli in the blood culture, which is resistant to quinolones and susceptible to Rocephin and he has been receiving it for the past 4 days. IMAGING STUDIES: The abdomen and pelvis CT on admission with marked dilatation of the left-sided biliary ductal system, splenic varices. ASSESSMENT AND DISCUSSION: Chronic hepatitis C, untreated with liver cirrhosis; portal hypertension; obstructive jaundice for unknown reasons with recent evaluation at [facility] in [place] with placement of a stent, which has remained in place until now. The patient is readmitted with cholangitis. The stent has been removed. Dr. Holliday was able to speak with the GI specialist, who took care of the patient in [place], and there, he had ERCP with removal of stones from the bile duct. No evidence of pancreatic or biliary mass or strictures. He was supposed to have the stent removed 6 weeks later, but the patient never returned to have it removed, so it looks like now things should continue to improve; however, he does have liver cirrhosis and needs to be treated for chronic hep C as soon as possible, and therefore, there are 2 components to his abnormal liver function tests one in the residual stent from the prior ERCP and in [place] and then the chronic liver disease with cirrhosis. In terms of treatment, I think that another 2 days of Rocephin can be transitioned to oral Vantin for another week approximately. After that, follow up liver function tests and then treatment for his chronic hepatitis C in the outpatient setting. Job ID: [id number] MTDD
--- NOTE | 2020-08-03 17:40 | PRG ---
DATE OF SERVICE: 08/03/2020 SUBJECTIVE: Mr. De Santiago has some pain in his abdomen and also pain with his ribs after having fallen. He did have a fall over the weekend and had a subdural hematoma as well. PHYSICAL EXAMINATION: VITAL SIGNS: Temperature 97.7, pulse 73, and blood pressure 128/84. GENERAL: He is in no acute distress. He is awake and alert. HEENT: His eyes have mild scleral icterus. LUNGS: Clear to auscultation bilaterally. HEART: Regular rate and rhythm without murmur. ABDOMEN: Soft, tender in the right upper quadrant without guarding. Bowel sounds are present. EXTREMITIES: No lower extremity edema. LABORATORY DATA: Creatinine 0.55, bilirubin 2.5, AST 61, ALT 23, alkaline phosphatase 172. INR 1.9. White blood cell count 6.8, hemoglobin 10.0, and platelets 206. IMPRESSION: 1. Cholangitis secondary to retained biliary stent, status post endoscopic retrograde cholangiopancreatography by Dr. Santa on 08/02/2020 with removal of the biliary foreign body. Cholangiogram was clear. The duct could not be swept with the balloon again at that time. 2. Cirrhosis and history of chronic hepatitis C, which has been untreated. He appears decompensated with elevated INR and elevated bilirubin and hypoalbuminemia. His bilirubin is improved significantly after removal of the stent and treatment with antibiotics. However, it might not normalize depending on what his underlying baseline liver function is. RECOMMENDATIONS: 1. Continue ceftriaxone. 2. Continue to follow the trend of his liver tests. Job ID: [id number]
[2020-08-03] MEDS: Phytonadione 10 MG/ML AMP PO SCH (21:01)
[2020-08-03] MEDS: Multivitamin W/ Minerals 1 TAB PO SCH (21:01)
[2020-08-03] MEDS: cefTRIAXone\\ROCEPHIN 2 GM in Sodium Chloride 0.9% 100 ML IVPB SCH (23:27)
[2020-08-04 06:22] LABS: ALT (SGPT) 26 U/L (8-55); AST (SGOT) 68 U/L (5-34); Albumin 1.5 g/dL (3.5-5.0); Alkaline Phosphatase 180 U/L (40-110); Anion Gap 8 mmol/L (10-20); BUN (Urea Nitrogen) 8 mg/dL (8.4-25.7); Bilirubin, Total 2.9 mg/dL (0.2-1.2); Calc. Creatinine Clearance 199 mL/min (70-130); Calcium 7.3 mg/dL (7.8-10.44); Carbon Dioxide 21 mmol/L (22-29); Chloride 110 mmol/L (98-107); Estimated GFR-MDRD Greater than 90; Globulin 4.7 g/dL (2.4-3.5); Glucose 85 mg/dL (70-105); Potassium 3.3 mmol/L (3.5-5.1); Protein, Total 6.2 g/dL (6.0-8.3); Sodium 136 mmol/L (136-145)
[2020-08-04 06:30] LABS: Band 7 % (5-11); Eosinophils 6 % (0-10); Hemoglobin 10.1 g/dL (14.0-18.0); Lymphocytes 21 % (21-51); MDiff Complete? YES; Mean Corpuscular HGB CONC 32.4 g/dL (32.0-36.0); Mean Corpuscular Hemoglobin 29.8 pg (27.0-31.0); Mean Corpuscular Volume 92.1 fL (78.0-98.0); Mean Platelet Volume 6.6 fL (7.4-10.4); Monocytes 9 % (0-10); Neutrophil 57 % (42-75); Platelet Count 210 thou/uL (130-400); Platelet Morphology Comment Appears Adequate; RBC Distribution Width 14.7 % (11.5-14.5); Red Blood Cell (RBC) Count 3.39 mill/uL (4.70-6.10); White Blood Cell (WBC) Count 4.6 thou/uL (4.8-10.8)
[2020-08-04] MEDS: Sodium Chloride 0.9% 1,000 ML IV SCH ×2 (07:02→19:11)
[2020-08-04] MEDS: FLUoxetine HCl 20 MG CAP PO SCH (08:51)
--- NOTE | 2020-08-04 11:34 | PDOC.HOSPP ---
- Subjective Encounter Date: 08/04/20 Encounter Time: 11:28 Subjective: alert, no complaints - Objective Vital Signs & Weight: Vital Signs (12 hours) Temp Pulse Resp BP BP Pulse Ox 08/04/20 08:00 98 08/04/20 07:51 144/81 H 08/04/20 07:47 97.9 F 76 18 08/04/20 04:00 98.4 F 76 16 124/78 98 08/04/20 00:00 98.0 F 69 18 134/84 98 Weight Weight 214 lb 8 oz I&O: 08/03/20 08/04/20 08/05/20 06:59 06:59 06:59 Intake Total 1100 1320 240 Output Total 300 600 Balance 800 720 240 Result Diagrams: 08/04/20 05:21 08/04/20 05:21 Hospitalist ROS - Medication Medications: Active Medications Generic Name Dose Route Start Last Admin Trade Name Freq PRN Reason Stop Dose Admin Fluoxetine HCl 20 mg 08/02/20 09:00 08/04/20 08:51 Fluoxetine Hcl 20 Mg Cap PO 20 mg DAILY WILL Administration Sodium Chloride 1,000 mls @ 50 mls/hr 08/01/20 12:35 08/04/20 07:02 Normal Saline 0.9% IV Not Given .Q20H WILL Ceftriaxone Sodium 2 gm/ 100 mls @ 200 mls/hr 08/01/20 23:00 08/03/20 23:27 Sodium Chloride IVPB 100 mls 2300 WILL Administration Iron/Minerals/Multivitamins 1 tab 08/01/20 21:00 08/03/20 21:01 Multivitamin W/ Minerals 1 Tab PO 1 tab HS WILL Administration Lactulose 20 gm 08/01/20 21:00 08/04/20 08:51 Lactulose 20 Gm/30 Ml Udcup PO 20 gm BID WILL Administration Phytonadione 5 mg 08/01/20 21:00 08/03/20 21:01 Phytonadione 10 Mg/Ml Amp PO 5 mg HS WILL Administration - Exam General Appearance: awake alert Neck: no JVD Heart: RRR, no murmur Respiratory: CTAB Gastrointestinal: soft, non-distended, normal bowel sounds Extremities: no edema Hosp A/P (1) Acute cholangitis Code(s): K83.09 - OTHER CHOLANGITIS Status: Acute (2) Hep C w/o coma, chronic Code(s): B18.2 - CHRONIC VIRAL HEPATITIS C Status: Chronic (3) Coagulopathy Status: Chronic (4) SAH (subarachnoid hemorrhage) Code(s): I60.9 - NONTRAUMATIC SUBARACHNOID HEMORRHAGE, UNSPECIFIED Status: Acute (5) Sepsis with metabolic encephalopathy Code(s): A41.9 - SEPSIS, UNSPECIFIED ORGANISM; R65.20 - SEVERE SEPSIS WITHOUT SEPTIC SHOCK; G93.41 - METABOLIC ENCEPHALOPATHY Status: Acute (6) Hepatic cirrhosis Code(s): K74.60 - UNSPECIFIED CIRRHOSIS OF LIVER Status: Chronic Qualifiers: Ascites presence: unspecified - Plan cont iv antibx x 24hrs, then transition to po CT 08/03 reveals resolution of SDH dicuss with GI, NS
--- NOTE | 2020-08-04 17:39 | PRG ---
DATE OF SERVICE: 08/04/2020 SUBJECTIVE: Mr. De Santiago is tolerating his diet and having normal bowel movements. He has been afebrile with normal white count. He does complain of some ongoing generalized abdominal soreness, but no nausea or vomiting. OBJECTIVE: VITAL SIGNS: Temperature 97.9, pulse 76, blood pressure 144/81, 98% oxygen saturation on room air. GENERAL: No acute distress, resting comfortably. HEART: Regular rate and rhythm. LUNGS: Clear to auscultation bilaterally. ABDOMEN: Mild distention, but soft. Bowel sounds present. Mild tenderness to palpation throughout, but no guarding or rebound tenderness. EXTREMITIES: No peripheral edema. LABORATORY STUDIES: WBC down to 4.6, hemoglobin 10.1, and platelets 210. INR 1.9. Sodium 136, potassium 3.3, BUN 8, creatinine 0.57, total bilirubin 2.9, alkaline phosphatase 180, AST 68, ALT 26. LFTs are all essentially stable. Albumin 1.5. ASSESSMENT AND PLAN: 1. Cholangitis secondary to retained biliary stent, status post endoscopic retrograde cholangiopancreatography with Dr. Canchola on 08/02/2020 with removal of the biliary foreign body, cholangiogram was clear following stent removal. LFTs have declined since presentation. The patient is afebrile with normal white count. Continuing antibiotics one more day, ceftriaxone. 2. Cirrhosis with history of hepatitis C, chronically untreated. He does appear decompensated with elevated INR and bilirubin. His LFTs will probably not completely normalize. He would benefit from followup in the GI Clinic with Dr. Pete after discharge. 3. Fall with subdural hematoma. This has resolved as per repeat CT scan. Please call anytime with questions or concerns. Job ID: [id number]
[2020-08-04] MEDS: Multivitamin W/ Minerals 1 TAB PO SCH (20:27)
[2020-08-04] MEDS: Phytonadione 10 MG/ML AMP PO SCH (20:27)
[2020-08-04] MEDS: cefTRIAXone\\ROCEPHIN 2 GM in Sodium Chloride 0.9% 100 ML IVPB SCH (23:08)
[2020-08-05] MEDS: FLUoxetine HCl 20 MG CAP PO SCH (09:28)
[2020-08-05] MEDS: Furosemide 20 MG TAB PO SCH (09:28)
--- NOTE | 2020-08-05 10:12 | DIS ---
DATE OF ADMISSION: 07/30/2020 DATE OF DISCHARGE: 08/05/2020 PRIMARY CARE PROVIDER: [employer]. DISPOSITION: Discharged home. FINAL DIAGNOSES: Acute cholangitis, hepatitis C with cirrhosis and coagulopathy, sepsis due to gram-negative urinary tract infection, syncope, and subarachnoid hemorrhage secondary to fall, resolved. DISCHARGE MEDICATIONS: 1. Vantin 200 mg p.o. q.12 hours x7 days. 2. Lisinopril 5 mg a day. 3. Fluoxetine 20 mg a day. 4. Lasix 20 mg a day. 5. Lactulose 20 mg p.o. b.i.d. ALLERGIES: TYLENOL. DIET: No added salt. CODE STATUS: Full. PENDING AT TIME OF DISCHARGE: Nothing. CONSULTATIONS: 1. Gastroenterological by Dr. Gerber Holliday. 2. Neurology by Dr. Migdalia Booth. 3. Neurosurgery by Dr. Enrrique Black. 4. Infectious Disease by Dr. Jose Sanford. PROCEDURES DONE: On 08/02/2020, esophagogastroduodenoscopy with removal of biliary stent by Dr. Ghulam Canchola. HOSPITAL COURSE: The patient was admitted to the hospital after being seen in the emergency room. He was brought to emergency room with transient loss of consciousness. He had been hospitalized here two weeks before with treatment of urosepsis, discharged on Omnicef, did not take the medicines. His initial diagnosis was sepsis with metabolic encephalopathy, fall, rib fracture, syncope, hepatic cirrhosis, and normal-pressure hydrocephalus. The patient was put on IV antibiotics. Blood and urine cultures and fluid cultures including lumbar puncture were nonrevealing. Initial laboratory revealed a hemoglobin 12.8, white count of 10.8 with a mild left shift. His INR ranged from 1.7 to 2.3. His initial electrolytes revealed a CO2 of 19. Lactic acid was only 2. His carbon dioxide came up to 21 to 22. His initial bilirubin was 3.9, which had dropped to 2.5 to 2.9 at the time of discharge. The patient was treated with IV Rocephin during his hospital stay at the recommendation of Dr. Sanford, Infectious Disease. He is being discharged on seven days of Vantin, follow up in 3 to 7 days with PCP. He will need [id number] with Gastroenterology either here or in [place] for treatment of his untreated hepatitis C, which is led to cirrhosis. He will also need a repeat CAT scan of the brain in about four weeks. His prognosis is really mostly limited by his lack of compliance with medical care related to his antibiotics last visit and his untreated hep C. if he fails to get that treated, he will proceed to a worse case of hepatic failure. This has been discussed with the patient. Job ID: [id number]
--- NOTE | 2020-08-05 14:06 | PDOC.HOSPP ---
- Subjective Encounter Date: 08/05/20 Encounter Time: 14:04 Subjective: alert, no complaints - Objective Vital Signs & Weight: Vital Signs (12 hours) Temp Pulse Resp BP BP BP Pulse Ox 08/05/20 11:04 98.1 F 74 12 142/83 H 95 08/05/20 10:17 155/89 H 133/67 08/05/20 08:00 98 08/05/20 07:26 99.0 F 69 18 157/78 H 98 Weight Weight 214 lb 8 oz I&O: 08/04/20 08/05/20 08/06/20 06:59 06:59 06:59 Intake Total 1320 1420 Output Total 600 300 Balance 720 1120 Result Diagrams: 08/04/20 05:21 08/04/20 05:21 Hospitalist ROS - Medication Medications: Active Medications Generic Name Dose Route Start Last Admin Trade Name Freq PRN Reason Stop Dose Admin Fluoxetine HCl 20 mg 08/02/20 09:00 08/05/20 09:28 Fluoxetine Hcl 20 Mg Cap PO 20 mg DAILY WILL Administration Furosemide 20 mg 08/05/20 09:00 08/05/20 09:28 Furosemide 20 Mg Tab PO 20 mg DAILY WILL Administration Sodium Chloride 1,000 mls @ 50 mls/hr 08/01/20 12:35 08/04/20 19:11 Normal Saline 0.9% IV Not Given .Q20H WILL Iron/Minerals/Multivitamins 1 tab 08/01/20 21:00 08/04/20 20:27 Multivitamin W/ Minerals 1 Tab PO 1 tab HS WILL Administration Lactulose 20 gm 08/01/20 21:00 08/05/20 09:28 Lactulose 20 Gm/30 Ml Udcup PO 20 gm BID WILL Administration Phytonadione 5 mg 08/01/20 21:00 08/04/20 20:27 Phytonadione 10 Mg/Ml Amp PO Not Given HS WILL - Exam General Appearance: awake alert Neck: no JVD Heart: RRR Respiratory: CTAB Gastrointestinal: soft, non-tender, normal bowel sounds Extremities: 1+ LE edema Hosp A/P (1) Acute cholangitis Code(s): K83.09 - OTHER CHOLANGITIS Status: Acute (2) Hep C w/o coma, chronic Code(s): B18.2 - CHRONIC VIRAL HEPATITIS C Status: Chronic (3) Coagulopathy Status: Chronic (4) SAH (subarachnoid hemorrhage) Code(s): I60.9 - NONTRAUMATIC SUBARACHNOID HEMORRHAGE, UNSPECIFIED Status: Acute (5) Sepsis with metabolic encephalopathy Code(s): A41.9 - SEPSIS, UNSPECIFIED ORGANISM; R65.20 - SEVERE SEPSIS WITHOUT SEPTIC SHOCK; G93.41 - METABOLIC ENCEPHALOPATHY Status: Acute (6) Hepatic cirrhosis Code(s): K74.60 - UNSPECIFIED CIRRHOSIS OF LIVER Status: Chronic Qualifiers: Ascites presence: unspecified - Plan wrote DC this AM family refuses to take him home CM involved antibx has been changed to po
--- NOTE | 2020-08-05 16:33 | PRG ---
DATE OF SERVICE: 08/05/2020 SUBJECTIVE: The patient is having less rib pain today. He is tolerating diet without nausea or vomiting. No chills or fever. PHYSICAL EXAMINATION: VITAL SIGNS: Temperature 98.3, blood pressure 128/81, pulse of 70. GENERAL: He is alert, lucid, and oriented. HEENT: Shows mildly icteric sclerae. Oropharynx is clear and moist. CARDIOVASCULAR: Shows normal S1 and S2. Regular rate and rhythm. CHEST: Shows breath sounds. Severe tenderness localized to the left lower rib cage. ABDOMEN: Soft and mildly protuberant, but no significant distention. No tympany. He has active bowel sounds. EXTREMITIES: Shows no edema. LABORATORY DATA: None today. ASSESSMENT: 1. Cholangitis from retained stent, status post endoscopic retrograde cholangiopancreatography with stent removal with clear cholangiogram. 2. Cirrhosis from chronic hepatitis C and alcohol usage. 3. Chronic hepatitis C, untreated. 4. Status post fall with subdural hematoma and rib fractures. 5. The patient is doing well clinically with cholangitis appears to be adequately treated. RECOMMENDATIONS: 1. The patient has been transitioned to oral Vantin. We will continue for 7 days. 2. Continue with Lasix, lactulose, and vitamin K. 3. Discharge planning, [place] [facility] option being explored. 4. No new GI recommendation. Please call if needed. Job ID: [id number]
[2020-08-05] MEDS: Sodium Chloride 0.9% 1,000 ML IV SCH (17:26)
[2020-08-05] MEDS: Phytonadione 10 MG/ML AMP PO SCH (19:50)
[2020-08-05] MEDS: Multivitamin W/ Minerals 1 TAB PO SCH (19:50)
[2020-08-06] MEDS: FLUoxetine HCl 20 MG CAP PO SCH (08:15)
[2020-08-06] MEDS: Furosemide 20 MG TAB PO SCH (08:15)
[2020-08-06] MEDS: Sodium Chloride 0.9% 1,000 ML IV SCH (08:16)
--- NOTE | 2020-08-06 09:15 | PDOC.HOSPP ---
- Subjective Encounter Date: 08/06/20 Encounter Time: 09:13 Subjective: no fever, abd pain, etc - Objective Vital Signs & Weight: Vital Signs (12 hours) Temp Pulse Resp BP Pulse Ox 08/06/20 08:00 99 08/06/20 07:08 98.6 F 76 18 121/80 Weight Weight 214 lb 8 oz I&O: 08/05/20 08/06/20 08/07/20 06:59 06:59 06:59 Intake Total 1420 1210 Output Total 300 Balance 1120 1210 Result Diagrams: 08/04/20 05:21 08/04/20 05:21 Hospitalist ROS - Medication Medications: Active Medications Generic Name Dose Route Start Last Admin Trade Name Freq PRN Reason Stop Dose Admin Cefpodoxime Proxetil 200 mg 08/05/20 21:00 08/06/20 08:14 Cefpodoxime Proxetil 200 Mg Tab PO 200 mg Q12HR WILL Administration Fluoxetine HCl 20 mg 08/02/20 09:00 08/06/20 08:15 Fluoxetine Hcl 20 Mg Cap PO 20 mg DAILY WILL Administration Furosemide 20 mg 08/05/20 09:00 08/06/20 08:15 Furosemide 20 Mg Tab PO 20 mg DAILY WILL Administration Sodium Chloride 1,000 mls @ 50 mls/hr 08/01/20 12:35 08/06/20 08:16 Normal Saline 0.9% IV Not Given .Q20H WILL Iron/Minerals/Multivitamins 1 tab 08/01/20 21:00 08/05/20 19:50 Multivitamin W/ Minerals 1 Tab PO 1 tab HS WILL Administration Lactulose 20 gm 08/01/20 21:00 08/06/20 08:14 Lactulose 20 Gm/30 Ml Udcup PO 20 gm BID WILL Administration Phytonadione 5 mg 08/01/20 21:00 08/05/20 19:50 Phytonadione 10 Mg/Ml Amp PO 5 mg HS WILL Administration - Exam General Appearance: awake alert Neck: no JVD Heart: RRR Respiratory: CTAB Gastrointestinal: soft, non-distended, normal bowel sounds Extremities: no edema Hosp A/P (1) Acute cholangitis Code(s): K83.09 - OTHER CHOLANGITIS Status: Acute (2) Hep C w/o coma, chronic Code(s): B18.2 - CHRONIC VIRAL HEPATITIS C Status: Chronic (3) Coagulopathy Status: Chronic (4) SAH (subarachnoid hemorrhage) Code(s): I60.9 - NONTRAUMATIC SUBARACHNOID HEMORRHAGE, UNSPECIFIED Status: Acute (5) Sepsis with metabolic encephalopathy Code(s): A41.9 - SEPSIS, UNSPECIFIED ORGANISM; R65.20 - SEVERE SEPSIS WITHOUT SEPTIC SHOCK; G93.41 - METABOLIC ENCEPHALOPATHY Status: Acute (6) Hepatic cirrhosis Code(s): K74.60 - UNSPECIFIED CIRRHOSIS OF LIVER Status: Chronic Qualifiers: Ascites presence: unspecified - Plan CM involved for placement antibx has been changed to po cont lasix, etc
[2020-08-06] MEDS: Multivitamin W/ Minerals 1 TAB PO SCH (21:23)
[2020-08-06] MEDS: Phytonadione 10 MG/ML AMP PO SCH (21:23)
[2020-08-07] MEDS: Sodium Chloride 0.9% 1,000 ML IV SCH (05:16)
[2020-08-07] MEDS: FLUoxetine HCl 20 MG CAP PO SCH (08:19)
[2020-08-07] MEDS: Furosemide 20 MG TAB PO SCH (08:19)
--- NOTE | 2020-08-07 12:43 | PDOC.HOSPP ---
- Subjective Encounter Date: 08/07/20 Encounter Time: 07:00 Subjective: Patient seen and examined. No new complaints. No overnight events - Objective Vital Signs & Weight: Vital Signs (12 hours) Temp Pulse Resp BP Pulse Ox 08/07/20 08:00 97 08/07/20 07:13 98.0 F 65 20 131/83 Weight Weight 214 lb 8 oz I&O: 08/06/20 08/07/20 08/08/20 06:59 06:59 06:59 Intake Total 1210 1500 240 Balance 1210 1500 240 Result Diagrams: 08/04/20 05:21 08/04/20 05:21 Hospitalist ROS - Review of Systems ENT: denies: ear pain, ear discharge, nose pain, nose discharge, nose congestion, mouth pain, mouth swelling, throat pain, throat swelling, other Respiratory: denies: cough, dry, shortness of breath, hemoptysis, SOB with ex certion, pleuritic pain, sputum, wheezing, other Cardiovascular: denies: chest pain, palpitations, orthopnea, paroxysmal noc. dyspnea, edema, light headedness, other Gastrointestinal: denies: nausea, vomiting, abdominal pain, diarrhea, constipation, melena, hematochezia, other Genitourinary: denies: dysuria, frequency, incontinence, hematuria, retention, other Musculoskeletal: denies: neck pain, shoulder pain, arm pain, back pain, hand pain, leg pain, foot pain, other - Medication Medications: Active Medications Generic Name Dose Route Start Last Admin Trade Name Freq PRN Reason Stop Dose Admin Cefpodoxime Proxetil 200 mg 08/05/20 21:00 08/07/20 08:19 Cefpodoxime Proxetil 200 Mg Tab PO 200 mg Q12HR WILL Administration Fluoxetine HCl 20 mg 08/02/20 09:00 08/07/20 08:19 Fluoxetine Hcl 20 Mg Cap PO 20 mg DAILY WILL Administration Furosemide 20 mg 08/05/20 09:00 08/07/20 08:19 Furosemide 20 Mg Tab PO 20 mg DAILY WILL Administration Sodium Chloride 1,000 mls @ 50 mls/hr 08/01/20 12:35 08/07/20 05:16 Normal Saline 0.9% IV Not Given .Q20H WILL Iron/Minerals/Multivitamins 1 tab 08/01/20 21:00 08/06/20 21:23 Multivitamin W/ Minerals 1 Tab PO 1 tab HS WILL Administration Lactulose 20 gm 08/01/20 21:00 08/07/20 08:19 Lactulose 20 Gm/30 Ml Udcup PO 20 gm BID WILL Administration Phytonadione 5 mg 08/01/20 21:00 08/06/20 21:23 Phytonadione 10 Mg/Ml Amp PO 5 mg HS WILL Administration - Exam General Appearance: NAD, awake alert Eye: PERRL, anicteric sclera ENT: normocephalic atraumatic, no oropharyngeal lesions Neck: supple, symmetric, no JVD, no thyromegaly Heart: RRR, no murmur, no gallops, no rubs Respiratory: CTAB, no wheezes, no rales, no ronchi Gastrointestinal: soft, non-tender, non-distended, normal bowel sounds Extremities: no cyanosis, no clubbing Skin: normal turgor, no lesions Neurological: no focal deficits Musculoskeletal: normal tone, normal strength Psychiatric: normal affect, normal behavior Hosp A/P (1) Acute cholangitis Code(s): K83.09 - OTHER CHOLANGITIS Status: Acute (2) Fall Code(s): W19.XXXA - UNSPECIFIED FALL, INITIAL ENCOUNTER Status: Acute Qualifiers: Encounter type: initial encounter Qualified Code(s): W19.XXXA - Unspecified fall, initial encounter (3) Normal pressure hydrocephalus Code(s): G91.2 - (IDIOPATHIC) NORMAL PRESSURE HYDROCEPHALUS Status: Chronic (4) Rib fractures Code(s): S22.39XA - FRACTURE OF ONE RIB, UNSP SIDE, INIT FOR CLOS FX Status: Chronic (5) SAH (subarachnoid hemorrhage) Code(s): I60.9 - NONTRAUMATIC SUBARACHNOID HEMORRHAGE, UNSPECIFIED Status: Acute (6) Sepsis with metabolic encephalopathy Code(s): A41.9 - SEPSIS, UNSPECIFIED ORGANISM; R65.20 - SEVERE SEPSIS WITHOUT SEPTIC SHOCK; G93.41 - METABOLIC ENCEPHALOPATHY Status: Acute (7) Hep C w/o coma, chronic Code(s): B18.2 - CHRONIC VIRAL HEPATITIS C Status: Chronic (8) Hepatic cirrhosis Code(s): K74.60 - UNSPECIFIED CIRRHOSIS OF LIVER Status: Chronic Qualifiers: Ascites presence: unspecified - Plan old records reviewed/req, PT/OT, director of social media marketing send repeat covid 19 test for discharge planning stable, needs placement community case manager working on reviewed all medical chart and stable with current treatment
[2020-08-07] MEDS: Multivitamin W/ Minerals 1 TAB PO SCH (21:23)
[2020-08-07] MEDS: Phytonadione 10 MG/ML AMP PO SCH (22:09)
[2020-08-08] MEDS: Sodium Chloride 0.9% 1,000 ML IV SCH (01:35)
[2020-08-08] MEDS ORDERED: Cepastat Lozenges 1 LOZ PO PRN (07:59)
[2020-08-08] MEDS ORDERED: Diabetic Tussin 200 MG/10 ML UDCUP PO PRN (07:59)
[2020-08-08] MEDS ORDERED: Ondansetron ODT 4 MG TAB PO PRN (07:59)
[2020-08-08] MEDS ORDERED: Loratadine 10 MG TAB PO PRN (07:59)
[2020-08-08] MEDS ORDERED: Calcium Carbonate 500 MG ChewTAB PO PRN (07:59)
[2020-08-08] MEDS ORDERED: Sodium Chloride 0.65% Nasal 44 ML BOT EA NARE PRN (07:59)
[2020-08-08] MEDS ORDERED: Loperamide HCl 2 MG CAP PO PRN (07:59)
[2020-08-08] MEDS ORDERED: Senokot S 8.6-50 MG TAB PO PRN (07:59)
[2020-08-08] MEDS ORDERED: hydrALAZINE 20 MG/ML VIAL SLOW IVP PRN (07:59)
[2020-08-08] MEDS: Furosemide 20 MG TAB PO SCH (08:05)
[2020-08-08] MEDS: FLUoxetine HCl 20 MG CAP PO SCH (08:05)
[2020-08-08] MEDS: Famotidine 20 MG TAB PO SCH ×2 (08:38→20:40)
--- NOTE | 2020-08-08 10:06 | PDOC.HOSPP ---
- Subjective Encounter Date: 08/08/20 Encounter Time: 07:10 Subjective: Last night he had vomiting of bile, no fever, no abdominal pain - Objective Vital Signs & Weight: Vital Signs (12 hours) Temp Pulse Resp BP Pulse Ox 08/08/20 08:00 96 08/08/20 07:20 98.3 F 65 20 139/73 Weight Weight 214 lb 8 oz I&O: 08/07/20 08/08/20 08/09/20 06:59 06:59 06:59 Intake Total 1500 960 240 Output Total 800 Balance 1500 160 240 Result Diagrams: 08/04/20 05:21 08/04/20 05:21 Hospitalist ROS - Review of Systems Eyes: denies: pain, vision change, conjunctivae inflammation, eyelid inflammation, redness, other ENT: denies: ear pain, ear discharge, nose pain, nose discharge, nose congestion, mouth pain, mouth swelling, throat pain, throat swelling, other Respiratory: denies: cough, dry, shortness of breath, hemoptysis, SOB with excertion, pleuritic pain, sputum, wheezing, other Cardiovascular: denies: chest pain, palpitations, orthopnea, paroxysmal noc. dyspnea, edema, light headedness, other Gastrointestinal: reports: vomiting. denies: nausea, abdominal pain, diarrhea, constipation, melena, hematochezia, other Genitourinary: denies: dysuria, frequency, incontinence, hematuria, retention, other Musculoskeletal: denies: neck pain, shoulder pain, arm pain, back pain, hand pain, leg pain, foot pain, other Skin: denies: rash, lesions, shiv, bruising, other - Medication Medications: Active Medications Generic Name Dose Route Start Last Admin Trade Name Almasq PRN Reason Stop Dose Admin Cefpodoxime Proxetil 200 mg 08/05/20 21:00 08/08/20 08:05 Cefpodoxime Proxetil 200 Mg Tab PO 200 mg Q12HR WILL Administration Famotidine 20 mg 08/08/20 09:00 08/08/20 08:38 Famotidine 20 Mg Tab PO 20 mg BID WILL Administration Fluoxetine HCl 20 mg 08/02/20 09:00 08/08/20 08:05 Fluoxetine Hcl 20 Mg Cap PO 20 mg DAILY WILL Administration Furosemide 20 mg 08/05/20 09:00 08/08/20 08:05 Furosemide 20 Mg Tab PO 20 mg DAILY WILL Administration Iron/Minerals/Multivitamins 1 tab 08/01/20 21:00 08/07/20 21:23 Multivitamin W/ Minerals 1 Tab PO 1 tab HS WILL Administration Lactulose 20 gm 08/01/20 21:00 08/08/20 08:05 Lactulose 20 Gm/30 Ml Udcup PO 20 gm BID WILL Administration - Exam General Appearance: NAD, awake alert Eye: PERRL, anicteric sclera ENT: normocephalic atraumatic, no oropharyngeal lesions Neck: supple, symmetric, no JVD, no thyromegaly Heart: RRR, no murmur, no gallops, no rubs, normal peripheral pulses Respiratory: CTAB, no wheezes, no rales, no ronchi Gastrointestinal: soft, normal bowel sounds, no hepatomegaly, no splenomegaly Gastrointestinal - other findings: Mild distention noted Extremities: no cyanosis, no clubbing Skin: normal turgor, no lesions Neurological: no focal deficits Musculoskeletal: normal tone, normal strength Psychiatric: normal affect, normal behavior Hosp A/P (1) Acute cholangitis Code(s): K83.09 - OTHER CHOLANGITIS Status: Acute (2) Fall Code(s): W19.XXXA - UNSPECIFIED FALL, INITIAL ENCOUNTER Status: Acute Qualifiers: Encounter type: initial encounter Qualified Code(s): W19.XXXA - Unspecified fall, initial encounter (3) Normal pressure hydrocephalus Code(s): G91.2 - (IDIOPATHIC) NORMAL PRESSURE HYDROCEPHALUS Status: Chronic (4) Rib fractures Code(s): S22.39XA - FRACTURE OF ONE RIB, UNSP SIDE, INIT FOR CLOS FX Status: Chronic Qualifiers: Encounter type: subsequent encounter (5) SAH (subarachnoid hemorrhage) Code(s): I60.9 - NONTRAUMATIC SUBARACHNOID HEMORRHAGE, UNSPECIFIED Status: Acute (6) Sepsis with metabolic encephalopathy Code(s): A41.9 - SEPSIS, UNSPECIFIED ORGANISM; R65.20 - SEVERE SEPSIS WITHOUT SEPTIC SHOCK; G93.41 - METABOLIC ENCEPHALOPATHY Status: Acute (7) Hep C w/o coma, chronic Code(s): B18.2 - CHRONIC VIRAL HEPATITIS C Status: Chronic (8) Hepatic cirrhosis Code(s): K74.60 - UNSPECIFIED CIRRHOSIS OF LIVER Status: Chronic Qualifiers: Ascites presence: unspecified (9) Hypoalbuminemia due to protein-calorie malnutrition Code(s): E88.09 - OTH DISORDERS OF PLASMA-PROTEIN METABOLISM, NEC; E46 - UNSPECIFIED PROTEIN-CALORIE MALNUTRITION Status: Chronic (10) Hypokalemia Code(s): E87.6 - HYPOKALEMIA Status: Acute - Plan old records reviewed/req, continue antibiotics, PT/OT, social human services assistants Repeat COVID-19 test is pending, Await placement Tomorrow we will repeat CBC CMP magnesium and phosphorus Medication reviewed and continue provide symptomatic and supportive care
[2020-08-08 12:02] LABS: SARS-CoV-2 MS2 Positive; SARS-CoV-2 N Gene Negative; SARS-CoV-2 S Gene Negative; SARS-CoV-2 by NAA Not Detected (NotDetected); SARS-CoV-2 orf1ab Negative
[2020-08-08] MEDS: Multivitamin W/ Minerals 1 TAB PO SCH (20:40)
[2020-08-09 06:05] LABS: #Basophils 0.1 thou/uL (0.0-0.2); #Eosinphils 0.1 thou/uL (0.0-0.7); #Lymphocytes 0.9 thou/uL (1.20-3.40); #Monocytes 0.5 thou/uL (0.11-0.59); #Neutrophils 2.6 thou/uL (1.40-6.50); %Basophils 1.6 % (0.0-1.0); %Eosinophils 2.3 % (0.0-10.0); %Lymphocytes 22.3 % (21.0-51.0); %Monocytes 11.6 % (0.0-10.0); %Neutrophils 62.3 % (42.0-75.0); Mean Corpuscular HGB CONC 31.9 g/dL (32.0-36.0); Mean Corpuscular Hemoglobin 29.3 pg (27.0-31.0); Mean Corpuscular Volume 91.9 fL (78.0-98.0); Mean Platelet Volume 7.3 fL (7.4-10.4); Platelet Count 190 thou/uL (130-400); RBC Distribution Width 16.2 % (11.5-14.5); Red Blood Cell (RBC) Count 3.77 mill/uL (4.70-6.10); White Blood Cell (WBC) Count 4.1 thou/uL (4.8-10.8)
[2020-08-09 06:10] LABS: Prothrombin Time 23.3 sec (12.0-14.7)
[2020-08-09 06:23] LABS: ALT (SGPT) 27 U/L (8-55); AST (SGOT) 84 U/L (5-34); Albumin 1.7 g/dL (3.5-5.0); Alkaline Phosphatase 221 U/L (40-110); Anion Gap 8 mmol/L (10-20); BUN (Urea Nitrogen) 5 mg/dL (8.4-25.7); Bilirubin, Total 4.5 mg/dL (0.2-1.2); Calc. Creatinine Clearance 206 mL/min (70-130); Calcium 7.1 mg/dL (7.8-10.44); Carbon Dioxide 23 mmol/L (22-29); Chloride 108 mmol/L (98-107); Estimated GFR-MDRD Greater than 90; Globulin 4.8 g/dL (2.4-3.5); Glucose 73 mg/dL (70-105); Magnesium 1.8 mg/dL (1.6-2.6); Phosphorus 2.5 mg/dL (2.3-4.7); Potassium 3.2 mmol/L (3.5-5.1); Protein, Total 6.5 g/dL (6.0-8.3); Sodium 136 mmol/L (136-145)
[2020-08-09] MEDS: Furosemide 20 MG TAB PO SCH (07:59)
[2020-08-09] MEDS: Famotidine 20 MG TAB PO SCH ×2 (07:59→20:53)
[2020-08-09] MEDS: Potassium Chloride 20 MEQ TAB PO SCH ×2 (07:59→16:42)
[2020-08-09] MEDS: FLUoxetine HCl 20 MG CAP PO SCH (07:59)
--- NOTE | 2020-08-09 09:39 | PDOC.HOSPP ---
- Subjective Encounter Date: 08/09/20 Encounter Time: 07:40 Subjective: Patient has intermittent biliary vomiting, no fever, no abdominal pain, - Objective Vital Signs & Weight: Vital Signs (12 hours) Temp Pulse Resp BP Pulse Ox 08/09/20 08:00 97 08/09/20 07:51 98.4 F 73 18 126/67 97 Weight Weight 214 lb 8 oz I&O: 08/08/20 08/09/20 08/10/20 06:59 06:59 06:59 Intake Total 960 1220 240 Output Total 800 Balance 160 1220 240 Result Diagrams: 08/09/20 05:33 08/09/20 05:33 Hospitalist ROS - Review of Systems Eyes: denies: pain, vision change, conjunctivae inflammation, eyelid inflammation, redness, other ENT: denies: ear pain, ear discharge, nose pain, nose discharge, nose congestion, mouth pain, mouth swelling, throat pain, throat swelling, other Respiratory: denies: cough, dry, shortness of breath, hemoptysis, SOB with excertion, pleuritic pain, sputum, wheezing, other Cardiovascular: denies: chest pain, palpitations, orthopnea, paroxysmal noc. dyspnea, edema, light headedness, other Gastrointestinal: reports: nausea, vomiting. denies: abdominal pain, diarrhea, constipation, melena, hematochezia, other Genitourinary: denies: dysuria, frequency, incontinence, hematuria, retention, other Musculoskeletal: denies: neck pain, shoulder pain, arm pain, back pain, hand pain, leg pain, foot pain, other - Medication Medications: Active Medications Generic Name Dose Route Start Last Admin Trade Name Connie PRN Reason Stop Dose Admin Cefpodoxime Proxetil 200 mg 08/05/20 21:00 08/09/20 07:59 Cefpodoxime Proxetil 200 Mg Tab PO 200 mg Q12HR WILL Administration Famotidine 20 mg 08/08/20 09:00 08/09/20 07:59 Famotidine 20 Mg Tab PO 20 mg BID WILL Administration Fluoxetine HCl 20 mg 08/02/20 09:00 08/09/20 07:59 Fluoxetine Hcl 20 Mg Cap PO 20 mg DAILY WILL Administration Furosemide 20 mg 08/05/20 09:00 08/09/20 07:59 Furosemide 20 Mg Tab PO 20 mg DAILY WILL Administration Iron/Minerals/Multivitamins 1 tab 08/01/20 21:00 08/08/20 20:40 Multivitamin W/ Minerals 1 Tab PO 1 tab HS WILL Administration Lactulose 20 gm 08/01/20 21:00 08/09/20 07:59 Lactulose 20 Gm/30 Ml Udcup PO Not Given BID WILL Ondansetron HCl 4 mg 08/08/20 07:59 08/08/20 10:23 Ondansetron Odt 4 Mg Tab PO 4 mg Q6H PRN Administration Nausea/Vomiting Potassium Chloride 40 meq 08/09/20 08:00 08/09/20 07:59 Potassium Chloride 20 Meq Tab PO 08/09/20 17:01 40 meq BID-WM WILL Administration - Exam General Appearance: NAD, awake alert Eye: PERRL ENT: normocephalic atraumatic, no oropharyngeal lesions Neck: supple, symmetric, no JVD Heart: RRR, no murmur, no gallops, no rubs Respiratory: no wheezes, no rales, no ronchi Gastrointestinal: soft, non-tender, non-distended, normal bowel sounds, no guarding, no rigidity Gastrointestinal - other findings: Ascites noted Extremities: no clubbing, no edema Skin: normal turgor, no lesions Neurological: no focal deficits Musculoskeletal: normal tone, normal strength Psychiatric: normal affect, normal behavior Hosp A/P (1) Acute cholangitis Code(s): K83.09 - OTHER CHOLANGITIS Status: Acute Plan: S/p biliary stent removal, culture negative (2) Fall Code(s): W19.XXXA - UNSPECIFIED FALL, INITIAL ENCOUNTER Status: Acute Qualifiers: Encounter type: initial encounter Qualified Code(s): W19.XXXA - Unspecified fall, initial encounter (3) Normal pressure hydrocephalus Code(s): G91.2 - (IDIOPATHIC) NORMAL PRESSURE HYDROCEPHALUS Status: Chronic (4) Rib fractures Code(s): S22.39XA - FRACTURE OF ONE RIB, UNSP SIDE, INIT FOR CLOS FX Status: Chronic Qualifiers: Encounter type: subsequent encounter (5) SAH (subarachnoid hemorrhage) Code(s): I60.9 - NONTRAUMATIC SUBARACHNOID HEMORRHAGE, UNSPECIFIED Status: Acute (6) Sepsis with metabolic encephalopathy Code(s): A41.9 - SEPSIS, UNSPECIFIED ORGANISM; R65.20 - SEVERE SEPSIS WITHOUT SEPTIC SHOCK; G93.41 - METABOLIC ENCEPHALOPATHY Status: Acute (7) Hep C w/o coma, chronic Code(s): B18.2 - CHRONIC VIRAL HEPATITIS C Status: Chronic (8) Hepatic cirrhosis Code(s): K74.60 - UNSPECIFIED CIRRHOSIS OF LIVER Status: Chronic Qualifiers: Ascites presence: unspecified (9) Hypoalbuminemia due to protein-calorie malnutrition Code(s): E88.09 - OTH DISORDERS OF PLASMA-PROTEIN METABOLISM, NEC; E46 - UNSPECIFIED PROTEIN-CALORIE MALNUTRITION Status: Chronic (10) Hypokalemia Code(s): E87.6 - HYPOKALEMIA Status: Acute - Plan old records reviewed/req, continue antibiotics, PT/OT, social service worker Replace potassium We will order ultrasound right upper quadrant to look for any pathology for his recurrent nausea and vomiting Continue Vantin We will repeat potassium tomorrow Await placement Continue PT OT
--- NOTE | 2020-08-09 10:56 | ULT ---
Exam: Right upper quadrant ultrasound: HISTORY: Nausea and vomiting. COMPARISON: 01/22/[address] abdomen on 06/26/2020. FINDINGS: Liver: There is evidence of intrahepatic biliary ductal dilatation greater involving the left hepatic lobe compared to the right. This finding was seen on prior CT examination as well as prior ultrasound examination. Portions of the liver are obscured due to shadowing from adjacent ribs. Gallbladder: Not visualized, and patient has history of prior cholecystectomy. Common bile duct: Not visualized on this examination due to shadowing from bowel gas through this reg ion. Pancreas: Completely obscured and not able to be evaluated. Right kidney: Approximately 1 cm anechoic cystic structure with thin internal septation noted in the midportion right kidney.. Cystic lesion was seen in the midportion right kidney on MRI abdomen in [address] abdomen in 2012. The right kidney measures 10.6 cm in length. IVC: Not well assessed due to shadowing from bowel gas. Small amount of ascites is present in the right upper quadrant. IMPRESSION: 1. Limited examination, but there is evidence of intrahepatic biliary duct dilatation greater involvi ng the left hepatic lobe compared to the right. However, this is a stable finding. Common duct is not visualized. 2. Postcholecystectomy changes. 3. Right renal cyst. 4. Small amount of ascites in the right upper quadrant.
[2020-08-09] MEDS ORDERED: cefTRIAXone\\ROCEPHIN 2 GM in Sodium Chloride 0.9% 100 ML IVPB SCH (15:00)
--- NOTE | 2020-08-09 15:15 | PRG ---
DATE OF SERVICE: 08/09/2020 SUBJECTIVE: Mr. De Santiago has developed pain in the epigastric area, left upper quadrant, associated with nausea, vomiting, particularly when he eats, but also sometimes without eating. He has not vomited today. He is voiding without difficulty. No respiratory symptoms. No neurological symptoms. OBJECTIVE: VITAL SIGNS: He has been afebrile for many days now, setting of 97 on room air. He is not tachycardic. Blood pressure 120/67. GENERAL: Jaundice is noted. LUNGS: Symmetric air entry. ABDOMEN: Markedly tender epigastric and left upper quadrant area. Abdomen is moderately distended. Question of ascites. LABORATORY DATA: Sodium is at 136, creatinine 0.55. Bilirubin is up to 4.5, AST 84, ALT 27. White cell count 4.1, hemoglobin 11, platelets 190, 62% neutrophils. Abdominal ultrasound showed biliary dilatation, which is unchanged from previous exams, localized to the left side more than the right. Small amount of ascites in the right upper quadrant noted. Currently, the patient is on cefpodoxime 200 q.12 hours. ASSESSMENT AND DISCUSSION: Chronic hep C, liver cirrhosis, portal hypertension, obstructive jaundice secondary to biliary duct stones, status post stent placement at [facility] and then stent now removed as recommended. The patient did not return for followup there and now he was admitted with likely cholangitis, stent was removed by Dr. Canchola, I believe, and now the patient is having abdominal pain and vomiting. Differential diagnosis includes pancreatitis, biliary colic, an alternate inflammatory process appears to be less likely. Gastritis is a concern, but was not present during the endoscopy just a few days ago, so that is not likely. We will repeat his lipase. May have to go back to IV Rocephin since he may not be absorbing the Vantin properly. Job ID: [id number]
[2020-08-09] MEDS: Multivitamin W/ Minerals 1 TAB PO SCH (20:53)
[2020-08-10 05:39] LABS: Potassium 3.8 mmol/L (3.5-5.1)
[2020-08-10] MEDS: Famotidine 20 MG TAB PO SCH ×2 (08:00→21:01)
[2020-08-10] MEDS: Furosemide 20 MG TAB PO SCH (08:00)
[2020-08-10] MEDS: FLUoxetine HCl 20 MG CAP PO SCH (08:00)
[2020-08-10 10:39] VITALS: BMI 29.0
--- NOTE | 2020-08-10 11:29 | PDOC.HOSPP ---
- Subjective Encounter Date: 08/10/20 Encounter Time: 07:30 Subjective: Patient seen and examined. No new complaints. No overnight events - Objective Vital Signs & Weight: Vital Signs (12 hours) Temp Pulse Resp BP 08/10/20 07:10 97.9 F 62 20 149/78 H Weight Admit Weight 203 lb 1.6 oz Weight 214 lb 8 oz I&O: 08/09/20 08/10/20 08/11/20 06:59 06:59 06:59 Intake Total 1220 960 Balance 1220 960 Result Diagrams: 08/09/20 05:33 08/10/20 05:04 Hospitalist ROS - Review of Systems ENT: denies: ear pain, ear discharge, nose pain, nose discharge, nose congestion, mouth pain, mouth swelling, throat pain, throat swelling, other Respiratory: denies: cough, dry, shortness of breath, hemoptysis, SOB with excertion, pleuritic pain, sputum, wheezing, other Cardiovascular: denies: chest pain, palpitations, orthopnea, paroxysmal noc. dyspnea, edema, light headedness, other Gastrointestinal: denies: nausea, vomiting, abdominal pain, diarrhea, constipation, melena, hematochezia, other Genitourinary: denies: dysuria, frequency, incontinence, hematuria, retention, other Musculoskeletal: denies: neck pain, shoulder pain, arm pain, back pain, hand pain, leg pain, foot pain, other - Medication Medications: Active Medications Generic Name Dose Route Start Last Admin Trade Name Freq PRN Reason Stop Dose Admin Cefpodoxime Proxetil 200 mg 08/09/20 21:00 08/10/20 08:00 Cefpodoxime Proxetil 200 Mg Tab PO Not Given BID WILL Famotidine 20 mg 08/08/20 09:00 08/10/20 08:00 Famotidine 20 Mg Tab PO Not Given BID WILL Fluoxetine HCl 20 mg 08/02/20 09:00 08/10/20 08:00 Fluoxetine Hcl 20 Mg Cap PO Not Given DAILY WILL Furosemide 20 mg 08/05/20 09:00 08/10/20 08:00 Furosemide 20 Mg Tab PO Not Given DAILY WILL Iron/Minerals/Multivitamins 1 tab 08/01/20 21:00 08/09/20 20:53 Multivitamin W/ Minerals 1 Tab PO Not Given HS WILL Lactulose 20 gm 08/01/20 21:00 08/10/20 08:00 Lactulose 20 Gm/30 Ml Udcup PO Not Given BID WILL Ondansetron HCl 4 mg 08/08/20 07:59 08/08/20 10:23 Ondansetron Odt 4 Mg Tab PO 4 mg Q6H PRN Administration Nausea/Vomiting - Exam General Appearance: NAD, awake alert Eye: PERRL, anicteric sclera ENT: normocephalic atraumatic, no oropharyngeal lesions Neck: supple, symmetric, no JVD Heart: RRR, no murmur, no gallops, no rubs Respiratory: no wheezes, no rales, no ronchi Gastrointestinal: soft, non-tender, non-distended, normal bowel sounds Gastrointestinal - other findings: Ascites Extremities: no clubbing, no edema Skin: normal turgor, no lesions Neurological: no focal deficits Musculoskeletal: normal tone, normal strength Psychiatric: normal affect, normal behavior Hosp A/P (1) Acute cholangitis Code(s): K83.09 - OTHER CHOLANGITIS Status: Resolved (2) Fall Code(s): W19.XXXA - UNSPECIFIED FALL, INITIAL ENCOUNTER Status: Acute Qualifiers: Encounter type: initial encounter Qualified Code(s): W19.XXXA - Unspecified fall, initial encounter (3) Normal pressure hydrocephalus Code(s): G91.2 - (IDIOPATHIC) NORMAL PRESSURE HYDROCEPHALUS Status: Chronic (4) Rib fractures Code(s): S22.39XA - FRACTURE OF ONE RIB, UNSP SIDE, INIT FOR CLOS FX Status: Chronic Qualifiers: Encounter type: subsequent encounter (5) SAH (subarachnoid hemorrhage) Code(s): I60.9 - NONTRAUMATIC SUBARACHNOID HEMORRHAGE, UNSPECIFIED Status: Acute (6) Sepsis with metabolic encephalopathy Code(s): A41.9 - SEPSIS, UNSPECIFIED ORGANISM; R65.20 - SEVERE SEPSIS WITHOUT SEPTIC SHOCK; G93.41 - METABOLIC ENCEPHALOPATHY Status: Resolved (7) Hep C w/o coma, chronic Code(s): B18.2 - CHRONIC VIRAL HEPATITIS C Status: Chronic (8) Hepatic cirrhosis Code(s): K74.60 - UNSPECIFIED CIRRHOSIS OF LIVER Status: Chronic Qualifiers: Ascites presence: with ascites (9) Hypoalbuminemia due to protein-calorie malnutrition Code(s): E88.09 - OTH DISORDERS OF PLASMA-PROTEIN METABOLISM, NEC; E46 - UNSPECIFIED PROTEIN-CALORIE MALNUTRITION Status: Chronic (10) Hypokalemia Code(s): E87.6 - HYPOKALEMIA Status: Resolved - Plan old records reviewed/req, continue antibiotics, PT/OT, group social worker Patient does not have any IV access so we have continued oral Vantin Continue PT OT Continue symptomatic treatment Patient will need placement Patient is medically stable
[2020-08-10] MEDS: Multivitamin W/ Minerals 1 TAB PO SCH (21:01)
[2020-08-11] MEDS: Famotidine 20 MG TAB PO SCH ×2 (07:50→20:11)
[2020-08-11] MEDS: FLUoxetine HCl 20 MG CAP PO SCH (07:51)
[2020-08-11] MEDS: Furosemide 20 MG TAB PO SCH (07:51)
--- NOTE | 2020-08-11 10:29 | PDOC.HOSPP ---
- Subjective Encounter Date: 08/11/20 Encounter Time: 07:40 Subjective: Patient seen and examined. No new complaints. No overnight events, patient has been refusing all his medication because he feels that medication making him sick, - Objective Vital Signs & Weight: Vital Signs (12 hours) Temp Pulse Resp BP Pulse Ox 08/11/20 07:12 98.3 F 59 L 20 136/66 93 L Weight Admit Weight 203 lb 1.6 oz Weight 214 lb 8 oz I&O: 08/10/20 08/11/20 08/12/20 06:59 06:59 06:59 Intake Total 960 837 Balance 960 837 Result Diagrams: 08/09/20 05:33 08/10/20 05:04 Hospitalist ROS - Review of Systems ENT: denies: ear pain, ear discharge, nose pain, nose discharge, nose congestion, mouth pain, mouth swelling, throat pain, throat swelling, other Respiratory: denies: cough, dry, shortness of breath, hemoptysis, SOB with excertion, pleuritic pain, sputum, wheezing, other Cardiovascular: denies: chest pain, palpitations, orthopnea, paroxysmal noc. dy spnea, edema, light headedness, other Gastrointestinal: denies: nausea, vomiting, abdominal pain, diarrhea, constipation, melena, hematochezia, other Genitourinary: denies: dysuria, frequency, incontinence, hematuria, retention, other Musculoskeletal: denies: neck pain, shoulder pain, arm pain, back pain, hand pain, leg pain, foot pain, other - Medication Medications: Active Medications Generic Name Dose Route Start Last Admin Trade Name Connie PRN Reason Stop Dose Admin Cefpodoxime Proxetil 200 mg 08/09/20 21:00 08/11/20 07:50 Cefpodoxime Proxetil 200 Mg Tab PO Not Given BID WILL Famotidine 20 mg 08/08/20 09:00 08/11/20 07:50 Famotidine 20 Mg Tab PO Not Given BID WILL Fluoxetine HCl 20 mg 08/02/20 09:00 08/11/20 07:51 Fluoxetine Hcl 20 Mg Cap PO Not Given DAILY WILL Furosemide 20 mg 08/05/20 09:00 08/11/20 07:51 Furosemide 20 Mg Tab PO Not Given DAILY WILL Iron/Minerals/Multivitamins 1 tab 08/01/20 21:00 08/10/20 21:01 Multivitamin W/ Minerals 1 Tab PO Not Given HS WILL Lactulose 20 gm 08/01/20 21:00 08/11/20 07:51 Lactulose 20 Gm/30 Ml Udcup PO Not Given BID WILL Ondansetron HCl 4 mg 08/08/20 07:59 08/08/20 10:23 Ondansetron Odt 4 Mg Tab PO 4 mg Q6H PRN Administration Nausea/Vomiting - Exam General Appearance: NAD, awake alert Eye: PERRL, anicteric sclera ENT: normocephalic atraumatic, no oropharyngeal lesions Neck: supple, symmetric, no JVD Heart: RRR, no murmur, no gallops, no rubs Respiratory: no wheezes, no rales, no ronchi Gastrointestinal: soft, non-tender, non-distended, normal bowel sounds Extremities: no cyanosis, no clubbing, no edema Skin: normal turgor, no lesions Neurological: no focal deficits Musculoskeletal: normal tone, normal strength Psychiatric: normal affect, normal behavior Hosp A/P (1) Acute cholangitis Code(s): K83.09 - OTHER CHOLANGITIS Status: Resolved (2) Fall Code(s): W19.XXXA - UNSPECIFIED FALL, INITIAL ENCOUNTER Status: Acute Qualifiers: Encounter type: initial encounter Qualified Code(s): W19.XXXA - Unspecified fall, initial encounter (3) Normal pressure hydrocephalus Code(s): G91.2 - (IDIOPATHIC) NORMAL PRESSURE HYDROCEPHALUS Status: Chronic (4) Rib fractures Code(s): S22.39XA - FRACTURE OF ONE RIB, UNSP SIDE, INIT FOR CLOS FX Status: Chronic Qualifiers: Encounter type: subsequent encounter (5) SAH (subarachnoid hemorrhage) Code(s): I60.9 - NONTRAUMATIC SUBARACHNOID HEMORRHAGE, UNSPECIFIED Status: Acute (6) Sepsis with metabolic encephalopathy Code(s): A41.9 - SEPSIS, UNSPECIFIED ORGANISM; R65.20 - SEVERE SEPSIS WITHOUT SEPTIC SHOCK; G93.41 - METABOLIC ENCEPHALOPATHY Status: Resolved (7) Hep C w/o coma, chronic Code(s): B18.2 - CHRONIC VIRAL HEPATITIS C Status: Chronic (8) Hepatic cirrhosis Code(s): K74.60 - UNSPECIFIED CIRRHOSIS OF LIVER Status: Chronic Qualifiers: Ascites presence: with ascites (9) Hypoalbuminemia due to protein-calorie malnutrition Code(s): E88.09 - OTH DISORDERS OF PLASMA-PROTEIN METABOLISM, NEC; E46 - UNSPECIFIED PROTEIN-CALORIE MALNUTRITION Status: Chronic (10) Hypokalemia Code(s): E87.6 - HYPOKALEMIA Status: Resolved - Plan old records reviewed/req, continue antibiotics, 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
[2020-08-11] MEDS: Ciprofloxacin 500 MG TAB PO SCH (19:05)
[2020-08-11] MEDS: Multivitamin W/ Minerals 1 TAB PO SCH (20:11)
[2020-08-12] MEDS: Ciprofloxacin 500 MG TAB PO SCH (06:16)
[2020-08-12] MEDS: Famotidine 20 MG TAB PO SCH ×2 (12:51→20:21)
[2020-08-12] MEDS: FLUoxetine HCl 20 MG CAP PO SCH (12:51)
[2020-08-12] MEDS: Furosemide 20 MG TAB PO SCH (12:51)
--- NOTE | 2020-08-12 13:45 | PRG ---
DATE OF SERVICE: 08/12/2020 SUBJECTIVE: Feeling nauseated and unable to tolerate his oral ciprofloxacin. Does not have abdominal pain, but has a persistent headache, retro-orbital, throbbing. No dyspnea or cough. Voiding without difficulty. OBJECTIVE: VITAL SIGNS: Temperature is normal and BP 150/89. LUNGS: Clear. HEART: S1 and S2, regular rate. ABDOMEN: Soft. No tenderness in the abdominal area. EXTREMITIES: Moves extremities equally. LABORATORY DATA: White cell count 4.1, hemoglobin 11, platelets 190, with 62% neutrophils. Creatinine 0.55, bilirubin 4.5, AST 84. ASSESSMENT AND DISCUSSION: Chronic hepatitis C, liver cirrhosis, untreated. Portal hypertension, obstructive jaundice secondary to biliary duct stones, stent placement elsewhere with lack of removal since the patient never went back for the followup visit in [facility]. Now the stent has been removed. He had an Escherichia coli, which is resistant to quinolones and this is from the blood culture. I think the Klebsiella in the urine is not significant and does not require treatment. We will go ahead and switch him back to Rocephin, and discontinue ciprofloxacin, which he cannot tolerate and it is not effective against the organism isolated from the blood stream. The duration of therapy is probably short, not more than 5 or 7 days. Job ID: [id number]
--- NOTE | 2020-08-12 14:29 | PDOC.HOSPP ---
- Subjective Encounter Date: 08/12/20 Subjective: No new complaints. - Objective Vital Signs & Weight: Vital Signs (12 hours) Temp Pulse Resp BP Pulse Ox 08/12/20 08:45 98.6 F 69 18 152/89 H 94 L 08/12/20 08:00 94 L Weight Admit Weight 203 lb 1.6 oz Weight 214 lb 8 oz I&O: 08/11/20 08/12/20 08/13/20 06:59 06:59 06:59 Intake Total 837 1147 Balance 837 1147 Result Diagrams: 08/09/20 05:33 08/10/20 05:04 Hospitalist ROS - Medication Medications: Active Medications Generic Name Dose Route Start Last Admin Trade Name Freq PRN Reason Stop Dose Admin Famotidine 20 mg 08/08/20 09:00 08/12/20 12:51 Famotidine 20 Mg Tab PO Not Given BID WILL Fluoxetine HCl 20 mg 08/02/20 09:00 08/12/20 12:51 Fluoxetine Hcl 20 Mg Cap PO Not Given DAILY WILL Furosemide 20 mg 08/05/20 09:00 08/12/20 12:51 Furosemide 20 Mg Tab PO Not Given DAILY WILL Iron/Minerals/Multivitamins 1 tab 08/01/20 21:00 08/11/20 20:11 Multivitamin W/ Minerals 1 Tab PO Not Given HS WILL Lactulose 20 gm 08/01/20 21:00 08/12/20 12:51 Lactulose 20 Gm/30 Ml Udcup PO Not Given BID WILL Ondansetron HCl 4 mg 08/08/20 07:59 08/08/20 10:23 Ondansetron Odt 4 Mg Tab PO 4 mg Q6H PRN Administration Nausea/Vomiting - Exam General Appearance: awake alert ENT: normocephalic atraumatic Neck: supple, no JVD Respiratory: normal chest expansion, no tachypnea Extremities: no cyanosis, no clubbing, no edema Neurological: cranial nerve grossly intact, no focal deficits Hosp A/P - Plan Hosp A/P (1) Acute cholangitis Code(s): K83.09 - OTHER CHOLANGITIS Status: Resolved (2) Fall Code(s): W19.XXXA - UNSPECIFIED FALL, INITIAL ENCOUNTER Status: Acute Qualifiers: Encounter type: initial encounter Qualified Code(s): W19.XXXA - Unspecified fall, initial encounter (3) Normal pressure hydrocephalus Code(s): G91.2 - (IDIOPATHIC) NORMAL PRESSURE HYDROCEPHALUS Status: Chronic (4) Rib fractures Code(s): S22.39XA - FRACTURE OF ONE RIB, UNSP SIDE, INIT FOR CLOS FX Status: Chronic Qualifiers: Encounter type: subsequent encounter (5) SAH (subarachnoid hemorrhage) Code(s): I60.9 - NONTRAUMATIC SUBARACHNOID HEMORRHAGE, UNSPECIFIED Status: Acute (6) Sepsis with metabolic encephalopathy Code(s): A41.9 - SEPSIS, UNSPECIFIED ORGANISM; R65.20 - SEVERE SEPSIS WITHOUT SEPTIC SHOCK; G93.41 - METABOLIC ENCEPHALOPATHY Status: Resolved (7) Hep C w/o coma, chronic Code(s): B18.2 - CHRONIC VIRAL HEPATITIS C Status: Chronic (8) Hepatic cirrhosis Code(s): K74.60 - UNSPECIFIED CIRRHOSIS OF LIVER Status: Chronic Qualifiers: Ascites presence: with ascites (9) Hypoalbuminemia due to protein-calorie malnutrition Code(s): E88.09 - OTH DISORDERS OF PLASMA-PROTEIN METABOLISM, NEC; E46 - UNSPECIFIED PROTEIN-CALORIE MALNUTRITION Status: Chronic (10) Hypokalemia Code(s): E87.6 - HYPOKALEMIA Status: Resolved - Plan The patient was seen and examined. She has no new complaints today. No signs of sepsis. Continue oral antibiotics. Pending placement.
[2020-08-12] MEDS: cefTRIAXone\\ROCEPHIN 2 GM in Sodium Chloride 0.9% 100 ML IVPB SCH (15:02)
[2020-08-12] MEDS: Multivitamin W/ Minerals 1 TAB PO SCH (20:22)
[2020-08-13] MEDS: Famotidine 20 MG TAB PO SCH ×2 (08:12→20:07)
[2020-08-13] MEDS: Furosemide 20 MG TAB PO SCH (08:12)
[2020-08-13] MEDS: FLUoxetine HCl 20 MG CAP PO SCH (08:12)
[2020-08-13] MEDS ORDERED: Morphine 2 MG/ML VIAL SLOW IVP SCH (08:30)
--- NOTE | 2020-08-13 12:10 | PDOC.HOSPP ---
- Subjective Encounter Date: 08/13/20 Subjective: No new complaints. - Objective Vital Signs & Weight: Vital Signs (12 hours) Temp Pulse Resp BP Pulse Ox 08/13/20 08:08 99 08/13/20 07:56 98.4 F 69 18 148/60 H 99 Weight Admit Weight 203 lb 1.6 oz Weight 214 lb 8 oz I&O: 08/12/20 08/13/20 08/14/20 06:59 06:59 06:59 Intake Total 1147 1080 Balance 1147 1080 Result Diagrams: 08/09/20 05:33 08/10/20 05:04 Hospitalist ROS - Medication Medications: Active Medications Generic Name Dose Route Start Last Admin Trade Name Freq PRN Reason Stop Dose Admin Famotidine 20 mg 08/08/20 09:00 08/13/20 08:12 Famotidine 20 Mg Tab PO Not Given BID WILL Fluoxetine HCl 20 mg 08/02/20 09:00 08/13/20 08:12 Fluoxetine Hcl 20 Mg Cap PO 20 mg DAILY WILL Administration Furosemide 20 mg 08/05/20 09:00 08/13/20 08:12 Furosemide 20 Mg Tab PO 20 mg DAILY WILL Administration Ceftriaxone Sodium 2 gm/ 100 mls @ 200 mls/hr 08/12/20 13:30 08/12/20 15:02 Sodium Chloride IVPB 100 mls Q24HR WILL Administration Iron/Minerals/Multivitamins 1 tab 08/01/20 21:00 08/12/20 20:22 Multivitamin W/ Minerals 1 Tab PO Not Given HS WILL Lactulose 20 gm 08/01/20 21:00 08/13/20 08:12 Lactulose 20 Gm/30 Ml Udcup PO Not Given BID WILL Ondansetron HCl 4 mg 08/08/20 07:59 08/08/20 10:23 Ondansetron Odt 4 Mg Tab PO 4 mg Q6H PRN Administration Nausea/Vomiting Sodium Chloride 10 ml 07/30/20 22:21 08/13/20 08:13 Flush - Normal Saline 10 Ml Syringe IVF 10 ml Q12HR PRN Administration Saline Flush - Exam General Appearance: awake alert ENT: normocephalic atraumatic Neck: supple, no JVD Respiratory: normal chest expansion, no tachypnea Extremities: no cyanosis, no clubbing Neurological: cranial nerve grossly intact, no focal deficits Hosp A/P - Plan Hosp A/P (1) Acute cholangitis Code(s): K83.09 - OTHER CHOLANGITIS Status: Resolved (2) Fall Code(s): W19.XXXA - UNSPECIFIED FALL, INITIAL ENCOUNTER Status: Acute Qualifiers: Encounter type: initial encounter Qualified Code(s): W19.XXXA - Unspecified fall, initial encounter (3) Normal pressure hydrocephalus Code(s): G91.2 - (IDIOPATHIC) NORMAL PRESSURE HYDROCEPHALUS Status: Chronic (4) Rib fractures Code(s): S22.39XA - FRACTURE OF ONE RIB, UNSP SIDE, INIT FOR CLOS FX Status: Chronic Qualifiers: Encounter type: subsequent encounter (5) SAH (subarachnoid hemorrhage) Code(s): I60.9 - NONTRAUMATIC SUBARACHNOID HEMORRHAGE, UNSPECIFIED Status: Acute (6) Sepsis with metabolic encephalopathy Code(s): A41.9 - SEPSIS, UNSPECIFIED ORGANISM; R65.20 - SEVERE SEPSIS WITHOUT SEPTIC SHOCK; G93.41 - METABOLIC ENCEPHALOPATHY Status: Resolved (7) Hep C w/o coma, chronic Code(s): B18.2 - CHRONIC VIRAL HEPATITIS C Status: Chronic (8) Hepatic cirrhosis Code(s): K74.60 - UNSPECIFIED CIRRHOSIS OF LIVER Status: Chronic Qualifiers: Ascites presence: with ascites (9) Hypoalbuminemia due to protein-calorie malnutrition Code(s): E88.09 - OTH DISORDERS OF PLASMA-PROTEIN METABOLISM, NEC; E46 - UNSPECIFIED PROTEIN-CALORIE MALNUTRITION Status: Chronic (10) Hypokalemia Code(s): E87.6 - HYPOKALEMIA Status: Resolved - Plan The patient was seen and examined. No new events since yesterday. Vital signs are stable. No signs of sepsis. Final culture showing no growth. Continue oral antibiotics. Pending placement.
[2020-08-13] MEDS: cefTRIAXone\\ROCEPHIN 2 GM in Sodium Chloride 0.9% 100 ML IVPB SCH (13:09)
[2020-08-13] MEDS: Ondansetron PF 4 MG/2 ML Vial IVP PRN (18:23)
[2020-08-13] MEDS: Multivitamin W/ Minerals 1 TAB PO SCH (20:09)
[2020-08-14] MEDS: traMADol HCl 50 MG TAB PO PRN (02:37)
[2020-08-14] MEDS: Ondansetron PF 4 MG/2 ML Vial IVP PRN (02:37)
[2020-08-14 05:46] LABS: #Basophils 0.1 thou/uL (0.0-0.2); #Eosinphils 0.2 thou/uL (0.0-0.7); #Lymphocytes 1.3 thou/uL (1.20-3.40); #Monocytes 0.7 thou/uL (0.11-0.59); #Neutrophils 2.9 thou/uL (1.40-6.50); %Basophils 1.7 % (0.0-1.0); %Eosinophils 3.5 % (0.0-10.0); %Lymphocytes 24.9 % (21.0-51.0); %Monocytes 13.3 % (0.0-10.0); %Neutrophils 56.6 % (42.0-75.0); Hemoglobin 11.2 g/dL (14.0-18.0); Mean Corpuscular HGB CONC 31.8 g/dL (32.0-36.0); Mean Corpuscular Hemoglobin 28.7 pg (27.0-31.0); Mean Corpuscular Volume 90.3 fL (78.0-98.0); Mean Platelet Volume 7.2 fL (7.4-10.4); Platelet Count 198 thou/uL (130-400); RBC Distribution Width 17.8 % (11.5-14.5); Red Blood Cell (RBC) Count 3.92 mill/uL (4.70-6.10); White Blood Cell (WBC) Count 5.2 thou/uL (4.8-10.8)
[2020-08-14 06:09] LABS: Anion Gap 8 mmol/L (10-20); BUN (Urea Nitrogen) 5 mg/dL (8.4-25.7); Calc. Creatinine Clearance 192 mL/min (70-130); Calcium 7.4 mg/dL (7.8-10.44); Carbon Dioxide 25 mmol/L (22-29); Chloride 106 mmol/L (98-107); Estimated GFR-MDRD Greater than 90; Glucose 95 mg/dL (70-105); Potassium 3.1 mmol/L (3.5-5.1); Sodium 136 mmol/L (136-145)
[2020-08-14] MEDS: FLUoxetine HCl 20 MG CAP PO SCH (09:11)
[2020-08-14] MEDS: Famotidine 20 MG TAB PO SCH ×2 (09:11→20:06)
[2020-08-14] MEDS: Furosemide 20 MG TAB PO SCH (09:11)
--- NOTE | 2020-08-14 13:06 | PDOC.HOSPP ---
- Subjective Encounter Date: 08/14/20 Encounter Time: 09:50 Subjective: He feels still nauseated. He is not able to keep anything by mouth. We will switch his Zofran from p.o. to IV. His orthostatic blood pressures were negative - Objective Vital Signs & Weight: Vital Signs (12 hours) Temp Pulse Resp BP BP BP BP 08/14/20 10:42 138/83 136/84 123/83 08/14/20 06:57 98.2 F 81 19 148/67 H BP BP Pulse Ox 08/14/20 10:42 08/14/20 06:57 142/76 H 143/87 H 96 Weight Admit Weight 203 lb 1.6 oz Weight 214 lb 8 oz I&O: 08/13/20 08/14/20 08/15/20 06:59 06:59 06:59 Intake Total 1080 1580 Output Total 200 Balance 1080 1380 Result Diagrams: 08/14/20 05:13 08/14/20 05:13 Hospitalist ROS - Medication Medications: Active Medications Generic Name Dose Route Start Last Admin Trade Name Freq PRN Reason Stop Dose Admin Famotidine 20 mg 08/08/20 09:00 08/14/20 09:11 Famotidine 20 Mg Tab PO Not Given BID WILL Fluoxetine HCl 20 mg 08/02/20 09:00 08/14/20 09:11 Fluoxetine Hcl 20 Mg Cap PO Not Given DAILY WILL Furosemide 20 mg 08/05/20 09:00 08/14/20 09:11 Furosemide 20 Mg Tab PO Not Given DAILY WILL Ceftriaxone Sodium 2 gm/ 100 mls @ 200 mls/hr 08/12/20 13:30 08/13/20 13:09 Sodium Chloride IVPB 100 mls Q24HR WILL Administration Iron/Minerals/Multivitamins 1 tab 08/01/20 21:00 08/13/20 20:09 Multivitamin W/ Minerals 1 Tab PO Not Given HS WILL Lactulose 20 gm 08/01/20 21:00 08/14/20 09:11 Lactulose 20 Gm/30 Ml Udcup PO Not Given BID WILL Ondansetron HCl 4 mg 08/08/20 07:59 08/08/20 10:23 Ondansetron Odt 4 Mg Tab PO 4 mg Q6H PRN Administration Nausea/Vomiting Ondansetron HCl 4 mg 08/08/20 07:59 08/14/20 02:37 Ondansetron Pf 4 Mg/2 Ml Vial IVP 4 mg Q6H PRN Administration Nausea/Vomiting Sodium Chloride 10 ml 07/30/20 22:21 08/13/20 08:13 Flush - Normal Saline 10 Ml Syringe IVF 10 ml Q12HR PRN Administration Saline Flush Sodium Chloride 10 ml 07/31/20 15:06 08/13/20 13:10 Flush - Normal Saline 10 Ml Syringe IVF 10 ml PRN PRN Administration Saline Flush Tramadol HCl 50 mg 08/13/20 15:22 08/14/20 02:37 Tramadol Hcl 50 Mg Tab PO 50 mg Q6H PRN Administration Pain/MCCRARY - Exam General Appearance: NAD, awake alert, ill appearing Eye: PERRL ENT: normocephalic atraumatic Neck: supple Heart: RRR, no rubs Respiratory: CTAB, normal chest expansion Gastrointestinal: soft, normal bowel sounds Psychiatric: A&O x 3 Hosp A/P - Plan (1) Acute cholangitis Code(s): K83.09 - OTHER CHOLANGITIS Status: Resolved (2) Fall Code(s): W19.XXXA - UNSPECIFIED FALL, INITIAL ENCOUNTER Status: Acute Qualifiers: Encounter type: initial encounter Qualified Code(s): W19.XXXA - Unspecified fall, initial encounter (3) Normal pressure hydrocephalus Code(s): G91.2 - (IDIOPATHIC) NORMAL PRESSURE HYDROCEPHALUS Status: Chronic (4) Rib fractures Code(s): S22.39XA - FRACTURE OF ONE RIB, UNSP SIDE, INIT FOR CLOS FX Status: Chronic Qualifiers: Encounter type: subsequent encounter (5) SAH (subarachnoid hemorrhage) Code(s): I60.9 - NONTRAUMATIC SUBARACHNOID HEMORRHAGE, UNSPECIFIED Status: Acute (6) Sepsis with metabolic encephalopathy Code(s): A41.9 - SEPSIS, UNSPECIFIED ORGANISM; R65.20 - SEVERE SEPSIS WITHOUT SEPTIC SHOCK; G93.41 - METABOLIC ENCEPHALOPATHY Status: Resolved (7) Hep C w/o coma, chronic Code(s): B18.2 - CHRONIC VIRAL HEPATITIS C Status: Chronic (8) Hepatic cirrhosis Code(s): K74.60 - UNSPECIFIED CIRRHOSIS OF LIVER Status: Chronic Qualifiers: Ascites presence: with ascites (9) Hypoalbuminemia due to protein-calorie malnutrition Code(s): E88.09 - OTH DISORDERS OF PLASMA-PROTEIN METABOLISM, NEC; E46 - UNSPECIFIED PROTEIN-CALORIE MALNUTRITION Status: Chronic (10) Hypokalemia Code(s): E87.6 - HYPOKALEMIA Status: Resolved Final culture showing no growth. Pending placement. Intractable nausea -Will keep him on IV Zofran for now. Since he is quite nauseated I will not give him any p.o. antibiotix for today . Continue with the ceftriaxone daily. Pending placement.
[2020-08-14] MEDS ORDERED: Prochlorperazine Maleate 5 MG TAB PO SCH (13:15)
[2020-08-14] MEDS: cefTRIAXone\\ROCEPHIN 2 GM in Sodium Chloride 0.9% 100 ML IVPB SCH (14:24)
[2020-08-14] MEDS: Ondansetron PF 4 MG/2 ML Vial IVP SCH ×2 (17:12→21:45)
[2020-08-14] MEDS: Multivitamin W/ Minerals 1 TAB PO SCH (20:07)
[2020-08-15] MEDS: Ondansetron PF 4 MG/2 ML Vial IVP SCH ×6 (00:23→21:19)
[2020-08-15] MEDS: Famotidine 20 MG TAB PO SCH ×2 (08:52→21:19)
[2020-08-15] MEDS: FLUoxetine HCl 20 MG CAP PO SCH (08:53)
[2020-08-15] MEDS: Furosemide 20 MG TAB PO SCH (08:53)
--- NOTE | 2020-08-15 11:54 | PDOC.HOSPP ---
- Subjective Encounter Date: 08/15/20 Encounter Time: 09:30 Subjective: Patient is asleep. On awakening he is able to express that he is not nauseated. He is able to swallow his p.o. intake this morning. He did had a bowel movement last evening. Abdominal exam quite benign and it is soft with good bowel sounds. - Objective Vital Signs & Weight: Vital Signs (12 hours) Temp Pulse Resp BP Pulse Ox 08/15/20 07:07 98.7 F 90 18 150/88 H 97 Weight Admit Weight 203 lb 1.6 oz Weight 214 lb 8 oz I&O: 08/14/20 08/15/20 08/16/20 06:59 06:59 05:59 Intake Total 1580 900 Output Total 200 Balance 1380 900 Result Diagrams: 08/14/20 05:13 08/14/20 05:13 Hospitalist ROS - Medication Medications: Active Medications Generic Name Dose Route Start Last Admin Trade Name Freq PRN Reason Stop Dose Admin Famotidine 20 mg 08/08/20 09:00 08/15/20 08:52 Famotidine 20 Mg Tab PO Not Given BID WILL Fluoxetine HCl 20 mg 08/02/20 09:00 08/15/20 08:53 Fluoxetine Hcl 20 Mg Cap PO Not Given DAILY WILL Furosemide 20 mg 08/05/20 09:00 08/15/20 08:53 Furosemide 20 Mg Tab PO Not Given DAILY WILL Ceftriaxone Sodium 2 gm/ 100 mls @ 200 mls/hr 08/12/20 13:30 08/14/20 14:24 Sodium Chloride IVPB Not Given Q24HR WILL Iron/Minerals/Multivitamins 1 tab 08/01/20 21:00 08/14/20 20:07 Multivitamin W/ Minerals 1 Tab PO Not Given HS WILL Lactulose 20 gm 08/01/20 21:00 08/15/20 08:53 Lactulose 20 Gm/30 Ml Udcup PO Not Given BID WILL Ondansetron HCl 4 mg 08/14/20 17:00 08/15/20 08:53 Ondansetron Pf 4 Mg/2 Ml Vial IVP Not Given Q4HR WILL Sodium Chloride 10 ml 07/30/20 22:21 08/13/20 08:13 Flush - Normal Saline 10 Ml Syringe IVF 10 ml Q12HR PRN Administration Saline Flush Sodium Chloride 10 ml 07/31/20 15:06 08/13/20 13:10 Flush - Normal Saline 10 Ml Syringe IVF 10 ml PRN PRN Administration Saline Flush Tramadol HCl 50 mg 08/13/20 15:22 08/14/20 02:37 Tramadol Hcl 50 Mg Tab PO 50 mg Q6H PRN Administration Pain/MCRCARY - Exam General Appearance: awake alert Eye: PERRL ENT: normocephalic atraumatic Neck: supple Heart: RRR Respiratory: CTAB, normal chest expansion Gastrointestinal: soft, normal bowel sounds Extremities: 1+ LE edema Neurological: no focal deficits Psychiatric: A&O x 3 Hosp A/P - Plan (1) Acute cholangitis Code(s): K83.09 - OTHER CHOLANGITIS Status: Resolved (2) Fall Code(s): W19.XXXA - UNSPECIFIED FALL, INITIAL ENCOUNTER Status: Acute Qualifiers: Encounter type: initial encounter Qualified Code(s): W19.XXXA - Unspecified fall, initial encounter (3) Normal pressure hydrocephalus Code(s): G91.2 - (IDIOPATHIC) NORMAL PRESSURE HYDROCEPHALUS Status: Chronic (4) Rib fractures Code(s): S22.39XA - FRACTURE OF ONE RIB, UNSP SIDE, INIT FOR CLOS FX Status: Chronic Qualifiers: Encounter type: subsequent encounter (5) SAH (subarachnoid hemorrhage) Code(s): I60.9 - NONTRAUMATIC SUBARACHNOID HEMORRHAGE, UNSPECIFIED Status: Acute (6) Sepsis with metabolic encephalopathy Code(s): A41.9 - SEPSIS, UNSPECIFIED ORGANISM; R65.20 - SEVERE SEPSIS WITHOUT SEPTIC SHOCK; G93.41 - METABOLIC ENCEPHALOPATHY Status: Resolved (7) Hep C w/o coma, chronic Code(s): B18.2 - CHRONIC VIRAL HEPATITIS C Status: Chronic (8) Hepatic cirrhosis Code(s): K74.60 - UNSPECIFIED CIRRHOSIS OF LIVER Status: Chronic Qualifiers: Ascites presence: with ascites (9) Hypoalbuminemia due to protein-calorie malnutrition Code(s): E88.09 - OTH DISORDERS OF PLASMA-PROTEIN METABOLISM, NEC; E46 - UNSPECIFIED PROTEIN-CALORIE MALNUTRITION Status: Chronic (10) Hypokalemia Code(s): E87.6 - HYPOKALEMIA Status: Resolved Final culture showing no growth. Pending placement. Intractable nausea -Will keep him on IV Zofran for now. Since he is quite nauseated I will not give him any p.o. antibiotix . Continue with the ceftriaxone daily. -Nausea better -Switch to Augmentin Check the electrolytes and replace the mag and potassium as needed. Pending placement. -No change in the medical management.
[2020-08-15] MEDS: cefTRIAXone\\ROCEPHIN 2 GM in Sodium Chloride 0.9% 100 ML IVPB SCH (13:02)
[2020-08-15] MEDS: Multivitamin W/ Minerals 1 TAB PO SCH (21:19)
[2020-08-16] MEDS: Ondansetron PF 4 MG/2 ML Vial IVP SCH ×6 (00:12→20:41)
[2020-08-16 07:10] LABS: Anion Gap 9 mmol/L (10-20); BUN (Urea Nitrogen) 6 mg/dL (8.4-25.7); Calc. Creatinine Clearance 189 mL/min (70-130); Calcium 7.4 mg/dL (7.8-10.44); Carbon Dioxide 24 mmol/L (22-29); Chloride 106 mmol/L (98-107); Estimated GFR-MDRD Greater than 90; Glucose 75 mg/dL (70-105); Potassium 3.7 mmol/L (3.5-5.1); Sodium 135 mmol/L (136-145)
[2020-08-16] MEDS ORDERED: Calcium Gluc 4.6 MEQ/10 ML (100 MG/ML) SLOW IVP SCH (09:30)
[2020-08-16] MEDS: Furosemide 20 MG TAB PO SCH (11:00)
[2020-08-16] MEDS: FLUoxetine HCl 20 MG CAP PO SCH (11:00)
[2020-08-16] MEDS: Famotidine 20 MG TAB PO SCH ×2 (11:00→20:41)
--- NOTE | 2020-08-16 12:59 | PDOC.HOSPP ---
- Subjective Encounter Date: 08/16/20 Encounter Time: 09:10 Subjective: Patient is doing well today. He has no nausea. Able to tolerate his p.o. intake he had a bowel movement. He getting ready to go for shower. Discussed with RN. No acute events overnight - Objective Vital Signs & Weight: Vital Signs (12 hours) Temp Pulse Resp BP Pulse Ox 08/16/20 08:00 96 08/16/20 07:14 97.6 F 73 16 146/89 H 96 Weight Admit Weight 203 lb 1.6 oz Weight 214 lb 8 oz I&O: 08/15/20 08/16/20 08/17/20 07:59 06:59 06:59 Intake Total Balance Result Diagrams: 08/14/20 05:13 08/16/20 05:57 Hospitalist ROS - Medication Medications: Active Medications Generic Name Dose Route Start Last Admin Trade Name Freq PRN Reason Stop Dose Admin Famotidine 20 mg 08/08/20 09:00 08/16/20 11:00 Famotidine 20 Mg Tab PO 20 mg BID WILL Administration Fluoxetine HCl 20 mg 08/02/20 09:00 08/16/20 11:00 Fluoxetine Hcl 20 Mg Cap PO 20 mg DAILY WILL Administration Furosemide 20 mg 08/05/20 09:00 08/16/20 11:00 Furosemide 20 Mg Tab PO 20 mg DAILY WILL Administration Ceftriaxone Sodium 2 gm/ 100 mls @ 200 mls/hr 08/12/20 13:30 08/15/20 13:02 Sodium Chloride IVPB 100 mls Q24HR WILL Administration Iron/Minerals/Multivitamins 1 tab 08/01/20 21:00 08/15/20 21:19 Multivitamin W/ Minerals 1 Tab PO Not Given HS WILL Lactulose 20 gm 08/01/20 21:00 08/16/20 11:01 Lactulose 20 Gm/30 Ml Udcup PO Not Given BID WILL Ondansetron HCl 4 mg 08/14/20 17:00 08/16/20 11:00 Ondansetron Pf 4 Mg/2 Ml Vial IVP 4 mg Q4HR WILL Administration Sodium Chloride 10 ml 07/30/20 22:21 08/13/20 08:13 Flush - Normal Saline 10 Ml Syringe IVF 10 ml Q12HR PRN Administration Saline Flush Sodium Chloride 10 ml 07/31/20 15:06 08/13/20 13:10 Flush - Normal Saline 10 Ml Syringe IVF 10 ml PRN PRN Administration Saline Flush Tramadol HCl 50 mg 08/13/20 15:22 08/14/20 02:37 Tramadol Hcl 50 Mg Tab PO 50 mg Q6H PRN Administration Pain/MCCRARY - Exam General Appearance: NAD, awake alert Eye: PERRL ENT: normocephalic atraumatic Neck: supple Heart: RRR, normal peripheral pulses Respiratory: CTAB, normal chest expansion Gastrointestinal: soft, normal bowel sounds Neurological: no focal deficits Psychiatric: A&O x 3 Hosp A/P - Plan (1) Acute cholangitis Code(s): K83.09 - OTHER CHOLANGITIS Status: Resolved (2) Fall Code(s): W19.XXXA - UNSPECIFIED FALL, INITIAL ENCOUNTER Status: Acute Qualifiers: Encounter type: initial encounter Qualified Code(s): W19.XXXA - Unspecified fall, initial encounter (3) Normal pressure hydrocephalus Code(s): G91.2 - (IDIOPATHIC) NORMAL PRESSURE HYDROCEPHALUS Status: Chronic (4) Rib fractures Code(s): S22.39XA - FRACTURE OF ONE RIB, UNSP SIDE, INIT FOR CLOS FX Status: Chronic Qualifiers: Encounter type: subsequent encounter (5) SAH (subarachnoid hemorrhage) Code(s): I60.9 - NONTRAUMATIC SUBARACHNOID HEMORRHAGE, UNSPECIFIED Status: Acute (6) Sepsis with metabolic encephalopathy Code(s): A41.9 - SEPSIS, UNSPECIFIED ORGANISM; R65.20 - SEVERE SEPSIS WITHOUT SEPTIC SHOCK; G93.41 - METABOLIC ENCEPHALOPATHY Status: Resolved (7) Hep C w/o coma, chronic Code(s): B18.2 - CHRONIC VIRAL HEPATITIS C Status: Chronic (8) Hepatic cirrhosis Code(s): K74.60 - UNSPECIFIED CIRRHOSIS OF LIVER Status: Chronic Qualifiers: Ascites presence: with ascites (9) Hypoalbuminemia due to protein-calorie malnutrition Code(s): E88.09 - OTH DISORDERS OF PLASMA-PROTEIN METABOLISM, NEC; E46 - UNSPECIFIED PROTEIN-CALORIE MALNUTRITION Status: Chronic (10) Hypokalemia Code(s): E87.6 - HYPOKALEMIA Status: Resolved -Nausea better -Switched to Augmentin Check the electrolytes and replace the mag and potassium as needed. Pending placement. -No change in the medical management.
[2020-08-16] MEDS: cefTRIAXone\\ROCEPHIN 2 GM in Sodium Chloride 0.9% 100 ML IVPB SCH (13:46)
[2020-08-16] MEDS: traMADol HCl 50 MG TAB PO PRN (16:53)
[2020-08-16] MEDS: Multivitamin W/ Minerals 1 TAB PO SCH (20:41)
[2020-08-17] MEDS: Ondansetron PF 4 MG/2 ML Vial IVP SCH ×7 (02:20→21:11)
[2020-08-17] MEDS ORDERED: Spironolactone 25 MG TAB PO SCH (09:00)
[2020-08-17] MEDS: Famotidine 20 MG TAB PO SCH ×2 (09:05→21:11)
[2020-08-17] MEDS: Furosemide 20 MG TAB PO SCH (09:05)
[2020-08-17] MEDS: FLUoxetine HCl 20 MG CAP PO SCH (09:05)
--- NOTE | 2020-08-17 12:58 | PDOC.HOSPP ---
- Subjective Encounter Date: 08/17/20 Encounter Time: 09:00 Subjective: Patient is resting well. He has no acute complaints. Tolerating his p.o. intake and ambulating. Mentation at baseline. - Objective Vital Signs & Weight: Vital Signs (12 hours) Temp Pulse Resp BP Pulse Ox 08/17/20 07:35 98.2 F 67 18 149/81 H 94 L Weight Admit Weight 203 lb 1.6 oz Weight 214 lb 8 oz I&O: 08/16/20 08/17/20 08/18/20 06:59 06:59 06:59 Intake Total 830 Balance 830 Result Diagrams: 08/14/20 05:13 08/16/20 05:57 Hospitalist ROS - Medication Medications: Active Medications Generic Name Dose Route Start Last Admin Trade Name Freq PRN Reason Stop Dose Admin Famotidine 20 mg 08/08/20 09:00 08/17/20 09:05 Famotidine 20 Mg Tab PO Not Given BID WILL Fluoxetine HCl 20 mg 08/02/20 09:00 08/17/20 09:05 Fluoxetine Hcl 20 Mg Cap PO 20 mg DAILY WILL Administration Furosemide 20 mg 08/05/20 09:00 08/17/20 09:05 Furosemide 20 Mg Tab PO 20 mg DAILY WILL Administration Iron/Minerals/Multivitamins 1 tab 08/01/20 21:00 08/16/20 20:41 Multivitamin W/ Minerals 1 Tab PO 1 tab HS WILL Administration Lactulose 20 gm 08/01/20 21:00 08/17/20 09:05 Lactulose 20 Gm/30 Ml Udcup PO 20 gm BID WILL Administration Ondansetron HCl 4 mg 08/14/20 17:00 08/17/20 12:43 Ondansetron Pf 4 Mg/2 Ml Vial IVP 4 mg Q4HR WILL Administration Sodium Chloride 10 ml 07/30/20 22:21 08/16/20 20:42 Flush - Normal Saline 10 Ml Syringe IVF 10 ml Q12HR PRN Administration Saline Flush Sodium Chloride 10 ml 07/31/20 15:06 08/17/20 05:42 Flush - Normal Saline 10 Ml Syringe IVF 10 ml PRN PRN Administration Saline Flush Tramadol HCl 50 mg 08/13/20 15:22 08/16/20 16:53 Tramadol Hcl 50 Mg Tab PO 50 mg Q6H PRN Administration Pain/MCCRARY - Exam General Appearance: NAD, awake alert Eye: PERRL ENT: normocephalic atraumatic Neck: supple Heart: RRR, normal peripheral pulses Respiratory: CTAB, normal chest expansion Gastrointestinal: soft, normal bowel sounds Neurological: no focal deficits Psychiatric: A&O x 3 Hosp A/P - Plan (1) Acute cholangitis Code(s): K83.09 - OTHER CHOLANGITIS Status: Resolved (2) Fall Code(s): W19.XXXA - UNSPECIFIED FALL, INITIAL ENCOUNTER Status: Acute Qualifiers: Encounter type: initial encounter Qualified Code(s): W19.XXXA - Unspecified fall, initial encounter (3) Normal pressure hydrocephalus Code(s): G91.2 - (IDIOPATHIC) NORMAL PRESSURE HYDROCEPHALUS Status: Chronic (4) Rib fractures Code(s): S22.39XA - FRACTURE OF ONE RIB, UNSP SIDE, INIT FOR CLOS FX Status: Chronic Qualifiers: Encounter type: subsequent encounter (5) SAH (subarachnoid hemorrhage) Code(s): I60.9 - NONTRAUMATIC SUBARACHNOID HEMORRHAGE, UNSPECIFIED Status: Acute (6) Sepsis with metabolic encephalopathy Code(s): A41.9 - SEPSIS, UNSPECIFIED ORGANISM; R65.20 - SEVERE SEPSIS WITHOUT SEPTIC SHOCK; G93.41 - METABOLIC ENCEPHALOPATHY Status: Resolved (7) Hep C w/o coma, chronic Code(s): B18.2 - CHRONIC VIRAL HEPATITIS C Status: Chronic (8) Hepatic cirrhosis Code(s): K74.60 - UNSPECIFIED CIRRHOSIS OF LIVER Status: Chronic Qualifiers: Ascites presence: with ascites (9) Hypoalbuminemia due to protein-calorie malnutrition Code(s): E88.09 - OTH DISORDERS OF PLASMA-PROTEIN METABOLISM, NEC; E46 - UNSPECIFIED PROTEIN-CALORIE MALNUTRITION Status: Chronic (10) Hypokalemia Code(s): E87.6 - HYPOKALEMIA Status: Resolved -Nausea better -Switched to Augmentin Check the electrolytes and replace the mag and potassium as needed. -No change in the medical management. I talked to the nurse case management today. Pending placement.
[2020-08-17] MEDS: Multivitamin W/ Minerals 1 TAB PO SCH (21:11)
[2020-08-18] MEDS: Ondansetron PF 4 MG/2 ML Vial IVP SCH ×5 (01:55→17:26)
[2020-08-18] MEDS: FLUoxetine HCl 20 MG CAP PO SCH (07:58)
[2020-08-18] MEDS: Furosemide 20 MG TAB PO SCH (07:58)
[2020-08-18] MEDS ORDERED: Spironolactone 25 MG TAB PO SCH (08:00)
[2020-08-18] MEDS: Famotidine 20 MG TAB PO SCH (08:00)
[2020-08-18 11:51] LABS: SARS-CoV-2 NAA Rapid Test Not Detected (NotDetected)
--- NOTE | 2020-08-18 12:23 | PDOC.HOSPP ---
- Subjective Encounter Date: 08/18/20 Encounter Time: 09:40 Subjective: Hogan remained stable I talked to him at length. There is a [facility] I am waiting to hear from the pillowcase cleaner. He is clinically stable no acute events noted overnight. - Objective Vital Signs & Weight: Vital Signs (12 hours) Temp Pulse Resp BP Pulse Ox 08/18/20 08:14 98.3 F 75 18 148/71 H 97 08/18/20 08:00 97 Weight Admit Weight 203 lb 1.6 oz Weight 214 lb 8 oz I&O: 08/17/20 08/18/20 08/19/20 06:59 06:59 06:59 Intake Total 830 905 Balance 830 905 Result Diagrams: 08/14/20 05:13 08/16/20 05:57 Hospitalist ROS - Medication Medications: Active Medications Generic Name Dose Route Start Last Admin Trade Name Freq PRN Reason Stop Dose Admin Famotidine 20 mg 08/08/20 09:00 08/18/20 08:00 Famotidine 20 Mg Tab PO Not Given BID WILL Fluoxetine HCl 20 mg 08/02/20 09:00 08/18/20 07:58 Fluoxetine Hcl 20 Mg Cap PO 20 mg DAILY WILL Administration Furosemide 20 mg 08/05/20 09:00 08/18/20 07:58 Furosemide 20 Mg Tab PO 20 mg DAILY WILL Administration Iron/Minerals/Multivitamins 1 tab 08/01/20 21:00 08/17/20 21:11 Multivitamin W/ Minerals 1 Tab PO 1 tab HS WILL Administration Lactulose 20 gm 08/01/20 21:00 08/18/20 08:00 Lactulose 20 Gm/30 Ml Udcup PO Not Given BID WILL Ondansetron HCl 4 mg 08/14/20 17:00 08/18/20 08:00 Ondansetron Pf 4 Mg/2 Ml Vial IVP 4 mg Q4HR WILL Administration Sodium Chloride 10 ml 07/30/20 22:21 08/16/20 20:42 Flush - Normal Saline 10 Ml Syringe IVF 10 ml Q12HR PRN Administration Saline Flush Sodium Chloride 10 ml 07/31/20 15:06 08/17/20 05:42 Flush - Normal Saline 10 Ml Syringe IVF 10 ml PRN PRN Administration Saline Flush Spironolactone 12.5 mg 08/18/20 08:00 08/18/20 07:59 Spironolactone 25 Mg Tab PO 12.5 mg QAM-WM WILL Administration Tramadol HCl 50 mg 08/13/20 15:22 08/16/20 16:53 Tramadol Hcl 50 Mg Tab PO 50 mg Q6H PRN Administration Pain/MCCRARY - Exam General Appearance: NAD, awake alert Eye: PERRL ENT: normocephalic atraumatic Neck: supple Heart: RRR Respiratory: CTAB, normal chest expansion Gastrointestinal: soft, normal bowel sounds Neurological: no focal deficits Psychiatric: A&O x 3 Hosp A/P - Plan (1) Acute cholangitis Code(s): K83.09 - OTHER CHOLANGITIS Status: Resolved (2) Fall Code(s): W19.XXXA - UNSPECIFIED FALL, INITIAL ENCOUNTER Status: Acute Qualifiers: Encounter type: initial encounter Qualified Code(s): W19.XXXA - Unspecified fall, initial encounter (3) Normal pressure hydrocephalus Code(s): G91.2 - (IDIOPATHIC) NORMAL PRESSURE HYDROCEPHALUS Status: Chronic (4) Rib fractures Code(s): S22.39XA - FRACTURE OF ONE RIB, UNSP SIDE, INIT FOR CLOS FX Status: Chronic Qualifiers: Encounter type: subsequent encounter (5) SAH (subarachnoid hemorrhage) Code(s): I60.9 - NONTRAUMATIC SUBARACHNOID HEMORRHAGE, UNSPECIFIED Status: Acute (6) Sepsis with metabolic encephalopathy Code(s): A41.9 - SEPSIS, UNSPECIFIED ORGANISM; R65.20 - SEVERE SEPSIS WITHOUT SEPTIC SHOCK; G93.41 - METABOLIC ENCEPHALOPATHY Status: Resolved (7) Hep C w/o coma, chronic Code(s): B18.2 - CHRONIC VIRAL HEPATITIS C Status: Chronic (8) Hepatic cirrhosis Code(s): K74.60 - UNSPECIFIED CIRRHOSIS OF LIVER Status: Chronic Qualifiers: Ascites presence: with ascites (9) Hypoalbuminemia due to protein-calorie malnutrition Code(s): E88.09 - OTH DISORDERS OF PLASMA-PROTEIN METABOLISM, NEC; E46 - UNSPECIFIED PROTEIN-CALORIE MALNUTRITION Status: Chronic (10) Hypokalemia Code(s): E87.6 - HYPOKALEMIA Status: Resolved -Nausea better -Switched to Augmentin Check the electrolytes and replace the mag and potassium as needed. -No change in the medical management. I talked to the pillowcase cleaner today. Pending placement. 3rd He is clinically stable - no acute events noted overnight. I am waiting to hear from the pillowcase cleaner.
--- NOTE | 2020-08-18 17:07 | PDOC.DS.DS ---
Provider - Provider Date of Admission: 07/30/20 21:02 Admitting Provider: Mike Frances MD Primary Care Physician: NO PCP PROVIDER Course - Hospital Course Hospital Course: Patient was admitted on July 30 and had a lengthy stay here. Please see H&P and daily progress notes for more details. Briefly he had the following: (1) Acute cholangitis Code(s): K83.09 - OTHER CHOLANGITIS Status: Resolved (2) Fall Code(s): W19.XXXA - UNSPECIFIED FALL, INITIAL ENCOUNTER Status: Acute Qualifiers: Encounter type: initial encounter Qualified Code(s): W19.XXXA - Unspecified fall, initial encounter (3) Normal pressure hydrocephalus Code(s): G91.2 - (IDIOPATHIC) NORMAL PRESSURE HYDROCEPHALUS Status: Chronic (4) Rib fractures Code(s): S22.39XA - FRACTURE OF ONE RIB, UNSP SIDE, INIT FOR CLOS FX Status: Chronic Qualifiers: Encounter type: subsequent encounter (5) SAH (subarachnoid hemorrhage) Code(s): I60.9 - NONTRAUMATIC SUBARACHNOID HEMORRHAGE, UNSPECIFIED Status: Acute (6) Sepsis with metabolic encephalopathy Code(s): A41.9 - SEPSIS, UNSPECIFIED ORGANISM; R65.20 - SEVERE SEPSIS WITHOUT SEPTIC SHOCK; G93.41 - METABOLIC ENCEPHALOPATHY Status: Resolved (7) Hep C w/o coma, chronic Code(s): B18.2 - CHRONIC VIRAL HEPATITIS C Status: Chronic (8) Hepatic cirrhosis Code(s): K74.60 - UNSPECIFIED CIRRHOSIS OF LIVER Status: Chronic Qualifiers: Ascites presence: with ascites (9) Hypoalbuminemia due to protein-calorie malnutrition Code(s): E88.09 - OTH DISORDERS OF PLASMA-PROTEIN METABOLISM, NEC; E46 - UNSPECIFIED PROTEIN-CALORIE MALNUTRITION Status: Chronic (10) Hypokalemia Code(s): E87.6 - HYPOKALEMIA Status: Resolved 55-year-old male presented with cholangitis secondary to retained biliary stent status post ERCP on August [address] Duarte per day and the removal of the biliary foreign body. He remained stable from that regard. We continued the ceftriaxone and he completed the course of antibiotic. His blood cultures were negative for more than 5 days. His urine culture was also negative. His ascitic fluid cultures without any growth. Cirrhosis with chronic hepatitis C that has been untreated. Decompensated liver failure with elevated INR. Elevated INR and hypoalbuminemia. He remained hemodynamically stable for almost over a week. Mentation seems to be at baseline without any significant confusion. He will be transferring to [facility] today. Follow up with Dr. Len Pete in 2 to 3 weeks. Resuscitation Status: 07/30/20 22:21 Resuscitation Status Routine Resuscitation Status: FULL: Full Resuscitation - Labs Lab Results: 08/14/20 05:13 08/16/20 05:57 Microbiology - Entire Visit 07/30/20 17:18 Venous blood - Left Hand Blood Culture - Final NO GROWTH IN 5 DAYS 07/30/20 17:21 Venous blood - Left Hand Blood Culture - Final NO GROWTH IN 5 DAYS 07/30/20 18:51 Lumbar - Pending Body Fluid Culture - Final 07/30/20 21:44 Urine voided Urine Culture - Final NO GROWTH AT 36 HOURS - Physical Exam Vitals: Vital Signs (12 hours) Temp Pulse Resp BP Pulse Ox 08/18/20 08:14 98.3 F 75 18 148/71 H 97 08/18/20 08:00 97 Weight Admit Weight 203 lb 1.6 oz Weight 214 lb 8 oz Physical Exam: The patient was seen and examined on the day of discharge. Please see today's progress note. Plan - Discharge Medications Home Medications: Medication Instructions Recorded Confirmed Type FLUoxetine HCl [Prozac] 20 mg PO DAILY 07/20/20 08/01/20 History Furosemide [Lasix] 20 mg PO DAILY 07/20/20 08/01/20 History Lactulose [Kristalose] 20 gm PO BID 07/20/20 08/01/20 History Lisinopril [Zestril] 5 mg PO DAILY 07/20/20 08/01/20 History Lactulose 20 gm PO BID udcup 08/18/20 Rx Loperamide HCl [Imodium] 2 mg PO PRN PRN cap 08/18/20 Rx Spironolactone [Aldactone] 12.5 mg PO QAM-WM tab 08/18/20 Rx Allergies: acetaminophen Allergy (Severe, Verified 01/22/20 15:21) Anaphylaxis PER ESD RECORD - Discharge Instructions Discharge Instructions:: Repeat CT brain after 4 weeks Fall precautions Follow-up with the GI clinic Dr. Len Pete in 2 to 3 weeks time. Activity:: Activity as Tolerated Nourishment:: No Added Salt Diet - Follow up Plan Referrals: Len Pete MD [Active] - ( DIRECTED ) PROVIDER,NO PCP [Primary Care Provider] - (3-7 DAYS ) Enrrique Black MD [Active] - 2-3 Weeks Disposition: [facility] Quality - Care Measures CORE MEASURES:: N/A
[2020-08-18 18:59] VITALS: BP 134/76; TEMP 98.9
--- NOTE | 2020-08-20 05:20 | PQF ---
CLINICAL DOCUMENTATION CLARIFICATION FORM: Dear :Adrian Strong Date / Time: 08/20/2020 0519 Please exercise your independent, professional judgment in responding to the clarification form. Clinical indicators are provided on the bottom of this form for your review In your clinical opinion based on clinical findings below can you please identify the etiology of Sepsis due to: Please check appropriate box(es): [ x ] Retained Biliary stent [ x] UTI [ ] Other diagnosis [ ] Unable to determine Physician Signature: Date/Time: For continuity of documentation, please document condition throughout progress notes and discharge summary. Thank You. To be completed by CDI/Coding staff for physician review: Present Clinical Indicators - Signs / Symptoms / Labs Results and Location in Medical Record [X] Urine culture No growth at 36 hrs Microbiology 07/30 [X] Blood culture No growth in 5 days Microbiology 07/30 [X] WBC 10.1, Plt count 246, Neutrophils 81.1 Laboratory 07/30 [X] Urinalysis: P 7.5, gravity 1.046, Urobilinogen 6 A Laboratory 07/30 [X] Sepsis with metabolic Encephalopathy H&P p4 07/30 Dr Frances [X] Ascending cholangitis associated with malfunction of the stent Consult Dr Sanford 07/31 [X] Sepsis with UTI DS p1 08/05 Dr Downey [X] Severe sepsis with toxic metabolic encephalopathy?- etiology. Patient has biliary stent which could be possible source of infection PN 07/31 Present Risk Factors Results and Location in Medical Record [X] Hx of liver cirrhosis H&P p1 07/30 Dr Frances [X] HTN H&P p1 07/30 Dr Frances [X] Hepatitis C H&P p1 07/30 Dr Frances [X] UTI DS p1 08/05 Dr Downey [X] Presence of biliary stent PN 07/31 Present Treatments Results and Location in Medical Record [X] IV Ampicilin 2 gm MAR 07/30 [X] IV Cefepime 2 gm MAR 07/30 [X] IV Ceftriqaxone 2 gm MAR 07/31 [X] IV Meropenem 1 gm MAR 07/31 [X] IVF NS 1L MAR 07/30 [X] Urine culture Microbiology 07/30 [X] Blood culture Microbiology 07/30 [X] Urinalysis Laboratory 07/30 [X] ERCP with stent removal Procedure Dr Canchola 08/01 [X] ID Consult Consult Dr Sanford 07/31 [X] GI consult Consult Dr Holliday 07/31 CDS/Rn Emergency Room Signature: Johanna Austin Livjacejey Phone #: [phone] Date/Time: 08/20/2020 0519 This is a permanent part of the Medical Record [facility]
== END 2020-08-18 20:20 | DRG 871 ==
LOC: ERS 16:49 → SURG B 21:02 → 2NO 07-31 13:39 → T4-A 08-01 19:33
PROVIDERS: ADMIT Internal Medicine; ATTEND Internal Medicine
PROC: 009U3ZX Drainage of Spinal Canal, Percutaneous Approach, Diagnostic (ICD-10-PCS; 2020-07-30)
PROC: 0FPB8DZ Removal of Intraluminal Device from Hepatobiliary Duct, Via Natural or Artificial Opening Endoscopic (ICD-10-PCS; principal; 2020-08-01)
DX: A41.9 Sepsis, unspecified organism (principal); G92 Toxic encephalopathy; K83.1 Obstruction of bile duct; S06.6X9A Traumatic subarachnoid hemorrhage with loss of consciousness of unspecified duration, initial encounter; T85.79XA Infection and inflammatory reaction due to other internal prosthetic devices, implants and grafts, initial encounter; K83.09 Other cholangitis; G91.2 (Idiopathic) normal pressure hydrocephalus; D68.4 Acquired coagulation factor deficiency; E87.1 Hypo-osmolality and hyponatremia; K76.6 Portal hypertension; E46 Unspecified protein-calorie malnutrition; N39.0 Urinary tract infection, site not specified; R65.20 Severe sepsis without septic shock; Z20.828 Contact with and (suspected) exposure to other viral communicable diseases; Y83.1 Surgical operation with implant of artificial internal device as the cause of abnormal reaction of the patient, or of later complication, without mention of misadventure at the time of the procedure; B18.2 Chronic viral hepatitis C; E87.6 Hypokalemia; I10 Essential (primary) hypertension; F41.9 Anxiety disorder, unspecified; F43.10 Post-traumatic stress disorder, unspecified; J44.9 Chronic obstructive pulmonary disease, unspecified; I86.8 Varicose veins of other specified sites; W19.XXXA Unspecified fall, initial encounter; E83.42 Hypomagnesemia; K70.31 Alcoholic cirrhosis of liver with ascites; R29.6 Repeated falls; S22.42XD Multiple fractures of ribs, left side, subsequent encounter for fracture with routine healing; E83.39 Other disorders of phosphorus metabolism; R11.0 Nausea; Z79.899 Other long term (current) drug therapy; Z88.6 Allergy status to analgesic agent; Z87.440 Personal history of urinary (tract) infections; Z90.49 Acquired absence of other specified parts of digestive tract; Z68.29 Body mass index [BMI] 29.0-29.9, adult
CPT/HCPCS: 36415; 62270; 70450; 70470; 72125; 74177; 74330; 76705; 80048; 80053; 80076; 80202; 81003; 82140; 82945; 83605; 83690; 83735; 84100; 84132; 84145; 84157; 84484; 85025; 85060; 85610; 85730; 86140; 87040; 87070; 87086; 87205; 87635; 89051; 95712; 95816; 95819; 95957; 96365; 96366; 96367; 96375; J0290; J0692; J0696; J1610; J1650; J1885; J2001; J2185; J2250; J2270; J2405; J2704; J3010; J3370; J3430; J3490; J7030; J7050; Q0162; U0002; U0003

== ENCOUNTER 2020-12-16 15:37 | Inpatient (IN) | payer OTHER, SELFPAY ==
[2020-12-16 17:47] LABS: ALT (SGPT) 48 U/L (8-55); AST (SGOT) 127 U/L (5-34); Albumin 1.9 g/dL (3.5-5.0); Alkaline Phosphatase 127 U/L (40-110); Anion Gap 11 mmol/L (10-20); BUN (Urea Nitrogen) 16 mg/dL (8.4-25.7); Calc. Creatinine Clearance 0 mL/min (70-130); Carbon Dioxide 22 mmol/L (22-29); Chloride 101 mmol/L (98-107); Globulin 4.6 g/dL (2.4-3.5); Glucose 87 mg/dL (70-105); Lipase 70 U/L (8-78); Potassium 3.5 mmol/L (3.5-5.1); Protein, Total 6.5 g/dL (6.0-8.3); Sodium 130 mmol/L (136-145)
[2020-12-16 18:31] LABS: Hemoglobin 8.7 g/dL (14.0-18.0); Mean Corpuscular HGB CONC 31.4 g/dL (32.0-36.0); Mean Corpuscular Hemoglobin 30.6 pg (27.0-31.0); Mean Corpuscular Volume 97.4 fL (78.0-98.0); Mean Platelet Volume 6.9 fL (7.4-10.4); Platelet Count 169 thou/uL (130-400); RBC Distribution Width 15.3 % (11.5-14.5); Red Blood Cell (RBC) Count 2.84 mill/uL (4.70-6.10); White Blood Cell (WBC) Count 8.3 thou/uL (4.8-10.8)
[2020-12-16 18:41] LABS: PTT 37.6 sec (22.9-36.1); Prothrombin Time 23.1 sec (12.0-14.7)
[2020-12-16 18:59] LABS: Band 26 % (5-11); Eosinophils 4 % (0-10); Hypochromia SLIGHT = 6-15 cells (100X) (0-5/hpf); Lymphocytes 3 % (21-51); MDiff Complete? YES; Monocytes 13 % (0-10); Neutrophil 48 % (42-75); Platelet Morphology Comment Appears Adequate; Polychromasia MODERATE = 3-4 cells (100X) (0-2/hpf); Reactive Lymphocytes 6 % (0-10); Schistocytes SLIGHT = 2-5 cells (100X) (0-1/hpf)
[2020-12-16] MEDS ORDERED: Morphine 2 MG/ML VIAL ONE (19:59)
[2020-12-16] MEDS ORDERED: cefTRIAXone\\ROCEPHIN 2 GM VIAL ONE (19:59)
[2020-12-16 20:29] LABS: Bacteria/HPF None Seen HPF (None Seen); Bilirubin 2+ (Negative); Blood, Urine 1+ (Negative); Clarity Clear (Clear); Glucose, Urine (Dipstick) Normal (Negative); Ketone, Urine Negative (Negative); Leukocyte Negative Leu/uL (Negative); Nitrite Negative (Negative); Protein, Urine (Dipstick) Negative (Neg-Trace); Specific Gravity, Urine 1.015 (1.002-1.036); Squamous Epithelial None Seen HPF (0-3); Urobilinogen 3 mg/dL (Less than 2); WBC/HPF 0-3 HPF (0-3); pH, Urine 6.5 (5.0-9.0)
[2020-12-16] MEDS ORDERED: Azithromycin 500 MG VIAL ONE (20:52)
[2020-12-16 22:17] LABS: Hemoglobin 8.6 g/dL (14.0-18.0)
[2020-12-16 23:12] VITALS: BMI 29.2
[2020-12-16] MEDS ORDERED: Sodium Chloride 0.9% 250 ML IV SCH (23:30)
[2020-12-16] MEDS ORDERED: Metoprolol Tartrate 5 MG/5 ML VIAL IVP SCH (23:30)
[2020-12-16] MEDS ORDERED: Morphine 2 MG/ML VIAL SLOW IVP SCH (23:30)
[2020-12-16] MEDS ORDERED: Ketorolac Tromethamine 30 MG/ML VIAL IVP SCH (23:30)
[2020-12-17] MEDS: Piperacillin/Tazobactam 4.5 GM in Sodium Chloride 0.9% 100 ML IVPB SCH ×4 (00:05→20:40)
[2020-12-17] MEDS: Pantoprazole 40 MG VIAL IVP SCH ×3 (00:06→20:39)
[2020-12-17] MEDS: Octreotide Acetate 100 MCG/ML VIAL SLOW IVP SCH ×4 (00:07→20:38)
[2020-12-17] MEDS ORDERED: Metoprolol Tartrate 5 MG/5 ML VIAL IVP SCH (00:45)
[2020-12-17 04:30] LABS: SARS-CoV-2 PCR by NAA Not Detected (NotDetected)
[2020-12-17 08:06] LABS: Hemoglobin 8.1 g/dL (14.0-18.0); Mean Corpuscular HGB CONC 31.9 g/dL (32.0-36.0); Mean Corpuscular Hemoglobin 30.7 pg (27.0-31.0); Mean Corpuscular Volume 96.3 fL (78.0-98.0); Mean Platelet Volume 6.9 fL (7.4-10.4); Platelet Count 128 thou/uL (130-400); RBC Distribution Width 15.2 % (11.5-14.5); Red Blood Cell (RBC) Count 2.63 mill/uL (4.70-6.10); White Blood Cell (WBC) Count 5.5 thou/uL (4.8-10.8)
[2020-12-17 08:22] LABS: Anion Gap 6 mmol/L (10-20); BUN (Urea Nitrogen) 13 mg/dL (8.4-25.7); Calc. Creatinine Clearance 146 mL/min (70-130); Carbon Dioxide 25 mmol/L (22-29); Chloride 104 mmol/L (98-107); Glucose 81 mg/dL (70-105); Lipase 54 U/L (8-78); Potassium 3.4 mmol/L (3.5-5.1); Sodium 132 mmol/L (136-145)
[2020-12-17 08:24] LABS: ALT (SGPT) 34 U/L (8-55); AST (SGOT) 82 U/L (5-34); Albumin 1.4 g/dL (3.5-5.0); Alkaline Phosphatase 101 U/L (40-110); Bilirubin, Direct 4.7 mg/dL (0.1-0.3); Bilirubin, Total 5.9 mg/dL (0.2-1.2)
[2020-12-17 08:56] LABS: Band 7 % (5-11); Eosinophils 6 % (0-10); Lymphocytes 23 % (21-51); MDiff Complete? YES; Monocytes 18 % (0-10); Neutrophil 46 % (42-75); Platelet Morphology Comment Appears Decreased; Polychromasia SLIGHT = 2-3 cells (100X) (0-2/hpf)
[2020-12-17] MEDS: traMADol HCl 50 MG TAB PO PRN ×2 (14:40→20:38)
[2020-12-17] MEDS ORDERED: cefTRIAXone\\ROCEPHIN 1 GM in Sodium Chloride 0.9% 100 ML IVPB SCH (20:00)
[2020-12-17] MEDS: Flecainide 50 MG TAB PO SCH (20:38)
[2020-12-17] MEDS: Sodium Chloride 0.9% (PF) 10 ML VIAL FS PRN (20:38)
[2020-12-18] MEDS: Piperacillin/Tazobactam 4.5 GM in Sodium Chloride 0.9% 100 ML IVPB SCH ×3 (04:26→20:56)
[2020-12-18 05:23] LABS: Hemoglobin 8.8 g/dL (14.0-18.0); Mean Corpuscular HGB CONC 32.6 g/dL (32.0-36.0); Mean Corpuscular Hemoglobin 31.3 pg (27.0-31.0); Mean Corpuscular Volume 96.2 fL (78.0-98.0); Mean Platelet Volume 6.7 fL (7.4-10.4); Platelet Count 159 thou/uL (130-400); RBC Distribution Width 15.1 % (11.5-14.5); White Blood Cell (WBC) Count 5.7 thou/uL (4.8-10.8)
[2020-12-18 05:40] LABS: ALT (SGPT) 36 U/L (8-55); AST (SGOT) 87 U/L (5-34); Albumin 1.5 g/dL (3.5-5.0); Alkaline Phosphatase 108 U/L (40-110); Anion Gap 8 mmol/L (10-20); BUN (Urea Nitrogen) 10 mg/dL (8.4-25.7); Bilirubin, Total 6.9 mg/dL (0.2-1.2); Calc. Creatinine Clearance 152 mL/min (70-130); Carbon Dioxide 23 mmol/L (22-29); Chloride 104 mmol/L (98-107); Globulin 4.2 g/dL (2.4-3.5); Glucose 67 mg/dL (70-105); Potassium 3.2 mmol/L (3.5-5.1); Protein, Total 5.7 g/dL (6.0-8.3); Sodium 132 mmol/L (136-145)
[2020-12-18 05:44] LABS: Band 5 % (5-11); Eosinophils 7 % (0-10); Lymphocytes 17 % (21-51); MDiff Complete? YES; Metamyelocyte 1 % (0-0); Monocytes 15 % (0-10); Neutrophil 55 % (42-75); Platelet Morphology Comment Appears Adequate
[2020-12-18] MEDS: Octreotide Acetate 100 MCG/ML VIAL SLOW IVP SCH ×2 (08:18→15:28)
[2020-12-18] MEDS: Flecainide 50 MG TAB PO SCH ×2 (08:19→20:57)
[2020-12-18] MEDS: Pantoprazole 40 MG VIAL IVP SCH ×2 (08:19→20:57)
[2020-12-18] MEDS ORDERED: PROPOFOL 200 MG/20 ML VIAL ONE (08:56)
[2020-12-18] MEDS ORDERED: Ondansetron PF 4 MG/2 ML Vial ONE (08:56)
[2020-12-18] MEDS ORDERED: Lidocaine 1% PF 5 ML VIAL ONE (08:56)
[2020-12-18] MEDS ORDERED: Magnevist 469MG/ML 20 ML VIAL ONE (11:57)
[2020-12-18] MEDS ORDERED: Potassium Chloride 20 MEQ TAB PO SCH (12:00)
[2020-12-18] MEDS: Lisinopril 5 MG TAB PO SCH (12:34)
[2020-12-18] MEDS: Furosemide 20 MG TAB PO SCH (12:35)
[2020-12-18] MEDS: FLUoxetine HCl 10 MG CAP PO SCH (12:43)
[2020-12-18 13:04] LABS: Anion Gap 7 mmol/L (10-20); BUN (Urea Nitrogen) 9 mg/dL (8.4-25.7); Calc. Creatinine Clearance 154 mL/min (70-130); Calcium 7.1 mg/dL (7.8-10.44); Carbon Dioxide 24 mmol/L (22-29); Chloride 105 mmol/L (98-107); Glucose 69 mg/dL (70-105); Potassium 3.4 mmol/L (3.5-5.1); Sodium 133 mmol/L (136-145)
[2020-12-18] MEDS: traMADol HCl 50 MG TAB PO PRN (20:57)
[2020-12-19] MEDS: Piperacillin/Tazobactam 4.5 GM in Sodium Chloride 0.9% 100 ML IVPB SCH ×3 (05:55→21:25)
[2020-12-19] MEDS: Furosemide 20 MG TAB PO SCH (08:47)
[2020-12-19] MEDS: FLUoxetine HCl 10 MG CAP PO SCH (08:47)
[2020-12-19] MEDS: Pantoprazole 40 MG VIAL IVP SCH ×2 (08:47→21:25)
[2020-12-19] MEDS: Lisinopril 5 MG TAB PO SCH (08:47)
[2020-12-19] MEDS: Flecainide 50 MG TAB PO SCH ×2 (08:47→21:25)
[2020-12-19] MEDS: traMADol HCl 50 MG TAB PO PRN (22:09)
[2020-12-20] MEDS: traMADol HCl 50 MG TAB PO PRN (03:20)
[2020-12-20] MEDS: Piperacillin/Tazobactam 4.5 GM in Sodium Chloride 0.9% 100 ML IVPB SCH ×3 (05:49→21:07)
[2020-12-20] MEDS: Lisinopril 5 MG TAB PO SCH (07:44)
[2020-12-20] MEDS: Sodium Chloride 0.9% (PF) 10 ML VIAL FS PRN (07:44)
[2020-12-20] MEDS: Flecainide 50 MG TAB PO SCH (07:44)
[2020-12-20] MEDS: Furosemide 20 MG TAB PO SCH (07:44)
[2020-12-20] MEDS: FLUoxetine HCl 10 MG CAP PO SCH (07:45)
[2020-12-20] MEDS: Pantoprazole 40 MG VIAL IVP SCH ×2 (07:45→21:07)
[2020-12-20 10:02] LABS: Anion Gap 6 mmol/L (10-20); BUN (Urea Nitrogen) 6 mg/dL (8.4-25.7); Calc. Creatinine Clearance 166 mL/min (70-130); Calcium 6.9 mg/dL (7.8-10.44); Carbon Dioxide 25 mmol/L (22-29); Chloride 105 mmol/L (98-107); Glucose 93 mg/dL (70-105); Magnesium 1.8 mg/dL (1.6-2.6); Sodium 133 mmol/L (136-145)
[2020-12-20] MEDS ORDERED: Potassium Chloride 20 MEQ TAB PO SCH (14:15)
[2020-12-20] MEDS: Potassium Chloride 10 MEQ in Premix Bag 1 BAG IVPB SCH ×4 (14:54→18:00)
[2020-12-21] MEDS: Piperacillin/Tazobactam 4.5 GM in Sodium Chloride 0.9% 100 ML IVPB SCH (05:18)
[2020-12-21] MEDS: FLUoxetine HCl 10 MG CAP PO SCH (09:21)
[2020-12-21] MEDS: Furosemide 20 MG TAB PO SCH (09:22)
[2020-12-21] MEDS: Lisinopril 5 MG TAB PO SCH (09:23)
[2020-12-21] MEDS: Pantoprazole 40 MG VIAL IVP SCH ×2 (09:24→21:41)
[2020-12-22] MEDS: Lisinopril 5 MG TAB PO SCH (09:05)
[2020-12-22] MEDS: Furosemide 20 MG TAB PO SCH (09:05)
[2020-12-22] MEDS: FLUoxetine HCl 10 MG CAP PO SCH (09:05)
[2020-12-22] MEDS: Pantoprazole 40 MG VIAL IVP SCH ×2 (09:06→21:54)
[2020-12-22 15:03] LABS: #Basophils 0.1 thou/uL (0.0-0.2); #Eosinphils 0.2 thou/uL (0.0-0.7); #Lymphocytes 1.5 thou/uL (1.20-3.40); #Monocytes 0.7 thou/uL (0.11-0.59); #Neutrophils 4.1 thou/uL (1.40-6.50); %Basophils 1.2 % (0.0-1.0); %Eosinophils 2.8 % (0.0-10.0); %Lymphocytes 23.2 % (21.0-51.0); %Monocytes 10.9 % (0.0-10.0); %Neutrophils 61.9 % (42.0-75.0); Hemoglobin 8.6 g/dL (14.0-18.0); Mean Corpuscular HGB CONC 31.7 g/dL (32.0-36.0); Mean Corpuscular Hemoglobin 30.6 pg (27.0-31.0); Mean Corpuscular Volume 96.3 fL (78.0-98.0); Mean Platelet Volume 6.4 fL (7.4-10.4); Platelet Count 203 thou/uL (130-400); RBC Distribution Width 15.4 % (11.5-14.5); White Blood Cell (WBC) Count 6.6 thou/uL (4.8-10.8)
[2020-12-22 15:25] LABS: Anion Gap 10 mmol/L (10-20); BUN (Urea Nitrogen) 6 mg/dL (8.4-25.7); Calc. Creatinine Clearance 182 mL/min (70-130); Calcium 7.1 mg/dL (7.8-10.44); Carbon Dioxide 21 mmol/L (22-29); Chloride 105 mmol/L (98-107); Glucose 83 mg/dL (70-105); Potassium 3.5 mmol/L (3.5-5.1); Sodium 132 mmol/L (136-145)
[2020-12-23] MEDS: Furosemide 20 MG TAB PO SCH (09:58)
[2020-12-23] MEDS: Lisinopril 5 MG TAB PO SCH (09:58)
[2020-12-23] MEDS: FLUoxetine HCl 10 MG CAP PO SCH (09:58)
[2020-12-23] MEDS: Pantoprazole 40 MG VIAL IVP SCH ×2 (09:58→21:11)
[2020-12-23] MEDS: traMADol HCl 50 MG TAB PO PRN ×2 (12:41→21:11)
[2020-12-24] MEDS: FLUoxetine HCl 10 MG CAP PO SCH (09:24)
[2020-12-24] MEDS: Lisinopril 5 MG TAB PO SCH (09:24)
[2020-12-24] MEDS: Furosemide 20 MG TAB PO SCH (09:24)
[2020-12-24] MEDS: Sodium Chloride 0.9% (PF) 10 ML VIAL FS PRN (09:25)
[2020-12-24] MEDS: Pantoprazole 40 MG VIAL IVP SCH ×2 (09:25→20:24)
[2020-12-24] MEDS: traMADol HCl 50 MG TAB PO PRN (11:42)
[2020-12-25] MEDS: Pantoprazole 40 MG VIAL IVP SCH (09:21)
[2020-12-25] MEDS: Furosemide 20 MG TAB PO SCH (09:21)
[2020-12-25] MEDS: FLUoxetine HCl 10 MG CAP PO SCH (09:22)
[2020-12-25] MEDS: Lisinopril 5 MG TAB PO SCH (09:22)
[2020-12-25] MEDS: Sodium Chloride 0.9% (PF) 10 ML VIAL FS PRN (09:23)
[2020-12-25] MEDS: traMADol HCl 50 MG TAB PO PRN ×3 (10:43→23:25)
[2020-12-26 07:19] LABS: #Basophils 0.1 thou/uL (0.0-0.2); #Eosinphils 0.2 thou/uL (0.0-0.7); #Lymphocytes 1.6 thou/uL (1.20-3.40); #Monocytes 0.7 thou/uL (0.11-0.59); #Neutrophils 4.5 thou/uL (1.40-6.50); %Basophils 1.9 % (0.0-1.0); %Eosinophils 2.2 % (0.0-10.0); %Lymphocytes 22.8 % (21.0-51.0); %Monocytes 9.5 % (0.0-10.0); %Neutrophils 63.6 % (42.0-75.0); Hemoglobin 8.4 g/dL (14.0-18.0); Mean Corpuscular HGB CONC 32.2 g/dL (32.0-36.0); Mean Corpuscular Hemoglobin 30.7 pg (27.0-31.0); Mean Corpuscular Volume 95.3 fL (78.0-98.0); Mean Platelet Volume 6.7 fL (7.4-10.4); Platelet Count 182 thou/uL (130-400); RBC Distribution Width 15.9 % (11.5-14.5); Red Blood Cell (RBC) Count 2.75 mill/uL (4.70-6.10); White Blood Cell (WBC) Count 7.1 thou/uL (4.8-10.8)
[2020-12-26 07:39] LABS: ALT (SGPT) 24 U/L (8-55); AST (SGOT) 62 U/L (5-34); Albumin 1.5 g/dL (3.5-5.0); Alkaline Phosphatase 123 U/L (40-110); Anion Gap 8 mmol/L (10-20); BUN (Urea Nitrogen) 7 mg/dL (8.4-25.7); Bilirubin, Total 4.9 mg/dL (0.2-1.2); Calc. Creatinine Clearance 188 mL/min (70-130); Carbon Dioxide 21 mmol/L (22-29); Chloride 104 mmol/L (98-107); Globulin 4.5 g/dL (2.4-3.5); Glucose 62 mg/dL (70-105); Potassium 3.4 mmol/L (3.5-5.1); Sodium 130 mmol/L (136-145)
[2020-12-26] MEDS: traMADol HCl 50 MG TAB PO PRN ×2 (09:05→17:20)
[2020-12-26] MEDS: Lisinopril 5 MG TAB PO SCH (09:06)
[2020-12-26] MEDS: Furosemide 20 MG TAB PO SCH (09:11)
[2020-12-26] MEDS: FLUoxetine HCl 10 MG CAP PO SCH (09:12)
[2020-12-26] MEDS ORDERED: Potassium Chloride 20 MEQ TAB PO SCH (10:45)
[2020-12-26] MEDS: Artificial Tear Sol 15 ML BOT EA EYE SCH (21:15)
[2020-12-27] MEDS: traMADol HCl 50 MG TAB PO PRN ×3 (03:05→21:08)
[2020-12-27 06:08] LABS: Anion Gap 8 mmol/L (10-20); BUN (Urea Nitrogen) 8 mg/dL (8.4-25.7); Calc. Creatinine Clearance 176 mL/min (70-130); Calcium 6.9 mg/dL (7.8-10.44); Carbon Dioxide 21 mmol/L (22-29); Chloride 104 mmol/L (98-107); Glucose 101 mg/dL (70-105); Magnesium 1.8 mg/dL (1.6-2.6); Potassium 3.6 mmol/L (3.5-5.1); Sodium 129 mmol/L (136-145)
[2020-12-27] MEDS: Furosemide 20 MG TAB PO SCH (09:18)
[2020-12-27] MEDS: Lisinopril 5 MG TAB PO SCH (09:18)
[2020-12-27] MEDS: Artificial Tear Sol 15 ML BOT EA EYE SCH ×3 (09:18→21:56)
[2020-12-27] MEDS: FLUoxetine HCl 10 MG CAP PO SCH (09:18)
[2020-12-28 06:15] LABS: Anion Gap 9 mmol/L (10-20); BUN (Urea Nitrogen) 7 mg/dL (8.4-25.7); Calc. Creatinine Clearance 182 mL/min (70-130); Calcium 6.9 mg/dL (7.8-10.44); Carbon Dioxide 22 mmol/L (22-29); Chloride 106 mmol/L (98-107); Glucose 61 mg/dL (70-105); Potassium 3.5 mmol/L (3.5-5.1); Sodium 133 mmol/L (136-145)
[2020-12-28] MEDS: Lisinopril 5 MG TAB PO SCH (08:26)
[2020-12-28] MEDS: FLUoxetine HCl 10 MG CAP PO SCH (08:26)
[2020-12-28] MEDS: Furosemide 20 MG TAB PO SCH (08:29)
[2020-12-28] MEDS: Artificial Tear Sol 15 ML BOT EA EYE SCH ×3 (08:30→20:24)
[2020-12-29] MEDS: FLUoxetine HCl 10 MG CAP PO SCH (08:05)
[2020-12-29] MEDS: Furosemide 20 MG TAB PO SCH (08:06)
[2020-12-29] MEDS: Artificial Tear Sol 15 ML BOT EA EYE SCH ×3 (08:16→21:44)
[2020-12-29] MEDS: Lisinopril 5 MG TAB PO SCH (09:00)
[2020-12-29] MEDS: traMADol HCl 50 MG TAB PO PRN ×2 (11:16→21:53)
[2020-12-30] MEDS: FLUoxetine HCl 10 MG CAP PO SCH (09:21)
[2020-12-30] MEDS: Furosemide 20 MG TAB PO SCH (09:22)
[2020-12-30] MEDS: Lisinopril 5 MG TAB PO SCH (09:22)
[2020-12-30] MEDS: Artificial Tear Sol 15 ML BOT EA EYE SCH ×3 (09:24→21:12)
[2020-12-30] MEDS: traMADol HCl 50 MG TAB PO PRN (21:11)
[2020-12-31] MEDS: FLUoxetine HCl 10 MG CAP PO SCH (08:53)
[2020-12-31] MEDS: Furosemide 20 MG TAB PO SCH (08:53)
[2020-12-31] MEDS: Lisinopril 5 MG TAB PO SCH (08:53)
[2020-12-31] MEDS: Artificial Tear Sol 15 ML BOT EA EYE SCH ×3 (08:54→21:29)
[2020-12-31] MEDS: traMADol HCl 50 MG TAB PO PRN ×2 (11:19→21:29)
[2021-01-01] MEDS: FLUoxetine HCl 10 MG CAP PO SCH (08:20)
[2021-01-01] MEDS: Artificial Tear Sol 15 ML BOT EA EYE SCH ×3 (08:21→20:00)
[2021-01-01] MEDS: Furosemide 20 MG TAB PO SCH (08:24)
[2021-01-01] MEDS: Lisinopril 5 MG TAB PO SCH (12:32)
[2021-01-01] MEDS: traMADol HCl 50 MG TAB PO PRN ×2 (13:09→19:56)
[2021-01-02] MEDS: traMADol HCl 50 MG TAB PO PRN (05:46)
[2021-01-02] MEDS: FLUoxetine HCl 10 MG CAP PO SCH (08:25)
[2021-01-02] MEDS: Artificial Tear Sol 15 ML BOT EA EYE SCH ×3 (08:25→21:22)
[2021-01-02] MEDS: Furosemide 20 MG TAB PO SCH (08:26)
[2021-01-03] MEDS: traMADol HCl 50 MG TAB PO PRN (06:03)
[2021-01-03] MEDS: FLUoxetine HCl 10 MG CAP PO SCH (07:55)
[2021-01-03] MEDS: Furosemide 20 MG TAB PO SCH (07:56)
[2021-01-03] MEDS: Artificial Tear Sol 15 ML BOT EA EYE SCH ×3 (07:56→20:17)
[2021-01-04] MEDS: Furosemide 20 MG TAB PO SCH (08:17)
[2021-01-04] MEDS: FLUoxetine HCl 10 MG CAP PO SCH (08:17)
[2021-01-04] MEDS: Artificial Tear Sol 15 ML BOT EA EYE SCH ×3 (08:27→20:24)
[2021-01-04] MEDS: traMADol HCl 50 MG TAB PO PRN (16:28)
[2021-01-05] MEDS: FLUoxetine HCl 10 MG CAP PO SCH (08:32)
[2021-01-05] MEDS: Furosemide 20 MG TAB PO SCH (08:32)
[2021-01-05] MEDS: Artificial Tear Sol 15 ML BOT EA EYE SCH ×3 (08:32→21:41)
[2021-01-05] MEDS: traMADol HCl 50 MG TAB PO PRN (15:25)
[2021-01-05] MEDS: Ondansetron PF 4 MG/2 ML Vial IVP PRN (23:45)
[2021-01-06] MEDS: FLUoxetine HCl 10 MG CAP PO SCH (09:04)
[2021-01-06] MEDS: Furosemide 20 MG TAB PO SCH (09:05)
[2021-01-06] MEDS: Artificial Tear Sol 15 ML BOT EA EYE SCH ×3 (09:05→21:01)
[2021-01-07] MEDS: FLUoxetine HCl 10 MG CAP PO SCH (09:04)
[2021-01-07] MEDS: Artificial Tear Sol 15 ML BOT EA EYE SCH ×3 (09:04→21:42)
[2021-01-07] MEDS: Furosemide 20 MG TAB PO SCH (09:04)
[2021-01-07] MEDS: Ondansetron PF 4 MG/2 ML Vial IVP PRN (09:43)
[2021-01-07] MEDS: traMADol HCl 50 MG TAB PO PRN (15:22)
[2021-01-08] MEDS: traMADol HCl 50 MG TAB PO PRN (05:28)
[2021-01-08] MEDS: Furosemide 20 MG TAB PO SCH (08:02)
[2021-01-08] MEDS: FLUoxetine HCl 10 MG CAP PO SCH (08:02)
[2021-01-08] MEDS: Artificial Tear Sol 15 ML BOT EA EYE SCH ×3 (08:02→20:16)
[2021-01-09] MEDS: Artificial Tear Sol 15 ML BOT EA EYE SCH ×3 (08:31→21:06)
[2021-01-09] MEDS: Furosemide 20 MG TAB PO SCH (08:31)
[2021-01-09] MEDS: FLUoxetine HCl 10 MG CAP PO SCH (08:31)
[2021-01-09 08:35] LABS: Hemoglobin 8.4 g/dL (14.0-18.0); Mean Corpuscular HGB CONC 31.7 g/dL (32.0-36.0); Mean Corpuscular Hemoglobin 30.4 pg (27.0-31.0); Mean Corpuscular Volume 95.7 fL (78.0-98.0); Mean Platelet Volume 6.9 fL (7.4-10.4); Platelet Count 126 thou/uL (130-400); RBC Distribution Width 16.1 % (11.5-14.5); Red Blood Cell (RBC) Count 2.75 mill/uL (4.70-6.10); White Blood Cell (WBC) Count 3.8 thou/uL (4.8-10.8)
[2021-01-09 08:53] LABS: ALT (SGPT) 27 U/L (8-55); AST (SGOT) 73 U/L (5-34); Albumin 1.3 g/dL (3.5-5.0); Alkaline Phosphatase 133 U/L (40-110); Anion Gap 8 mmol/L (10-20); BUN (Urea Nitrogen) 6 mg/dL (8.4-25.7); Bilirubin, Total 4.1 mg/dL (0.2-1.2); Calc. Creatinine Clearance 192 mL/min (70-130); Calcium 6.7 mg/dL (7.8-10.44); Carbon Dioxide 20 mmol/L (22-29); Chloride 107 mmol/L (98-107); Globulin 4.7 g/dL (2.4-3.5); Glucose 81 mg/dL (70-105); Sodium 132 mmol/L (136-145)
[2021-01-09] MEDS ORDERED: Potassium Chloride 20 MEQ TAB PO SCH (13:30)
[2021-01-10] MEDS: FLUoxetine HCl 10 MG CAP PO SCH (08:27)
[2021-01-10] MEDS: Artificial Tear Sol 15 ML BOT EA EYE SCH ×3 (08:28→21:10)
[2021-01-10] MEDS: Furosemide 20 MG TAB PO SCH (08:28)
[2021-01-10 08:39] LABS: Anion Gap 6 mmol/L (10-20); BUN (Urea Nitrogen) 6 mg/dL (8.4-25.7); Calc. Creatinine Clearance 195 mL/min (70-130); Carbon Dioxide 24 mmol/L (22-29); Chloride 108 mmol/L (98-107); Glucose 63 mg/dL (70-105); Potassium 3.2 mmol/L (3.5-5.1); Sodium 135 mmol/L (136-145)
[2021-01-10] MEDS ORDERED: Potassium Chloride 20 MEQ TAB PO SCH (09:00)
[2021-01-10] MEDS: traMADol HCl 50 MG TAB PO PRN (21:14)
[2021-01-11] MEDS: Potassium Chloride 20 MEQ TAB PO SCH (08:37)
[2021-01-11] MEDS: Furosemide 20 MG TAB PO SCH (08:38)
[2021-01-11] MEDS: Artificial Tear Sol 15 ML BOT EA EYE SCH ×3 (08:38→22:04)
[2021-01-11] MEDS: FLUoxetine HCl 10 MG CAP PO SCH (08:38)
[2021-01-11 09:06] LABS: Bilirubin Negative (Negative); Blood, Urine Negative (Negative); Clarity Clear (Clear); Glucose, Urine (Dipstick) Normal (Negative); Ketone, Urine Negative (Negative); Leukocyte 25 Leu/uL (Negative); Nitrite Negative (Negative); Protein, Urine (Dipstick) Negative (Neg-Trace); RBC/HPF 0-3 HPF (0-3); Specific Gravity, Urine 1.012 (1.002-1.036); Squamous Epithelial 0-3 HPF (0-3); Urobilinogen Normal mg/dL (Less than 2); pH, Urine 7.5 (5.0-9.0)
[2021-01-11 09:11] LABS: Bacteria/HPF 1+ HPF (None Seen)
[2021-01-11 09:13] LABS: Urine Culture Reflex Yes Yes
[2021-01-11 10:56] LABS: Anion Gap 7 mmol/L (10-20); BUN (Urea Nitrogen) 5 mg/dL (8.4-25.7); Calc. Creatinine Clearance 195 mL/min (70-130); Calcium 7.1 mg/dL (7.8-10.44); Carbon Dioxide 23 mmol/L (22-29); Chloride 109 mmol/L (98-107); Glucose 122 mg/dL (70-105); Potassium 3.2 mmol/L (3.5-5.1); Sodium 136 mmol/L (136-145)
[2021-01-11] MEDS: traMADol HCl 50 MG TAB PO PRN (22:02)
[2021-01-12 06:30] LABS: Potassium 3.2 mmol/L (3.5-5.1)
[2021-01-12] MEDS ORDERED: Spironolactone 25 MG TAB PO SCH (08:00)
[2021-01-12] MEDS: Potassium Chloride 20 MEQ TAB PO SCH (08:41)
[2021-01-12] MEDS: FLUoxetine HCl 10 MG CAP PO SCH (08:41)
[2021-01-12] MEDS: Artificial Tear Sol 15 ML BOT EA EYE SCH ×3 (08:41→21:33)
[2021-01-12] MEDS ORDERED: Potassium Chloride 20 MEQ TAB PO SCH (08:45)
[2021-01-12] MEDS: Ampicillin 2 GM in Sodium Chloride 0.9% 100 ML IVPB SCH ×2 (18:28→21:32)
[2021-01-13] MEDS: Ampicillin 2 GM in Sodium Chloride 0.9% 100 ML IVPB SCH ×4 (02:37→14:35)
[2021-01-13] MEDS: traMADol HCl 50 MG TAB PO PRN ×3 (03:46→23:54)
[2021-01-13 06:11] LABS: Hemoglobin 8.1 g/dL (14.0-18.0); Mean Corpuscular HGB CONC 31.3 g/dL (32.0-36.0); Mean Corpuscular Hemoglobin 29.6 pg (27.0-31.0); Mean Corpuscular Volume 94.6 fL (78.0-98.0); Mean Platelet Volume 7.4 fL (7.4-10.4); Platelet Count 101 thou/uL (130-400); RBC Distribution Width 15.8 % (11.5-14.5); Red Blood Cell (RBC) Count 2.74 mill/uL (4.70-6.10); White Blood Cell (WBC) Count 4.9 thou/uL (4.8-10.8)
[2021-01-13 06:23] LABS: Anion Gap 7 mmol/L (10-20); BUN (Urea Nitrogen) 6 mg/dL (8.4-25.7); Calc. Creatinine Clearance 210 mL/min (70-130); Calcium 6.9 mg/dL (7.8-10.44); Carbon Dioxide 23 mmol/L (22-29); Chloride 110 mmol/L (98-107); Glucose 62 mg/dL (70-105); Potassium 3.7 mmol/L (3.5-5.1); Sodium 136 mmol/L (136-145)
[2021-01-13] MEDS: FLUoxetine HCl 10 MG CAP PO SCH (08:05)
[2021-01-13] MEDS: Potassium Chloride 20 MEQ TAB PO SCH (08:06)
[2021-01-13] MEDS: Spironolactone 25 MG TAB PO SCH (08:06)
[2021-01-13] MEDS: Artificial Tear Sol 15 ML BOT EA EYE SCH ×3 (08:07→20:01)
[2021-01-13] MEDS: Linezolid 600 MG in Premix Bag 1 BAG IVPB SCH (16:22)
[2021-01-14] MEDS: Linezolid 600 MG in Premix Bag 1 BAG IVPB SCH ×2 (04:51→17:49)
[2021-01-14] MEDS: Spironolactone 25 MG TAB PO SCH (09:46)
[2021-01-14] MEDS: FLUoxetine HCl 10 MG CAP PO SCH (09:47)
[2021-01-14] MEDS: traMADol HCl 50 MG TAB PO PRN (09:47)
[2021-01-14] MEDS: Potassium Chloride 20 MEQ TAB PO SCH (09:47)
[2021-01-14] MEDS: Artificial Tear Sol 15 ML BOT EA EYE SCH ×3 (09:51→19:24)
[2021-01-15] MEDS: Linezolid 600 MG in Premix Bag 1 BAG IVPB SCH (04:36)
[2021-01-15] MEDS: FLUoxetine HCl 10 MG CAP PO SCH (08:31)
[2021-01-15] MEDS: Artificial Tear Sol 15 ML BOT EA EYE SCH ×3 (08:32→20:38)
[2021-01-15] MEDS: Spironolactone 25 MG TAB PO SCH (08:32)
[2021-01-15] MEDS: Potassium Chloride 20 MEQ TAB PO SCH (08:32)
[2021-01-15] MEDS ORDERED: traMADol HCl 50 MG TAB PO PRN (18:02)
[2021-01-15] MEDS: Linezolid 600 MG TAB PO SCH (18:10)
[2021-01-16] MEDS: Linezolid 600 MG TAB PO SCH (05:24)
[2021-01-16] MEDS: Potassium Chloride 20 MEQ TAB PO SCH (09:19)
[2021-01-16] MEDS: Spironolactone 25 MG TAB PO SCH (09:19)
[2021-01-16] MEDS: FLUoxetine HCl 10 MG CAP PO SCH (09:19)
[2021-01-16] MEDS: Artificial Tear Sol 15 ML BOT EA EYE SCH ×3 (09:20→21:49)
[2021-01-17] MEDS: Spironolactone 25 MG TAB PO SCH (08:12)
[2021-01-17] MEDS: FLUoxetine HCl 10 MG CAP PO SCH (08:13)
[2021-01-17] MEDS: Potassium Chloride 20 MEQ TAB PO SCH (08:13)
[2021-01-17] MEDS: Artificial Tear Sol 15 ML BOT EA EYE SCH ×3 (08:13→21:14)
[2021-01-18] MEDS: FLUoxetine HCl 10 MG CAP PO SCH (08:43)
[2021-01-18] MEDS: Potassium Chloride 20 MEQ TAB PO SCH (08:43)
[2021-01-18] MEDS: Spironolactone 25 MG TAB PO SCH (08:44)
[2021-01-18] MEDS: Artificial Tear Sol 15 ML BOT EA EYE SCH ×3 (08:45→21:24)
[2021-01-19] MEDS: Artificial Tear Sol 15 ML BOT EA EYE SCH ×3 (09:17→21:19)
[2021-01-19] MEDS: FLUoxetine HCl 10 MG CAP PO SCH (09:17)
[2021-01-19] MEDS: Potassium Chloride 20 MEQ TAB PO SCH (09:18)
[2021-01-19] MEDS: Spironolactone 25 MG TAB PO SCH (09:18)
[2021-01-20] MEDS: Spironolactone 25 MG TAB PO SCH (08:06)
[2021-01-20] MEDS: Artificial Tear Sol 15 ML BOT EA EYE SCH ×3 (08:06→21:52)
[2021-01-20] MEDS: Potassium Chloride 20 MEQ TAB PO SCH (08:07)
[2021-01-20] MEDS: FLUoxetine HCl 10 MG CAP PO SCH (08:07)
[2021-01-21] MEDS: Spironolactone 25 MG TAB PO SCH (07:54)
[2021-01-21] MEDS: Potassium Chloride 20 MEQ TAB PO SCH (07:54)
[2021-01-21] MEDS: FLUoxetine HCl 10 MG CAP PO SCH (07:54)
[2021-01-21] MEDS: Artificial Tear Sol 15 ML BOT EA EYE SCH ×3 (07:58→20:14)
[2021-01-21 09:59] LABS: #Basophils 0.1 thou/uL (0.0-0.2); #Eosinphils 0.2 thou/uL (0.0-0.7); #Lymphocytes 1.7 thou/uL (1.20-3.40); #Monocytes 0.9 thou/uL (0.11-0.59); #Neutrophils 3.5 thou/uL (1.40-6.50); %Basophils 1.3 % (0.0-1.0); %Eosinophils 3.5 % (0.0-10.0); %Monocytes 13.3 % (0.0-10.0); %Neutrophils 54.9 % (42.0-75.0); Hemoglobin 10.5 g/dL (14.0-18.0); Mean Corpuscular HGB CONC 32.8 g/dL (32.0-36.0); Mean Corpuscular Hemoglobin 31.1 pg (27.0-31.0); Mean Corpuscular Volume 94.9 fL (78.0-98.0); Mean Platelet Volume 6.6 fL (7.4-10.4); Platelet Count 195 thou/uL (130-400); RBC Distribution Width 17.4 % (11.5-14.5); Red Blood Cell (RBC) Count 3.37 mill/uL (4.70-6.10); White Blood Cell (WBC) Count 6.4 thou/uL (4.8-10.8)
[2021-01-21 10:19] LABS: Anion Gap 9 mmol/L (10-20); BUN (Urea Nitrogen) 8 mg/dL (8.4-25.7); Calc. Creatinine Clearance 163 mL/min (70-130); Calcium 7.6 mg/dL (7.8-10.44); Carbon Dioxide 21 mmol/L (22-29); Chloride 105 mmol/L (98-107); Glucose 71 mg/dL (70-105); Potassium 3.5 mmol/L (3.5-5.1); Sodium 131 mmol/L (136-145)
[2021-01-21] MEDS: traMADol HCl 50 MG TAB PO PRN (13:11)
[2021-01-21] MEDS ORDERED: Sodium Chloride 0.9% 1,000 ML IV SCH (15:15)
[2021-01-22 06:05] LABS: Anion Gap 10 mmol/L (10-20); BUN (Urea Nitrogen) 6 mg/dL (8.4-25.7); Calc. Creatinine Clearance 198 mL/min (70-130); Calcium 7.3 mg/dL (7.8-10.44); Carbon Dioxide 13 mmol/L (22-29); Chloride 109 mmol/L (98-107); Glucose 72 mg/dL (70-105); Potassium 3.9 mmol/L (3.5-5.1); Sodium 128 mmol/L (136-145)
[2021-01-22] MEDS: Potassium Chloride 20 MEQ TAB PO SCH (08:15)
[2021-01-22] MEDS: FLUoxetine HCl 10 MG CAP PO SCH (08:16)
[2021-01-22] MEDS: Artificial Tear Sol 15 ML BOT EA EYE SCH ×3 (08:16→20:45)
[2021-01-22] MEDS: Spironolactone 25 MG TAB PO SCH (08:16)
[2021-01-22] MEDS: Ondansetron PF 4 MG/2 ML Vial IVP PRN (22:21)
[2021-01-23] MEDS: Spironolactone 25 MG TAB PO SCH (08:52)
[2021-01-23] MEDS: Potassium Chloride 20 MEQ TAB PO SCH (08:53)
[2021-01-23] MEDS: Artificial Tear Sol 15 ML BOT EA EYE SCH ×3 (08:53→20:24)
[2021-01-23] MEDS: FLUoxetine HCl 10 MG CAP PO SCH (08:53)
[2021-01-23] MEDS: traMADol HCl 50 MG TAB PO PRN (20:27)
[2021-01-24 05:59] LABS: #Basophils 0.1 thou/uL (0.0-0.2); #Eosinphils 0.2 thou/uL (0.0-0.7); #Lymphocytes 1.5 thou/uL (1.20-3.40); #Monocytes 0.8 thou/uL (0.11-0.59); #Neutrophils 3.1 thou/uL (1.40-6.50); %Basophils 1.1 % (0.0-1.0); %Eosinophils 4.3 % (0.0-10.0); %Lymphocytes 26.8 % (21.0-51.0); %Monocytes 13.2 % (0.0-10.0); %Neutrophils 54.7 % (42.0-75.0); Mean Corpuscular HGB CONC 31.9 g/dL (32.0-36.0); Mean Corpuscular Hemoglobin 30.4 pg (27.0-31.0); Mean Corpuscular Volume 95.2 fL (78.0-98.0); Mean Platelet Volume 6.7 fL (7.4-10.4); Platelet Count 154 thou/uL (130-400); RBC Distribution Width 17.5 % (11.5-14.5); Red Blood Cell (RBC) Count 2.96 mill/uL (4.70-6.10); White Blood Cell (WBC) Count 5.7 thou/uL (4.8-10.8)
[2021-01-24 06:23] LABS: Anion Gap 8 mmol/L (10-20); BUN (Urea Nitrogen) 10 mg/dL (8.4-25.7); Calc. Creatinine Clearance 198 mL/min (70-130); Calcium 7.3 mg/dL (7.8-10.44); Carbon Dioxide 22 mmol/L (22-29); Chloride 106 mmol/L (98-107); Glucose 77 mg/dL (70-105); Potassium 3.7 mmol/L (3.5-5.1); Sodium 132 mmol/L (136-145)
[2021-01-24] MEDS: Potassium Chloride 20 MEQ TAB PO SCH (09:17)
[2021-01-24] MEDS: Spironolactone 25 MG TAB PO SCH (09:17)
[2021-01-24] MEDS: Artificial Tear Sol 15 ML BOT EA EYE SCH ×3 (09:18→20:40)
[2021-01-24] MEDS: FLUoxetine HCl 10 MG CAP PO SCH (09:18)
[2021-01-25] MEDS: Spironolactone 25 MG TAB PO SCH (08:50)
[2021-01-25] MEDS: Potassium Chloride 20 MEQ TAB PO SCH (08:50)
[2021-01-25] MEDS: FLUoxetine HCl 10 MG CAP PO SCH (08:50)
[2021-01-25] MEDS: Artificial Tear Sol 15 ML BOT EA EYE SCH ×3 (08:51→20:15)
[2021-01-26] MEDS: Spironolactone 25 MG TAB PO SCH (08:20)
[2021-01-26] MEDS: FLUoxetine HCl 10 MG CAP PO SCH (08:20)
[2021-01-26] MEDS: Potassium Chloride 20 MEQ TAB PO SCH (08:20)
[2021-01-26] MEDS: Artificial Tear Sol 15 ML BOT EA EYE SCH ×3 (08:21→20:06)
[2021-01-27 08:05] VITALS: BP 145/88; TEMP 97.9
[2021-01-27] MEDS: Potassium Chloride 20 MEQ TAB PO SCH (08:07)
[2021-01-27] MEDS: Spironolactone 25 MG TAB PO SCH (08:07)
[2021-01-27] MEDS: FLUoxetine HCl 10 MG CAP PO SCH (08:08)
[2021-01-27] MEDS: Artificial Tear Sol 15 ML BOT EA EYE SCH (08:09)
== END 2021-01-27 15:02 | DRG 56 ==
LOC: ERS 15:37 → 2SE 20:33 → T4-B 12-27 18:45
PROVIDERS: ADMIT Student in an Organized Health Care Education/Training Program; ATTEND Hospitalist
PROC: 0DJ08ZZ Inspection of Upper Intestinal Tract, Via Natural or Artificial Opening Endoscopic (ICD-10-PCS; principal; 2020-12-18)
DX: G91.1 Obstructive hydrocephalus (principal); K83.1 Obstruction of bile duct; J69.0 Pneumonitis due to inhalation of food and vomit; G93.49 Other encephalopathy; E87.1 Hypo-osmolality and hyponatremia; R18.8 Other ascites; I47.1 Supraventricular tachycardia; D68.9 Coagulation defect, unspecified; E46 Unspecified protein-calorie malnutrition; K92.2 Gastrointestinal hemorrhage, unspecified; K52.1 Toxic gastroenteritis and colitis; N39.0 Urinary tract infection, site not specified; E87.2 Acidosis; J44.9 Chronic obstructive pulmonary disease, unspecified; K74.60 Unspecified cirrhosis of liver; F41.9 Anxiety disorder, unspecified; K72.90 Hepatic failure, unspecified without coma; F43.10 Post-traumatic stress disorder, unspecified; D64.9 Anemia, unspecified; B88.8 Other specified infestations; R53.81 Other malaise; G31.84 Mild cognitive impairment of uncertain or unknown etiology; R00.1 Bradycardia, unspecified; E87.6 Hypokalemia; B18.2 Chronic viral hepatitis C; F32.9 Major depressive disorder, single episode, unspecified; I10 Essential (primary) hypertension; Z20.822 Contact with and (suspected) exposure to COVID-19; I48.0 Paroxysmal atrial fibrillation; R33.9 Retention of urine, unspecified; E83.51 Hypocalcemia; T47.3X5A Adverse effect of saline and osmotic laxatives, initial encounter; Z88.8 Allergy status to other drugs, medicaments and biological substances; Z90.49 Acquired absence of other specified parts of digestive tract; Z87.891 Personal history of nicotine dependence; Z68.24 Body mass index [BMI] 24.0-24.9, adult
CPT/HCPCS: 36415; 36416; 70450; 70553; 71045; 71046; 74177; 76705; 80048; 80053; 80076; 81001; 81003; 81015; 82140; 82248; 82274; 82550; 83690; 83735; 84132; 84443; 84484; 85025; 85027; 85610; 85730; 86850; 86900; 86901; 87077; 87086; 87186; 87635; 90471; 90732; 93005; 93010; 93306; 96365; 96375; A9579; C9113; G0009; J0290; J0456; J0696; J1885; J2020; J2270; J2354; J2405; J2543; J2704; J3480; J3490; U0003; U0005

== ENCOUNTER 2021-02-01 02:19 | Inpatient (IN) | payer OTHER, SELFPAY ==
[2021-02-01] MEDS ORDERED: cefTRIAXone\\ROCEPHIN 1 GM VIAL ONE (02:41)
[2021-02-01] MEDS ORDERED: Ondansetron PF 4 MG/2 ML Vial ONE ×2 (02:50→04:44)
[2021-02-01 03:23] LABS: #Basophils 0.1 thou/uL (0.0-0.2); #Eosinphils 0.1 thou/uL (0.0-0.7); #Lymphocytes 1.2 thou/uL (1.20-3.40); #Monocytes 0.7 thou/uL (0.11-0.59); #Neutrophils 4.1 thou/uL (1.40-6.50); %Eosinophils 1.2 % (0.0-10.0); %Monocytes 11.1 % (0.0-10.0); %Neutrophils 66.9 % (42.0-75.0); Hemoglobin 8.3 g/dL (14.0-18.0); Mean Corpuscular Hemoglobin 30.3 pg (27.0-31.0); Mean Corpuscular Volume 94.9 fL (78.0-98.0); Mean Platelet Volume 7.2 fL (7.4-10.4); Platelet Count 213 thou/uL (130-400); RBC Distribution Width 17.4 % (11.5-14.5); Red Blood Cell (RBC) Count 2.72 mill/uL (4.70-6.10); White Blood Cell (WBC) Count 6.2 thou/uL (4.8-10.8)
[2021-02-01 03:25] LABS: INR-International Normal Ratio 2.3; PTT 40.7 sec (22.9-36.1); Prothrombin Time 25.7 sec (12.0-14.7)
[2021-02-01 03:34] LABS: ALT (SGPT) 24 U/L (8-55); AST (SGOT) 49 U/L (5-34); Albumin 1.5 g/dL (3.5-5.0); Alkaline Phosphatase 101 U/L (40-110); Anion Gap 9 mmol/L (10-20); BUN (Urea Nitrogen) 27 mg/dL (8.4-25.7); Bilirubin, Total 3.7 mg/dL (0.2-1.2); Calc. Creatinine Clearance 0 mL/min (70-130); Calcium 7.6 mg/dL (7.8-10.44); Carbon Dioxide 22 mmol/L (22-29); Chloride 104 mmol/L (98-107); Globulin 4.8 g/dL (2.4-3.5); Glucose 93 mg/dL (70-105); Potassium 4.3 mmol/L (3.5-5.1); Protein, Total 6.3 g/dL (6.0-8.3); Sodium 131 mmol/L (136-145)
[2021-02-01] MEDS ORDERED: Pantoprazole 40 MG VIAL ONE (03:36)
[2021-02-01] MEDS ORDERED: Octreotide Acetate 1,250 MCG in Sodium Chloride 0.9% 250 ML 250 ML IVPB SCH (05:30)
[2021-02-01 05:56] LABS: SARS-CoV-2 NAA Rapid Test Not Detected (NotDetected)
[2021-02-01 06:57] VITALS: BMI 23.0
[2021-02-01 07:00] LABS: Lactic Acid 4.2 mmol/L (0.5-2.2)
[2021-02-01] MEDS ORDERED: Ondansetron ODT 4 MG TAB SL PRN (07:15)
[2021-02-01] MEDS ORDERED: Ondansetron PF 4 MG/2 ML Vial IVP PRN (07:15)
[2021-02-01 10:37] LABS: Hemoglobin 8.5 g/dL (14.0-18.0); Mean Corpuscular HGB CONC 30.7 g/dL (32.0-36.0); Mean Corpuscular Hemoglobin 28.5 pg (27.0-31.0); Mean Corpuscular Volume 93.1 fL (78.0-98.0); RBC Distribution Width 17.4 % (11.5-14.5); Red Blood Cell (RBC) Count 2.98 mill/uL (4.70-6.10)
[2021-02-01 11:30] LABS: Band 3 % (5-11); Burr Cells SLIGHT = 2-5 cells (100X) (0-1/hpf); Hypochromia SLIGHT = 6-15 cells (100X) (0-5/hpf); Lymphocytes 9 % (21-51); MDiff Complete? YES; Mean Platelet Volume 7.7 fL (7.4-10.4); Monocytes 6 % (0-10); Neutrophil 82 % (42-75); Platelet Count 194 thou/uL (130-400); Platelet Morphology Comment Appears Adequate; Polychromasia SLIGHT = 2-3 cells (100X) (0-2/hpf); White Blood Cell (WBC) Count 8.5 thou/uL (4.8-10.8)
[2021-02-01] MEDS: Pantoprazole 80 MG in Sodium Chloride 0.9% 100 ML IVPB SCH ×2 (14:52→22:55)
[2021-02-01] MEDS ORDERED: GoLYTELY 4,000 ml Bottle PO SCH (15:00)
[2021-02-01 17:09] LABS: Mean Corpuscular HGB CONC 31.2 g/dL (32.0-36.0); Mean Corpuscular Hemoglobin 29.7 pg (27.0-31.0); Mean Corpuscular Volume 95.1 fL (78.0-98.0); Mean Platelet Volume 7.3 fL (7.4-10.4); Platelet Count 198 thou/uL (130-400); Red Blood Cell (RBC) Count 2.68 mill/uL (4.70-6.10); White Blood Cell (WBC) Count 9.6 thou/uL (4.8-10.8)
[2021-02-01] MEDS: Sodium Chloride 0.9% 1,000 ML IV SCH (17:23)
[2021-02-01 17:30] LABS: Anisocytosis SLIGHT = 6-15 cells (100X) (0-5/hpf); Eosinophils 1 % (0-10); Lymphocytes 16 % (21-51); MDiff Complete? YES; Monocytes 15 % (0-10); Neutrophil 68 % (42-75); Platelet Morphology Comment Appears Adequate; Polychromasia SLIGHT = 2-3 cells (100X) (0-2/hpf)
[2021-02-02 04:04] LABS: Band 1 % (5-11); Eosinophils 1 % (0-10); Hemoglobin 6.6 g/dL (14.0-18.0); Hypochromia SLIGHT = 6-15 cells (100X) (0-5/hpf); Lymphocytes 13 % (21-51); MDiff Complete? YES; Mean Corpuscular HGB CONC 32.9 g/dL (32.0-36.0); Mean Corpuscular Hemoglobin 30.8 pg (27.0-31.0); Mean Corpuscular Volume 93.8 fL (78.0-98.0); Mean Platelet Volume 7.3 fL (7.4-10.4); Monocytes 10 % (0-10); Neutrophil 75 % (42-75); Platelet Count 172 thou/uL (130-400); Platelet Morphology Comment Appears Adequate; RBC Distribution Width 17.9 % (11.5-14.5); Red Blood Cell (RBC) Count 2.14 mill/uL (4.70-6.10)
[2021-02-02] MEDS: Sodium Chloride 0.9% 1,000 ML IV SCH ×2 (04:23→16:29)
[2021-02-02] MEDS ORDERED: Octreotide Acetate 1,250 MCG in Sodium Chloride 0.9% 250 ML 250 ML IVPB SCH (08:15)
[2021-02-02] MEDS ORDERED: Pantoprazole 80 MG in Sodium Chloride 0.9% 100 ML IVPB SCH (08:15)
[2021-02-02] MEDS: Pantoprazole 80 MG in Sodium Chloride 0.9% 100 ML IVPB SCH (08:53)
[2021-02-02] MEDS: Morphine 2 MG/ML VIAL SLOW IVP PRN ×2 (08:54→16:27)
[2021-02-02] MEDS: FLUoxetine HCl 10 MG CAP PO SCH (08:55)
[2021-02-02] MEDS ORDERED: Ketamine 50 MG/ML (10ML VIAL) ONE (14:31)
[2021-02-02] MEDS ORDERED: PROPOFOL 200 MG/20 ML VIAL ONE (14:43)
[2021-02-02 16:10] LABS: Hemoglobin 7.7 g/dL (14.0-18.0)
[2021-02-03 05:53] LABS: Band 1 % (5-11); Eosinophils 4 % (0-10); Hemoglobin 6.7 g/dL (14.0-18.0); Lymphocytes 21 % (21-51); MDiff Complete? YES; Mean Corpuscular HGB CONC 33.6 g/dL (32.0-36.0); Mean Corpuscular Hemoglobin 31.6 pg (27.0-31.0); Mean Corpuscular Volume 93.8 fL (78.0-98.0); Mean Platelet Volume 7.2 fL (7.4-10.4); Monocytes 1 % (0-10); Neutrophil 73 % (42-75); Nucleated RBC 1 % (0); Platelet Count 125 thou/uL (130-400); Platelet Morphology Comment Appears Decreased; RBC Distribution Width 17.2 % (11.5-14.5); Red Blood Cell (RBC) Count 2.11 mill/uL (4.70-6.10); White Blood Cell (WBC) Count 5.5 thou/uL (4.8-10.8)
[2021-02-03] MEDS: Sodium Chloride 0.9% 1,000 ML IV SCH ×2 (06:22→11:30)
[2021-02-03] MEDS: Pantoprazole 40 MG VIAL IVP SCH (08:18)
[2021-02-03] MEDS: FLUoxetine HCl 10 MG CAP PO SCH (08:18)
[2021-02-03] MEDS ORDERED: Adenosine 6 MG/2 ML VIAL ONE (10:05)
[2021-02-03 10:26] LABS: Hemoglobin 8.9 g/dL (14.0-18.0)
[2021-02-03] MEDS ORDERED: Adenosine 6 MG/2 ML VIAL IVP SCH (10:30)
[2021-02-03 10:47] LABS: Anion Gap 8 mmol/L (10-20); BUN (Urea Nitrogen) 9 mg/dL (8.4-25.7); Calc. Creatinine Clearance 139 mL/min (70-130); Calcium 7.1 mg/dL (7.8-10.44); Carbon Dioxide 18 mmol/L (22-29); Chloride 105 mmol/L (98-107); Glucose 74 mg/dL (70-105); Magnesium 1.7 mg/dL (1.6-2.6); Potassium 3.4 mmol/L (3.5-5.1); Sodium 128 mmol/L (136-145)
[2021-02-03] MEDS ORDERED: Digoxin 0.5 MG/2 ML AMP SLOW IVP SCH (14:00)
[2021-02-03 15:11] LABS: Hemoglobin 8.6 g/dL (14.0-18.0)
[2021-02-03 19:49] LABS: Hemoglobin 9.8 g/dL (14.0-18.0)
[2021-02-03] MEDS: Flecainide 50 MG TAB PO SCH (21:25)
[2021-02-04 05:16] LABS: ALT (SGPT) 40 U/L (8-55); AST (SGOT) 114 U/L (5-34); Albumin 1.4 g/dL (3.5-5.0); Alkaline Phosphatase 98 U/L (40-110); Anion Gap 6 mmol/L (10-20); BUN (Urea Nitrogen) 5 mg/dL (8.4-25.7); Bilirubin, Total 3.9 mg/dL (0.2-1.2); Calc. Creatinine Clearance 159 mL/min (70-130); Calcium 6.7 mg/dL (7.8-10.44); Carbon Dioxide 20 mmol/L (22-29); Chloride 103 mmol/L (98-107); Glucose 79 mg/dL (70-105); Lipase 33 U/L (8-78); Potassium 3.1 mmol/L (3.5-5.1); Protein, Total 5.4 g/dL (6.0-8.3); Sodium 126 mmol/L (136-145)
[2021-02-04 05:20] LABS: Anisocytosis SLIGHT = 6-15 cells (100X) (0-5/hpf); Band 3 % (5-11); Eosinophils 1 % (0-10); Hemoglobin 8.1 g/dL (14.0-18.0); Lymphocytes 10 % (21-51); MDiff Complete? YES; Mean Corpuscular HGB CONC 34.1 g/dL (32.0-36.0); Mean Corpuscular Hemoglobin 31.6 pg (27.0-31.0); Mean Corpuscular Volume 92.6 fL (78.0-98.0); Monocytes 8 % (0-10); Neutrophil 78 % (42-75); Platelet Count 135 thou/uL (130-400); Platelet Morphology Comment Appears Adequate; Polychromasia SLIGHT = 2-3 cells (100X) (0-2/hpf); RBC Distribution Width 17.3 % (11.5-14.5); Red Blood Cell (RBC) Count 2.57 mill/uL (4.70-6.10); White Blood Cell (WBC) Count 7.7 thou/uL (4.8-10.8)
[2021-02-04] MEDS ORDERED: Lisinopril 5 MG TAB PO SCH (09:00)
[2021-02-04] MEDS: FLUoxetine HCl 10 MG CAP PO SCH (09:51)
[2021-02-04] MEDS: Flecainide 50 MG TAB PO SCH ×2 (09:51→20:17)
[2021-02-04] MEDS: Pantoprazole 40 MG VIAL IVP SCH (09:52)
[2021-02-04] MEDS: Sodium Chloride 0.9% 1,000 ML IV SCH (09:54)
[2021-02-04] MEDS ORDERED: Potassium Chloride 20 MEQ TAB PO SCH (10:30)
[2021-02-04 17:16] LABS: Creatinine, Urine 63.54 mg/dL (63-166); Sodium, Urine Less than 20 mmol/L (Not Available)
[2021-02-04 20:14] LABS: Hemoglobin 8.1 g/dL (14.0-18.0)
[2021-02-05] MEDS: Sodium Chloride 0.9% 1,000 ML IV SCH ×2 (00:08→09:45)
[2021-02-05 04:13] LABS: #Basophils 0.1 thou/uL (0.0-0.2); #Eosinphils 0.2 thou/uL (0.0-0.7); #Lymphocytes 1.4 thou/uL (1.20-3.40); #Monocytes 0.8 thou/uL (0.11-0.59); #Neutrophils 3.2 thou/uL (1.40-6.50); %Eosinophils 3.4 % (0.0-10.0); %Lymphocytes 24.4 % (21.0-51.0); %Monocytes 14.8 % (0.0-10.0); %Neutrophils 56.4 % (42.0-75.0); Hemoglobin 7.5 g/dL (14.0-18.0); Mean Corpuscular Hemoglobin 30.7 pg (27.0-31.0); Mean Corpuscular Volume 93.1 fL (78.0-98.0); Mean Platelet Volume 7.1 fL (7.4-10.4); Platelet Count 129 thou/uL (130-400); RBC Distribution Width 17.5 % (11.5-14.5); Red Blood Cell (RBC) Count 2.44 mill/uL (4.70-6.10); White Blood Cell (WBC) Count 5.7 thou/uL (4.8-10.8)
[2021-02-05 04:30] LABS: Anion Gap 7 mmol/L (10-20); BUN (Urea Nitrogen) 4 mg/dL (8.4-25.7); Calc. Creatinine Clearance 159 mL/min (70-130); Carbon Dioxide 19 mmol/L (22-29); Chloride 105 mmol/L (98-107); Glucose 98 mg/dL (70-105); Potassium 3.3 mmol/L (3.5-5.1); Sodium 128 mmol/L (136-145)
[2021-02-05] MEDS ORDERED: Electrolyte Replacement Protocol 1 EACH FS SCH (07:45)
[2021-02-05] MEDS ORDERED: Potassium Chloride 20 MEQ TAB PO SCH (08:00)
[2021-02-05] MEDS: FLUoxetine HCl 10 MG CAP PO SCH (09:48)
[2021-02-05] MEDS: Flecainide 50 MG TAB PO SCH ×2 (09:48→20:15)
[2021-02-05] MEDS: Pantoprazole 40 MG VIAL IVP SCH (09:49)
[2021-02-05 14:41] LABS: Hemoglobin 8.9 g/dL (14.0-18.0)
[2021-02-06 05:23] LABS: Anion Gap 6 mmol/L (10-20); BUN (Urea Nitrogen) 4 mg/dL (8.4-25.7); Calc. Creatinine Clearance 165 mL/min (70-130); Carbon Dioxide 18 mmol/L (22-29); Chloride 106 mmol/L (98-107); Glucose 93 mg/dL (70-105); Potassium 3.2 mmol/L (3.5-5.1); Sodium 127 mmol/L (136-145)
[2021-02-06] MEDS: Sodium Chloride 0.9% 1,000 ML IV SCH (06:02)
[2021-02-06 06:07] LABS: Band 7 % (5-11); Eosinophils 1 % (0-10); Hemoglobin 7.5 g/dL (14.0-18.0); Lymphocytes 8 % (21-51); MDiff Complete? YES; Mean Corpuscular HGB CONC 33.1 g/dL (32.0-36.0); Mean Corpuscular Hemoglobin 31.2 pg (27.0-31.0); Mean Corpuscular Volume 94.1 fL (78.0-98.0); Mean Platelet Volume 7.2 fL (7.4-10.4); Monocytes 2 % (0-10); Neutrophil 80 % (42-75); Platelet Count 124 thou/uL (130-400); RBC Distribution Width 17.7 % (11.5-14.5); Red Blood Cell (RBC) Count 2.41 mill/uL (4.70-6.10); White Blood Cell (WBC) Count 5.3 thou/uL (4.8-10.8)
[2021-02-06] MEDS ORDERED: Potassium Chloride 20 MEQ TAB PO SCH (06:45)
[2021-02-06] MEDS: Flecainide 50 MG TAB PO SCH ×2 (08:56→21:28)
[2021-02-06] MEDS: FLUoxetine HCl 10 MG CAP PO SCH (08:57)
[2021-02-06] MEDS: Pantoprazole 40 MG VIAL IVP SCH (08:58)
[2021-02-07 05:10] LABS: Anion Gap 9 mmol/L (10-20); BUN (Urea Nitrogen) 4 mg/dL (8.4-25.7); Calc. Creatinine Clearance 156 mL/min (70-130); Calcium 7.2 mg/dL (7.8-10.44); Carbon Dioxide 19 mmol/L (22-29); Chloride 103 mmol/L (98-107); Glucose 82 mg/dL (70-105); Potassium 3.4 mmol/L (3.5-5.1); Sodium 128 mmol/L (136-145)
[2021-02-07 05:21] LABS: Band 1 % (5-11); Eosinophils 4 % (0-10); Hemoglobin 7.8 g/dL (14.0-18.0); Lymphocytes 20 % (21-51); MDiff Complete? YES; Mean Corpuscular HGB CONC 31.1 g/dL (32.0-36.0); Mean Corpuscular Hemoglobin 29.3 pg (27.0-31.0); Mean Corpuscular Volume 94.2 fL (78.0-98.0); Monocytes 5 % (0-10); Neutrophil 70 % (42-75); Platelet Count 146 thou/uL (130-400); Platelet Morphology Comment Appears Adequate; RBC Distribution Width 17.6 % (11.5-14.5); Red Blood Cell (RBC) Count 2.68 mill/uL (4.70-6.10); White Blood Cell (WBC) Count 5.1 thou/uL (4.8-10.8)
[2021-02-07] MEDS ORDERED: Spironolactone 25 MG TAB PO SCH (08:00)
[2021-02-07] MEDS ORDERED: Potassium Chloride 20 MEQ TAB PO SCH (08:45)
[2021-02-07] MEDS: FLUoxetine HCl 10 MG CAP PO SCH (08:59)
[2021-02-07] MEDS: Flecainide 50 MG TAB PO SCH ×2 (09:00→22:05)
[2021-02-07] MEDS ORDERED: Furosemide 20 MG TAB PO SCH (09:00)
[2021-02-07] MEDS ORDERED: Magnesium 2 GM/50 ML 2 GM in Premix Bag 1 BAG IVPB SCH (12:00)
[2021-02-07] MEDS ORDERED: Magnesium Sulfate 2 GM in Sodium Chloride 0.9% 100 ML IVPB SCH (13:45)
[2021-02-08] MEDS: Flecainide 50 MG TAB PO SCH (08:12)
[2021-02-08] MEDS: FLUoxetine HCl 10 MG CAP PO SCH (08:13)
[2021-02-08 10:09] LABS: Anion Gap 8 mmol/L (10-20); BUN (Urea Nitrogen) 5 mg/dL (8.4-25.7); Calc. Creatinine Clearance 183 mL/min (70-130); Calcium 7.5 mg/dL (7.8-10.44); Carbon Dioxide 20 mmol/L (22-29); Chloride 104 mmol/L (98-107); Glucose 108 mg/dL (70-105); Magnesium 1.8 mg/dL (1.6-2.6); Potassium 3.2 mmol/L (3.5-5.1); Sodium 129 mmol/L (136-145)
[2021-02-08] MEDS ORDERED: Magnesium 2 GM/50 ML 2 GM in Premix Bag 1 BAG IVPB SCH (10:30)
[2021-02-08] MEDS ORDERED: Potassium Chloride 20 MEQ TAB PO SCH (10:45)
[2021-02-08 11:50] VITALS: BP 114/62; TEMP 98
== END 2021-02-08 14:00 | DRG 433 ==
LOC: ERS 02:19 → OBSVTOIN 04:40 → IMCU/EMU 04:40 → 2NO 02-05 17:29
PROVIDERS: ADMIT Internal Medicine; ATTEND Hospitalist
PROC: 0DJ08ZZ Inspection of Upper Intestinal Tract, Via Natural or Artificial Opening Endoscopic (ICD-10-PCS; 2021-02-01)
PROC: 0DJD8ZZ Inspection of Lower Intestinal Tract, Via Natural or Artificial Opening Endoscopic (ICD-10-PCS; 2021-02-01)
PROC: 30233N1 Transfusion of Nonautologous Red Blood Cells into Peripheral Vein, Percutaneous Approach (ICD-10-PCS; principal; 2021-02-02)
DX: K70.31 Alcoholic cirrhosis of liver with ascites (principal); G91.1 Obstructive hydrocephalus; D62 Acute posthemorrhagic anemia; D68.4 Acquired coagulation factor deficiency; E87.1 Hypo-osmolality and hyponatremia; I47.1 Supraventricular tachycardia; K91.61 Intraoperative hemorrhage and hematoma of a digestive system organ or structure complicating a digestive system procedure; Z20.822 Contact with and (suspected) exposure to COVID-19; K76.89 Other specified diseases of liver; J44.9 Chronic obstructive pulmonary disease, unspecified; F41.9 Anxiety disorder, unspecified; F43.10 Post-traumatic stress disorder, unspecified; B18.2 Chronic viral hepatitis C; I48.0 Paroxysmal atrial fibrillation; K64.4 Residual hemorrhoidal skin tags; K64.8 Other hemorrhoids; N18.9 Chronic kidney disease, unspecified; F10.10 Alcohol abuse, uncomplicated; E86.1 Hypovolemia; E77.8 Other disorders of glycoprotein metabolism; E88.09 Other disorders of plasma-protein metabolism, not elsewhere classified; Y83.8 Other surgical procedures as the cause of abnormal reaction of the patient, or of later complication, without mention of misadventure at the time of the procedure; Z95.828 Presence of other vascular implants and grafts; Z79.899 Other long term (current) drug therapy; Z88.8 Allergy status to other drugs, medicaments and biological substances; Z90.49 Acquired absence of other specified parts of digestive tract; K72.10 Chronic hepatic failure without coma
CPT/HCPCS: 36415; 36430; 80048; 80053; 82105; 82378; 82570; 83605; 83690; 83735; 84300; 85007; 85025; 85027; 85610; 85730; 86301; 86850; 86900; 86901; 93005; 93010; 96365; 96366; 96367; 96375; C9113; G0378; J0153; J0696; J1160; J2270; J2354; J2405; J2704; J3475; J3490; J7050; P9016; U0002

== ENCOUNTER 2021-02-22 08:56 | Emergency (ER) | payer OTHER, SELFPAY ==
[2021-02-22 09:43] LABS: Hemoglobin 10.1 g/dL (14.0-18.0); Mean Corpuscular HGB CONC 30.1 g/dL (32.0-36.0); Mean Corpuscular Hemoglobin 27.3 pg (27.0-31.0); Mean Corpuscular Volume 90.9 fL (78.0-98.0); Mean Platelet Volume 6.8 fL (7.4-10.4); Platelet Count 220 thou/uL (130-400); RBC Distribution Width 17.6 % (11.5-14.5); White Blood Cell (WBC) Count 6.2 thou/uL (4.8-10.8)
[2021-02-22 09:58] LABS: ALT (SGPT) 78 U/L (8-55); AST (SGOT) 274 U/L (5-34); Alkaline Phosphatase 145 U/L (40-110); Anion Gap 10 mmol/L (10-20); BUN (Urea Nitrogen) 11 mg/dL (8.4-25.7); Bilirubin, Total 4.6 mg/dL (0.2-1.2); Calc. Creatinine Clearance 0 mL/min (70-130); Calcium 8.3 mg/dL (7.8-10.44); Carbon Dioxide 19 mmol/L (22-29); Chloride 104 mmol/L (98-107); Globulin 5.8 g/dL (2.4-3.5); Glucose 85 mg/dL (70-105); Potassium 4.4 mmol/L (3.5-5.1); Protein, Total 7.8 g/dL (6.0-8.3); Sodium 129 mmol/L (136-145)
[2021-02-22 10:38] LABS: Band 1 % (5-11); Lymphocytes 13 % (21-51); MDiff Complete? YES; Monocytes 16 % (0-10); Neutrophil 70 % (42-75); Polychromasia SLIGHT = 2-3 cells (100X) (0-2/hpf)
[2021-02-22 12:13] LABS: Troponin I 0.021 ng/mL (< 0.028)
[2021-02-22 15:10] LABS: SARS-CoV-2 PCR by NAA Not Detected (NotDetected)
== END 2021-02-22 14:18 ==
LOC: ERS 08:56
DX: R07.2 Precordial pain (principal); J02.9 Acute pharyngitis, unspecified; Z20.822 Contact with and (suspected) exposure to COVID-19; D72.810 Lymphocytopenia; D64.9 Anemia, unspecified; I10 Essential (primary) hypertension; J44.9 Chronic obstructive pulmonary disease, unspecified; K74.60 Unspecified cirrhosis of liver; Z87.891 Personal history of nicotine dependence; Z79.899 Other long term (current) drug therapy
CPT/HCPCS: 36415; 71045; 80053; 83880; 84484; 85025; 87635; 93005; 94760; U0003; U0005

== ENCOUNTER 2021-03-02 13:38 | Inpatient (IN) | payer OTHER, SELFPAY ==
[2021-03-02] MEDS ORDERED: Bisacodyl 10 MG SUPP PR PRN (16:52)
[2021-03-02] MEDS ORDERED: Sodium Chloride 0.9% 1,000 ML IV SCH (17:00)
[2021-03-02] MEDS ORDERED: cefTRIAXone\\ROCEPHIN 1 GM in Sodium Chloride 0.9% 100 ML IVPB SCH (18:00)
[2021-03-02] MEDS ORDERED: Linezolid 600 MG in Premix Bag 1 BAG IVPB SCH (21:00)
[2021-03-02] MEDS: Linezolid 600 MG in Premix Bag 1 BAG IVPB SCH (21:28)
[2021-03-02] MEDS: Piperacillin/Tazobactam 4.5 GM in Sodium Chloride 0.9% 100 ML IVPB SCH (21:29)
[2021-03-02 22:13] LABS: Anion Gap 11 mmol/L (10-20); BUN (Urea Nitrogen) 9 mg/dL (8.4-25.7); Calc. Creatinine Clearance 0 mL/min (70-130); Calcium 7.6 mg/dL (7.8-10.44); Carbon Dioxide 17 mmol/L (22-29); Chloride 96 mmol/L (98-107); Glucose 97 mg/dL (70-105); Potassium 4.1 mmol/L (3.5-5.1); Sodium 120 mmol/L (136-145)
[2021-03-02] MEDS ORDERED: SODIUM CHLORIDE IV SCH (23:59)
[2021-03-02] MEDS ORDERED: Sodium Chloride 256 MEQ in Sterile Water Injection 936 ML IV SCH (23:59)
[2021-03-03 02:21] VITALS: BMI 256.2
[2021-03-03 03:19] LABS: Hemoglobin 9.1 g/dL (14.0-18.0); Mean Corpuscular HGB CONC 31.8 g/dL (32.0-36.0); Mean Corpuscular Hemoglobin 28.4 pg (27.0-31.0); Mean Corpuscular Volume 89.4 fL (78.0-98.0); Mean Platelet Volume 6.6 fL (7.4-10.4); Platelet Count 229 thou/uL (130-400); RBC Distribution Width 17.9 % (11.5-14.5); Red Blood Cell (RBC) Count 3.19 mill/uL (4.70-6.10); White Blood Cell (WBC) Count 7.8 thou/uL (4.8-10.8)
[2021-03-03 03:36] LABS: Anion Gap 9 mmol/L (10-20); BUN (Urea Nitrogen) 10 mg/dL (8.4-25.7); Calc. Creatinine Clearance 1314 mL/min (70-130); Calcium 7.3 mg/dL (7.8-10.44); Carbon Dioxide 18 mmol/L (22-29); Chloride 97 mmol/L (98-107); Glucose 81 mg/dL (70-105); Potassium 4.3 mmol/L (3.5-5.1); Sodium 120 mmol/L (136-145)
[2021-03-03 03:57] LABS: Band 2 % (5-11); Hypochromia SLIGHT = 6-15 cells (100X) (0-5/hpf); Lymphocytes 31 % (21-51); MDiff Complete? YES; Monocytes 13 % (0-10); Neutrophil 54 % (42-75); Platelet Morphology Comment Appears Adequate
[2021-03-03] MEDS: Piperacillin/Tazobactam 4.5 GM in Sodium Chloride 0.9% 100 ML IVPB SCH ×2 (05:34→14:07)
[2021-03-03] MEDS: Linezolid 600 MG in Premix Bag 1 BAG IVPB SCH (06:27)
[2021-03-03 07:37] LABS: Anion Gap 8 mmol/L (10-20); BUN (Urea Nitrogen) 9 mg/dL (8.4-25.7); Calc. Creatinine Clearance 134 mL/min (70-130); Calcium 7.3 mg/dL (7.8-10.44); Carbon Dioxide 19 mmol/L (22-29); Chloride 96 mmol/L (98-107); Glucose 71 mg/dL (70-105)
[2021-03-03 08:09] LABS: Sodium 119 mmol/L (136-145)
[2021-03-03] MEDS: Sodium Chloride 256 MEQ in Sterile Water Injection 936 ML IV SCH ×2 (09:02→21:52)
[2021-03-03] MEDS: Enoxaparin Sodium 40 MG/0.4 ML SYRINGE SC SCH (09:03)
[2021-03-03 11:34] LABS: SARS-CoV-2 NAA Rapid Test Not Detected (NotDetected)
[2021-03-03] MEDS ORDERED: Ondansetron PF 4 MG/2 ML Vial IVP PRN (12:01)
[2021-03-03 14:37] LABS: Anion Gap 11 mmol/L (10-20); BUN (Urea Nitrogen) 8 mg/dL (8.4-25.7); Calc. Creatinine Clearance 142 mL/min (70-130); Calcium 7.5 mg/dL (7.8-10.44); Carbon Dioxide 14 mmol/L (22-29); Chloride 101 mmol/L (98-107); Glucose 78 mg/dL (70-105); Potassium 5.1 mmol/L (3.5-5.1); Sodium 121 mmol/L (136-145)
[2021-03-03 22:28] LABS: Anion Gap 6 mmol/L (10-20); BUN (Urea Nitrogen) 8 mg/dL (8.4-25.7); Calc. Creatinine Clearance 124 mL/min (70-130); Calcium 7.3 mg/dL (7.8-10.44); Carbon Dioxide 21 mmol/L (22-29); Chloride 101 mmol/L (98-107); Glucose 69 mg/dL (70-105); Potassium 4.1 mmol/L (3.5-5.1); Sodium 124 mmol/L (136-145)
[2021-03-04 05:15] LABS: #Basophils 0.1 thou/uL (0.0-0.2); #Eosinphils 0.2 thou/uL (0.0-0.7); #Lymphocytes 1.6 thou/uL (1.20-3.40); #Monocytes 0.7 thou/uL (0.11-0.59); #Neutrophils 2.8 thou/uL (1.40-6.50); %Basophils 1.5 % (0.0-1.0); %Eosinophils 3.1 % (0.0-10.0); %Monocytes 13.5 % (0.0-10.0); %Neutrophils 52.9 % (42.0-75.0); Hemoglobin 8.8 g/dL (14.0-18.0); Mean Corpuscular HGB CONC 32.3 g/dL (32.0-36.0); Mean Corpuscular Hemoglobin 29.2 pg (27.0-31.0); Mean Corpuscular Volume 90.2 fL (78.0-98.0); Mean Platelet Volume 6.8 fL (7.4-10.4); Platelet Count 203 thou/uL (130-400); RBC Distribution Width 18.1 % (11.5-14.5); Red Blood Cell (RBC) Count 3.02 mill/uL (4.70-6.10); White Blood Cell (WBC) Count 5.3 thou/uL (4.8-10.8)
[2021-03-04 05:28] LABS: Anion Gap 7 mmol/L (10-20); BUN (Urea Nitrogen) 7 mg/dL (8.4-25.7); Calc. Creatinine Clearance 138 mL/min (70-130); Calcium 7.3 mg/dL (7.8-10.44); Carbon Dioxide 18 mmol/L (22-29); Chloride 100 mmol/L (98-107); Potassium 4.1 mmol/L (3.5-5.1); Sodium 121 mmol/L (136-145)
[2021-03-04 05:32] LABS: Glucose 58 mg/dL (70-105)
[2021-03-04] MEDS: Sodium Chloride 256 MEQ in Sterile Water Injection 936 ML IV SCH ×3 (07:52→20:07)
[2021-03-04] MEDS: Enoxaparin Sodium 40 MG/0.4 ML SYRINGE SC SCH (08:53)
[2021-03-05 05:13] LABS: Anion Gap 6 mmol/L (10-20); BUN (Urea Nitrogen) 7 mg/dL (8.4-25.7); Calc. Creatinine Clearance 164 mL/min (70-130); Calcium 7.2 mg/dL (7.8-10.44); Carbon Dioxide 20 mmol/L (22-29); Chloride 106 mmol/L (98-107); Glucose 79 mg/dL (70-105); Potassium 3.9 mmol/L (3.5-5.1); Sodium 128 mmol/L (136-145)
[2021-03-05 06:06] LABS: Band 1 % (5-11); Eosinophils 4 % (0-10); Hemoglobin 7.5 g/dL (14.0-18.0); Lymphocytes 30 % (21-51); MDiff Complete? YES; Mean Corpuscular HGB CONC 31.8 g/dL (32.0-36.0); Mean Corpuscular Hemoglobin 29.2 pg (27.0-31.0); Mean Corpuscular Volume 91.9 fL (78.0-98.0); Monocytes 14 % (0-10); Neutrophil 51 % (42-75); Platelet Count 172 thou/uL (130-400); Platelet Morphology Comment Appears Adequate; RBC Distribution Width 17.9 % (11.5-14.5); Red Blood Cell (RBC) Count 2.57 mill/uL (4.70-6.10); Toxic Granulation SLIGHT
[2021-03-05] MEDS: Enoxaparin Sodium 40 MG/0.4 ML SYRINGE SC SCH (08:56)
[2021-03-05] MEDS: Sodium Chloride 256 MEQ in Sterile Water Injection 936 ML IV SCH ×2 (08:56→20:54)
[2021-03-06 05:09] LABS: Hemoglobin 7.9 g/dL (14.0-18.0); Mean Corpuscular HGB CONC 32.6 g/dL (32.0-36.0); Mean Corpuscular Hemoglobin 29.7 pg (27.0-31.0); Mean Corpuscular Volume 91.3 fL (78.0-98.0); Mean Platelet Volume 6.9 fL (7.4-10.4); Platelet Count 163 thou/uL (130-400); RBC Distribution Width 17.9 % (11.5-14.5); Red Blood Cell (RBC) Count 2.65 mill/uL (4.70-6.10)
[2021-03-06 05:14] LABS: Anion Gap 4 mmol/L (10-20); BUN (Urea Nitrogen) 7 mg/dL (8.4-25.7); Calc. Creatinine Clearance 167 mL/min (70-130); Calcium 7.3 mg/dL (7.8-10.44); Carbon Dioxide 20 mmol/L (22-29); Chloride 110 mmol/L (98-107); Glucose 79 mg/dL (70-105); Potassium 3.9 mmol/L (3.5-5.1); Sodium 130 mmol/L (136-145)
[2021-03-06 06:23] LABS: Band 7 % (5-11); Eosinophils 1 % (0-10); Lymphocytes 21 % (21-51); MDiff Complete? YES; Monocytes 13 % (0-10); Neutrophil 57 % (42-75)
[2021-03-06] MEDS: Enoxaparin Sodium 40 MG/0.4 ML SYRINGE SC SCH (09:31)
[2021-03-06] MEDS: Sodium Chloride 1 GM TAB PO SCH ×2 (17:33→20:51)
[2021-03-06] MEDS: Sodium Chloride 256 MEQ in Sterile Water Injection 936 ML IV SCH (17:33)
[2021-03-06] MEDS: Flecainide 50 MG TAB PO SCH (20:51)
[2021-03-07] MEDS: Sodium Chloride 256 MEQ in Sterile Water Injection 936 ML IV SCH (04:09)
[2021-03-07 05:33] LABS: Anion Gap 9 mmol/L (10-20); BUN (Urea Nitrogen) 7 mg/dL (8.4-25.7); Calc. Creatinine Clearance 187 mL/min (70-130); Calcium 7.1 mg/dL (7.8-10.44); Carbon Dioxide 13 mmol/L (22-29); Chloride 113 mmol/L (98-107); Glucose 60 mg/dL (70-105); Potassium 4.3 mmol/L (3.5-5.1); Sodium 131 mmol/L (136-145)
[2021-03-07] MEDS: Enoxaparin Sodium 40 MG/0.4 ML SYRINGE SC SCH (08:32)
[2021-03-07] MEDS: Sodium Chloride 1 GM TAB PO SCH ×3 (08:37→20:05)
[2021-03-07] MEDS: Spironolactone 25 MG TAB PO SCH (08:39)
[2021-03-07] MEDS: Flecainide 50 MG TAB PO SCH ×2 (08:41→20:05)
[2021-03-07 12:55] LABS: #Eosinphils 0.1 thou/uL (0.0-0.7); #Monocytes 0.4 thou/uL (0.11-0.59); #Neutrophils 1.9 thou/uL (1.40-6.50); %Basophils 1.4 % (0.0-1.0); %Eosinophils 3.3 % (0.0-10.0); %Lymphocytes 28.4 % (21.0-51.0); %Monocytes 12.2 % (0.0-10.0); %Neutrophils 54.8 % (42.0-75.0); Hemoglobin 8.8 g/dL (14.0-18.0); Mean Corpuscular HGB CONC 32.4 g/dL (32.0-36.0); Mean Corpuscular Hemoglobin 29.7 pg (27.0-31.0); Mean Corpuscular Volume 91.7 fL (78.0-98.0); Mean Platelet Volume 6.9 fL (7.4-10.4); Platelet Count 147 thou/uL (130-400); Red Blood Cell (RBC) Count 2.96 mill/uL (4.70-6.10); White Blood Cell (WBC) Count 3.5 thou/uL (4.8-10.8)
[2021-03-07] MEDS: Sodium Bicarbonate Tab 325 MG TAB PO SCH ×2 (16:45→20:05)
[2021-03-08] MEDS: Sodium Chloride 256 MEQ in Sterile Water Injection 936 ML IV SCH (03:35)
[2021-03-08 05:19] LABS: #Basophils 0.1 thou/uL (0.0-0.2); #Eosinphils 0.1 thou/uL (0.0-0.7); #Lymphocytes 1.4 thou/uL (1.20-3.40); #Monocytes 0.6 thou/uL (0.11-0.59); #Neutrophils 1.9 thou/uL (1.40-6.50); %Basophils 1.8 % (0.0-1.0); %Eosinophils 2.9 % (0.0-10.0); %Lymphocytes 34.9 % (21.0-51.0); %Monocytes 13.8 % (0.0-10.0); %Neutrophils 46.6 % (42.0-75.0); Hemoglobin 8.6 g/dL (14.0-18.0); Mean Corpuscular Hemoglobin 30.2 pg (27.0-31.0); Mean Corpuscular Volume 91.5 fL (78.0-98.0); Platelet Count 140 thou/uL (130-400); Red Blood Cell (RBC) Count 2.85 mill/uL (4.70-6.10)
[2021-03-08 05:34] LABS: Anion Gap 6 mmol/L (10-20); BUN (Urea Nitrogen) 6 mg/dL (8.4-25.7); Calc. Creatinine Clearance 173 mL/min (70-130); Calcium 7.5 mg/dL (7.8-10.44); Carbon Dioxide 20 mmol/L (22-29); Chloride 109 mmol/L (98-107); Glucose 67 mg/dL (70-105); Potassium 3.6 mmol/L (3.5-5.1); Sodium 131 mmol/L (136-145)
[2021-03-08] MEDS: Sodium Chloride 1 GM TAB PO SCH ×2 (08:29→15:53)
[2021-03-08] MEDS: Sodium Bicarbonate Tab 325 MG TAB PO SCH ×2 (08:30→15:53)
[2021-03-08] MEDS: Spironolactone 25 MG TAB PO SCH (08:30)
[2021-03-08] MEDS: Flecainide 50 MG TAB PO SCH (08:31)
[2021-03-08] MEDS: Enoxaparin Sodium 40 MG/0.4 ML SYRINGE SC SCH (08:31)
[2021-03-08 16:35] VITALS: BP 120/53; TEMP 98
== END 2021-03-08 19:00 | disposition home or self-care (01) | DRG 644 ==
LOC: ERS 13:38 → 2NO 18:58
PROVIDERS: ADMIT Internal Medicine; ATTEND Internal Medicine
DX: E22.2 Syndrome of inappropriate secretion of antidiuretic hormone (principal); G91.2 (Idiopathic) normal pressure hydrocephalus; K76.6 Portal hypertension; D61.818 Other pancytopenia; E87.2 Acidosis; I95.9 Hypotension, unspecified; I48.0 Paroxysmal atrial fibrillation; K21.9 Gastro-esophageal reflux disease without esophagitis; F32.9 Major depressive disorder, single episode, unspecified; J44.9 Chronic obstructive pulmonary disease, unspecified; G31.9 Degenerative disease of nervous system, unspecified; I10 Essential (primary) hypertension; E86.0 Dehydration; B18.2 Chronic viral hepatitis C; D64.9 Anemia, unspecified; R00.1 Bradycardia, unspecified; Z20.822 Contact with and (suspected) exposure to COVID-19; K70.30 Alcoholic cirrhosis of liver without ascites; Z88.8 Allergy status to other drugs, medicaments and biological substances; Z79.899 Other long term (current) drug therapy; Z90.49 Acquired absence of other specified parts of digestive tract; Z87.891 Personal history of nicotine dependence
CPT/HCPCS: 36415; 36416; 70450; 80048; 82607; 82746; 85025; 93005; A4217; J1650; J2020; J2405; J2543; J3490; J7050; U0002; U0005

== ENCOUNTER 2021-04-11 15:13 | Inpatient (IN) | payer MEDICAID ==
[~2021-04-11 15:13] MED LIST: Heparin 1,000 UNITS/ML VIAL ONE; Iopamidol 370 76% 100 ML VIAL ONE
[2021-04-11] MEDS ORDERED: Sodium Chloride 0.9% 100 ML ONE (16:30)
[2021-04-11] MEDS ORDERED: cefTRIAXone\\ROCEPHIN 1 GM VIAL ONE (16:30)
[2021-04-11] MEDS ORDERED: Pantoprazole 40 MG VIAL ONE (16:30)
[2021-04-11 16:45] LABS: #Eosinphils 0.1 thou/uL (0.0-0.7); #Lymphocytes 1.1 thou/uL (1.20-3.40); #Monocytes 0.1 thou/uL (0.11-0.59); #Neutrophils 3.9 thou/uL (1.40-6.50); %Basophils 0.5 % (0.0-1.0); %Eosinophils 1.9 % (0.0-10.0); %Lymphocytes 21.2 % (21.0-51.0); %Monocytes 2.6 % (0.0-10.0); %Neutrophils 73.8 % (42.0-75.0); Hemoglobin 7.2 g/dL (14.0-18.0); Mean Corpuscular HGB CONC 32.7 g/dL (32.0-36.0); Mean Corpuscular Hemoglobin 29.5 pg (27.0-31.0); Mean Corpuscular Volume 90.3 fL (78.0-98.0); Mean Platelet Volume 11.1 fL (7.4-10.4); Platelet Count 39 thou/uL (130-400); RBC Distribution Width 17.5 % (11.5-14.5); Red Blood Cell (RBC) Count 2.45 mill/uL (4.70-6.10); White Blood Cell (WBC) Count 5.3 thou/uL (4.8-10.8)
[2021-04-11 16:56] LABS: Anisocytosis SLIGHT = 6-15 cells (100X) (0-5/hpf); Burr Cells SLIGHT = 2-5 cells (100X) (0-1/hpf); MDiff Complete? YES; Platelet Morphology Comment Appears Decreased; Polychromasia SLIGHT = 2-3 cells (100X) (0-2/hpf)
[2021-04-11] MEDS ORDERED: Ondansetron PF 4 MG/2 ML Vial IVP PRN (19:02)
[2021-04-11 19:28] LABS: Bacteria/HPF None Seen HPF (None Seen); Bilirubin 1+ (Negative); Blood, Urine 1+ (Negative); Clarity Turbid (Clear); Glucose, Urine (Dipstick) Normal (Negative); Ketone, Urine Negative (Negative); Leukocyte Negative Leu/uL (Negative); Mucous/LPF Rare LPF (<2+); Nitrite Negative (Negative); Protein, Urine (Dipstick) Negative (Neg-Trace); Renal Epithelial 0-3 HPF (None Seen); Specific Gravity, Urine 1.018 (1.002-1.036); Squamous Epithelial 0-3 HPF (0-3); Urobilinogen 6 mg/dL (Less than 2)
[2021-04-11 22:28] LABS: Hemoglobin 6.7 g/dL (14.0-18.0)
[2021-04-12 02:56] LABS: #Eosinphils 0.1 thou/uL (0.0-0.7); #Lymphocytes 1.3 thou/uL (1.20-3.40); #Monocytes 0.1 thou/uL (0.11-0.59); %Eosinophils 1.6 % (0.0-10.0); %Lymphocytes 28.6 % (21.0-51.0); %Monocytes 3.1 % (0.0-10.0); %Neutrophils 65.7 % (42.0-75.0); Hemoglobin 6.6 g/dL (14.0-18.0); Mean Corpuscular HGB CONC 33.1 g/dL (32.0-36.0); Mean Corpuscular Hemoglobin 29.4 pg (27.0-31.0); Mean Corpuscular Volume 88.7 fL (78.0-98.0); Platelet Count 33 thou/uL (130-400); RBC Distribution Width 17.7 % (11.5-14.5); Red Blood Cell (RBC) Count 2.24 mill/uL (4.70-6.10); White Blood Cell (WBC) Count 4.5 thou/uL (4.8-10.8)
[2021-04-12 03:06] LABS: INR-International Normal Ratio 2.9; Prothrombin Time 30.9 sec (12.0-14.7)
[2021-04-12 03:07] LABS: Lactic Acid 4.5 mmol/L (0.5-2.2)
[2021-04-12 03:40] LABS: Anion Gap 15 mmol/L (10-20); BUN (Urea Nitrogen) 16 mg/dL (8.4-25.7); Calc. Creatinine Clearance 117 mL/min (70-130); Calcium 8.9 mg/dL (7.8-10.44); Carbon Dioxide 18 mmol/L (22-29); Chloride 108 mmol/L (98-107); Cholesterol 77 mg/dl (< 200 Desired); Glucose 41 mg/dL (70-105); HDL Cholesterol 11 mg/dL (>60 Neg Risk); LDL Cholesterol, Calculated 57 mg/dL; Potassium 4.5 mmol/L (3.5-5.1); Sodium 136 mmol/L (136-145); Triglycerides 47 mg/dL (Less than 150)
[2021-04-12] MEDS ORDERED: Dextrose 50% Abboject 50 ML SYRINGE ONE (03:42)
[2021-04-12] MEDS ORDERED: Dextrose 5% in Water 1,000 ML IV PRN (03:43)
[2021-04-12] MEDS: Pantoprazole 80 MG, Admixture Fee 1 EACH in Sodium Chloride 0.9% 100 ML IVPB SCH ×2 (03:59→15:36)
[2021-04-12] MEDS: Dextrose 50% Abboject 50 ML SYRINGE SLOW IVP PRN ×2 (05:19→11:42)
[2021-04-12] MEDS ORDERED: Furosemide 40 MG/4 ML VIAL SLOW IVP SCH (08:30)
[2021-04-12] MEDS ORDERED: Sodium Chloride 0.9% 1,000 ML IV SCH (08:30)
[2021-04-12 10:39] LABS: Hemoglobin 7.4 g/dL (14.0-18.0)
[2021-04-12 10:57] LABS: Lactic Acid 6.2 mmol/L (0.5-2.2)
[2021-04-12 11:36] LABS: Glucose 45 mg/dL (70-105)
[2021-04-12] MEDS ORDERED: Dextrose 50% Abboject 50 ML SYRINGE SLOW IVP PRN (11:46)
[2021-04-12 12:24] LABS: Hemoglobin 7.2 g/dL (14.0-18.0)
[2021-04-12 12:40] LABS: Glucose 72 mg/dL (70-105)
[2021-04-12 12:46] LABS: ALT (SGPT) 51 U/L (8-55); AST (SGOT) 97 U/L (5-34); Albumin 1.9 g/dL (3.5-5.0); Alkaline Phosphatase 94 U/L (40-110); Bilirubin, Direct 4.3 mg/dL (0.1-0.3); Bilirubin, Total 9.5 mg/dL (0.2-1.2)
[2021-04-12 16:22] LABS: Actual Bicarbonate (HCO3a) 21.3 mEq/L (22-28); Base Excess (BEa) -2.1 mEq/L (-2.0 to +3.0); CO2 Tension 30.1 mmHg (35.0-45.0); Calcium, Ionized (arterial) 1.25 mmol/L (1.12-1.30); Carboxyhemoglobin (COHb) 1.9 gm% (0.0-3.0); Hemoglobin (Hb) 6.9 g/dL (14.0-18.0); O2 Tension (PaO2), arterial 76.9 mmHg (80.0-100.0); Potassium - ABG Lab 3.91 mmol/L (3.70-5.30); pH, Arterial 7.47 (7.35-7.45)
[2021-04-12 16:25] LABS: ALV-art Gradient 35.205 mmHg (0-20); Puncture Site RRA
[2021-04-12 17:13] LABS: Platelet Count 27 thou/uL (130-400)
[2021-04-12 17:21] LABS: INR-International Normal Ratio 3.1; PTT 44.5 sec (22.9-36.1); Prothrombin Time 32.3 sec (12.0-14.7)
[2021-04-12 17:22] LABS: D-Dimer Test 2.29 *mcg/mL (0.27-0.43)
[2021-04-12] MEDS: Phytonadione 10 MG in Sodium Chloride 0.9% 50 ML IVPB SCH ×2 (17:28→19:50)
[2021-04-12 17:30] LABS: Fibrinogen 64 mg/dL (253-463)
[2021-04-12 17:39] LABS: FSP-Qualitative ABNORMAL (Normal); FSP-Semiquantitative >=40 & <80 mcg/mL (Less than 5)
[2021-04-12 17:46] LABS: Glucose 73 mg/dL (70-105)
[2021-04-12] MEDS ORDERED: Phytonadione 10 MG/ML AMP SC SCH (18:30)
[2021-04-12] MEDS: Dextrose 5 %-0.45 % NaCl 1,000 ML IV SCH ×2 (19:50→23:40)
[2021-04-12] MEDS: cefTRIAXone\\ROCEPHIN 1 GM in Sodium Chloride 0.9% 100 ML IVPB SCH (19:50)
[2021-04-13 00:11] LABS: Glucose 59 mg/dL (70-105)
[2021-04-13 01:21] LABS: #Eosinphils 0.1 thou/uL (0.0-0.7); #Lymphocytes 1.3 thou/uL (1.20-3.40); #Monocytes 0.2 thou/uL (0.11-0.59); #Neutrophils 2.6 thou/uL (1.40-6.50); %Basophils 0.5 % (0.0-1.0); %Eosinophils 2.4 % (0.0-10.0); %Lymphocytes 30.2 % (21.0-51.0); %Monocytes 5.6 % (0.0-10.0); %Neutrophils 61.3 % (42.0-75.0); Hemoglobin 8.2 g/dL (14.0-18.0); Mean Corpuscular HGB CONC 34.1 g/dL (32.0-36.0); Mean Corpuscular Hemoglobin 30.8 pg (27.0-31.0); Mean Corpuscular Volume 90.3 fL (78.0-98.0); Mean Platelet Volume 9.9 fL (7.4-10.4); Platelet Count 49 thou/uL (130-400); RBC Distribution Width 16.4 % (11.5-14.5); Red Blood Cell (RBC) Count 2.67 mill/uL (4.70-6.10); White Blood Cell (WBC) Count 4.2 thou/uL (4.8-10.8)
[2021-04-13] MEDS: Dextrose 50% Abboject 50 ML SYRINGE SLOW IVP PRN ×2 (01:30→06:56)
[2021-04-13 01:37] LABS: Anion Gap 14 mmol/L (10-20); BUN (Urea Nitrogen) 15 mg/dL (8.4-25.7); Calc. Creatinine Clearance 117 mL/min (70-130); Carbon Dioxide 18 mmol/L (22-29); Chloride 110 mmol/L (98-107); Glucose 64 mg/dL (70-105); Potassium 3.7 mmol/L (3.5-5.1); Sodium 138 mmol/L (136-145)
[2021-04-13] MEDS ORDERED: Furosemide 40 MG/4 ML VIAL SLOW IVP SCH (02:45)
[2021-04-13] MEDS: Pantoprazole 80 MG, Admixture Fee 1 EACH in Sodium Chloride 0.9% 100 ML IVPB SCH (03:00)
[2021-04-13 03:48] LABS: ALT (SGPT) 47 U/L (8-55); AST (SGOT) 98 U/L (5-34); Alkaline Phosphatase 91 U/L (40-110); Anion Gap 12 mmol/L (10-20); BUN (Urea Nitrogen) 16 mg/dL (8.4-25.7); Bilirubin, Total 10.6 mg/dL (0.2-1.2); Calc. Creatinine Clearance 110 mL/min (70-130); Calcium 8.9 mg/dL (7.8-10.44); Carbon Dioxide 20 mmol/L (22-29); Chloride 112 mmol/L (98-107); Globulin 3.9 g/dL (2.4-3.5); Glucose 64 mg/dL (70-105); Lactic Acid 3.3 mmol/L (0.5-2.2); Potassium 3.6 mmol/L (3.5-5.1); Protein, Total 5.9 g/dL (6.0-8.3); Sodium 140 mmol/L (136-145)
[2021-04-13 03:51] LABS: #Eosinphils 0.1 thou/uL (0.0-0.7); #Monocytes 0.2 thou/uL (0.11-0.59); #Neutrophils 2.1 thou/uL (1.40-6.50); %Basophils 0.4 % (0.0-1.0); %Lymphocytes 29.4 % (21.0-51.0); %Monocytes 5.6 % (0.0-10.0); %Neutrophils 61.6 % (42.0-75.0); Hemoglobin 7.2 g/dL (14.0-18.0); Mean Corpuscular HGB CONC 33.9 g/dL (32.0-36.0); Mean Corpuscular Hemoglobin 30.3 pg (27.0-31.0); Mean Corpuscular Volume 89.3 fL (78.0-98.0); Mean Platelet Volume 9.5 fL (7.4-10.4); Platelet Count 45 thou/uL (130-400); RBC Distribution Width 16.3 % (11.5-14.5); Red Blood Cell (RBC) Count 2.37 mill/uL (4.70-6.10); White Blood Cell (WBC) Count 3.4 thou/uL (4.8-10.8)
[2021-04-13 03:52] LABS: INR-International Normal Ratio 2.5; PTT 42.5 sec (22.9-36.1); Prothrombin Time 27.4 sec (12.0-14.7)
[2021-04-13] MEDS: Dextrose 10% in Water 1,000 ML IV SCH (06:25)
[2021-04-13 06:47] LABS: Glucose 57 mg/dL (70-105)
[2021-04-13] MEDS: cefTRIAXone\\ROCEPHIN 1 GM in Sodium Chloride 0.9% 100 ML IVPB SCH ×2 (17:52→18:31)
[2021-04-13] MEDS ORDERED: Piperacillin/Tazobactam 3.375 GM in Sodium Chloride 0.9% 100 ML IVPB SCH ×2 (18:00→18:15)
[2021-04-13] MEDS: Piperacillin/Tazobactam 3.375 GM in Sodium Chloride 0.9% 100 ML IVPB SCH (18:32)
[2021-04-13] MEDS ORDERED: Lactulose 10 GM/15 ML Oral Solution PR SCH (18:45)
[2021-04-13 18:57] LABS: Hemoglobin 7.8 g/dL (14.0-18.0); Platelet Count 39 thou/uL (130-400)
[2021-04-14] MEDS: Dextrose 10% in Water 1,000 ML IV SCH (03:05)
[2021-04-14 03:27] LABS: #Eosinphils 0.2 thou/uL (0.0-0.7); #Lymphocytes 1.1 thou/uL (1.20-3.40); #Monocytes 0.3 thou/uL (0.11-0.59); #Neutrophils 1.6 thou/uL (1.40-6.50); %Basophils 0.7 % (0.0-1.0); %Eosinophils 5.1 % (0.0-10.0); %Lymphocytes 34.8 % (21.0-51.0); %Neutrophils 51.4 % (42.0-75.0); Hemoglobin 7.9 g/dL (14.0-18.0); Mean Corpuscular HGB CONC 33.5 g/dL (32.0-36.0); Mean Corpuscular Hemoglobin 29.9 pg (27.0-31.0); Mean Corpuscular Volume 89.1 fL (78.0-98.0); Mean Platelet Volume 11.1 fL (7.4-10.4); Platelet Count 31 thou/uL (130-400); RBC Distribution Width 16.8 % (11.5-14.5); Red Blood Cell (RBC) Count 2.66 mill/uL (4.70-6.10); White Blood Cell (WBC) Count 3.1 thou/uL (4.8-10.8)
[2021-04-14 03:43] LABS: ALT (SGPT) 47 U/L (8-55); AST (SGOT) 87 U/L (5-34); Albumin 1.8 g/dL (3.5-5.0); Alkaline Phosphatase 90 U/L (40-110); Anion Gap 9 mmol/L (10-20); BUN (Urea Nitrogen) 14 mg/dL (8.4-25.7); Bilirubin, Total 11.1 mg/dL (0.2-1.2); Calc. Creatinine Clearance 110 mL/min (70-130); Calcium 8.8 mg/dL (7.8-10.44); Carbon Dioxide 24 mmol/L (22-29); Chloride 110 mmol/L (98-107); Glucose 114 mg/dL (70-105); Potassium 3.3 mmol/L (3.5-5.1); Protein, Total 5.8 g/dL (6.0-8.3); Sodium 140 mmol/L (136-145)
[2021-04-14] MEDS: Piperacillin/Tazobactam 3.375 GM in Sodium Chloride 0.9% 100 ML IVPB SCH ×3 (06:51→22:51)
[2021-04-14] MEDS ORDERED: hydrALAZINE 20 MG/ML VIAL SLOW IVP PRN (08:34)
[2021-04-14] MEDS: Aluminum & Magnesium Hydroxide 60 ML, diphenhydrAMINE 150 MG, Lidocaine 2% Viscous Solu... SSW PRN ×2 (13:00→15:11)
[2021-04-14 14:18] VITALS: BMI 21.4
[2021-04-14] MEDS ORDERED: ALUMINUM SSW PRN ×2 (17:00→17:15)
[2021-04-14] MEDS ORDERED: VISCOUS SSW PRN ×2 (17:00→17:15)
[2021-04-14] MEDS ORDERED: LIDOCAINE SSW PRN ×2 (17:00→17:15)
[2021-04-14] MEDS ORDERED: [UNRECOGNIZED DRUG - OTHER] SSW PRN (17:00)
[2021-04-14] MEDS ORDERED: MAGNESIUM HYDROXIDE SSW PRN ×2 (17:00→17:15)
[2021-04-14] MEDS ORDERED: [UNRECOGNIZED DRUG - OTHER] SSW PRN (17:15)
[2021-04-14] MEDS: Pantoprazole 40 MG VIAL IVP SCH (21:19)
[2021-04-15] MEDS: Dextrose 10% in Water 1,000 ML IV SCH (00:10)
[2021-04-15 06:21] LABS: #Eosinphils 0.1 thou/uL (0.0-0.7); #Monocytes 0.4 thou/uL (0.11-0.59); #Neutrophils 1.5 thou/uL (1.40-6.50); %Basophils 0.4 % (0.0-1.0); %Eosinophils 3.7 % (0.0-10.0); %Lymphocytes 32.4 % (21.0-51.0); %Monocytes 14.7 % (0.0-10.0); %Neutrophils 48.8 % (42.0-75.0); Hemoglobin 7.1 g/dL (14.0-18.0); Mean Corpuscular HGB CONC 33.2 g/dL (32.0-36.0); Mean Corpuscular Hemoglobin 29.9 pg (27.0-31.0); Mean Corpuscular Volume 89.9 fL (78.0-98.0); Mean Platelet Volume 10.8 fL (7.4-10.4); Platelet Count 21 thou/uL (130-400); RBC Distribution Width 16.8 % (11.5-14.5); Red Blood Cell (RBC) Count 2.37 mill/uL (4.70-6.10)
[2021-04-15 06:43] LABS: ALT (SGPT) 40 U/L (8-55); AST (SGOT) 68 U/L (5-34); Albumin 1.7 g/dL (3.5-5.0); Alkaline Phosphatase 81 U/L (40-110); Anion Gap 9 mmol/L (10-20); BUN (Urea Nitrogen) 12 mg/dL (8.4-25.7); Bilirubin, Total 7.9 mg/dL (0.2-1.2); Calc. Creatinine Clearance 125 mL/min (70-130); Calcium 8.1 mg/dL (7.8-10.44); Carbon Dioxide 23 mmol/L (22-29); Chloride 107 mmol/L (98-107); Globulin 3.5 g/dL (2.4-3.5); Glucose 98 mg/dL (70-105); Potassium 3.2 mmol/L (3.5-5.1); Protein, Total 5.2 g/dL (6.0-8.3); Sodium 136 mmol/L (136-145)
[2021-04-15] MEDS: Piperacillin/Tazobactam 3.375 GM in Sodium Chloride 0.9% 100 ML IVPB SCH ×3 (06:46→22:18)
[2021-04-15] MEDS ORDERED: Sodium Chloride 0.65% Nasal 44 ML BOT EA NARE PRN (07:30)
[2021-04-15] MEDS ORDERED: Cepastat Lozenges 1 LOZ PO PRN (07:30)
[2021-04-15] MEDS ORDERED: Senokot S 8.6-50 MG TAB PO PRN (07:30)
[2021-04-15] MEDS ORDERED: Calcium Carbonate 500 MG ChewTAB PO PRN (07:30)
[2021-04-15] MEDS ORDERED: Ondansetron ODT 4 MG TAB PO PRN (07:30)
[2021-04-15] MEDS ORDERED: traMADol HCl 50 MG TAB PO PRN (07:32)
[2021-04-15] MEDS ORDERED: Potassium Chloride 20 MEQ TAB PO SCH (07:45)
[2021-04-15] MEDS: Pantoprazole 40 MG VIAL IVP SCH ×2 (10:32→22:17)
[2021-04-16 05:13] LABS: Hemoglobin 8.2 g/dL (14.0-18.0); Mean Corpuscular HGB CONC 33.8 g/dL (32.0-36.0); Mean Corpuscular Hemoglobin 30.6 pg (27.0-31.0); Mean Corpuscular Volume 90.8 fL (78.0-98.0); Mean Platelet Volume 9.6 fL (7.4-10.4); Platelet Count 49 thou/uL (130-400); RBC Distribution Width 16.3 % (11.5-14.5); Red Blood Cell (RBC) Count 2.67 mill/uL (4.70-6.10); White Blood Cell (WBC) Count 4.3 thou/uL (4.8-10.8)
[2021-04-16 05:19] LABS: INR-International Normal Ratio 2.4; Prothrombin Time 26.5 sec (12.0-14.7)
[2021-04-16 05:26] LABS: ALT (SGPT) 41 U/L (8-55); AST (SGOT) 61 U/L (5-34); Albumin 1.8 g/dL (3.5-5.0); Alkaline Phosphatase 86 U/L (40-110); Anion Gap 10 mmol/L (10-20); BUN (Urea Nitrogen) 10 mg/dL (8.4-25.7); Bilirubin, Total 8.6 mg/dL (0.2-1.2); Calc. Creatinine Clearance 119 mL/min (70-130); Calcium 8.3 mg/dL (7.8-10.44); Carbon Dioxide 21 mmol/L (22-29); Chloride 106 mmol/L (98-107); Globulin 3.7 g/dL (2.4-3.5); Glucose 119 mg/dL (70-105); Magnesium 1.5 mg/dL (1.6-2.6); Potassium 3.2 mmol/L (3.5-5.1); Protein, Total 5.5 g/dL (6.0-8.3); Sodium 134 mmol/L (136-145)
[2021-04-16 05:28] LABS: Phosphorus 1.3 mg/dL (2.3-4.7)
[2021-04-16] MEDS: Piperacillin/Tazobactam 3.375 GM in Sodium Chloride 0.9% 100 ML IVPB SCH ×3 (06:10→22:54)
[2021-04-16 06:13] LABS: Band 22 % (5-11); Eosinophils 3 % (0-10); Lymphocytes 31 % (21-51); MDiff Complete? YES; Myelocyte 1 % (0-0); Neutrophil 43 % (42-75); Platelet Morphology Comment Appears Decreased
[2021-04-16] MEDS ORDERED: Potassium Chloride 20 MEQ TAB PO SCH (06:30)
[2021-04-16] MEDS ORDERED: Magnesium 2 GM/50 ML 2 GM in Premix Bag 1 BAG IVPB SCH (06:30)
[2021-04-16] MEDS ORDERED: Electrolyte Replacement Protocol FS PRN (06:30)
[2021-04-16] MEDS: PHOS-NAK 1 PKT PACK PO SCH ×4 (06:55→18:19)
[2021-04-16] MEDS ORDERED: Magnesium Sulfate 3 GM in Sodium Chloride 0.9% 100 ML IVPB SCH (08:30)
[2021-04-16] MEDS ORDERED: Potassium Phosphate 30 MMOL in Sodium Chloride 0.9% 500 ML IVPB SCH (08:30)
[2021-04-16] MEDS: Pantoprazole 40 MG VIAL IVP SCH ×2 (08:55→20:55)
[2021-04-16] MEDS: Dextrose 10% in Water 1,000 ML IV SCH ×2 (08:55→16:36)
[2021-04-16 15:54] VITALS: BP 114/72
[2021-04-17] MEDS: Piperacillin/Tazobactam 3.375 GM in Sodium Chloride 0.9% 100 ML IVPB SCH ×2 (05:47→16:35)
[2021-04-17] MEDS: Dextrose 10% in Water 1,000 ML IV SCH (09:32)
[2021-04-17] MEDS: Pantoprazole 40 MG VIAL IVP SCH (09:32)
[2021-04-17 15:26] VITALS: TEMP 98.5
== END 2021-04-17 18:37 | disposition hospice, inpatient (51) | DRG 441 ==
LOC: ERS 15:13 → ONC 17:47 → IMCU/EMU 04-12 20:54
PROVIDERS: ADMIT Family Medicine; ATTEND Internal Medicine
PROC: 02HV33Z Insertion of Infusion Device into Superior Vena Cava, Percutaneous Approach (ICD-10-PCS; principal; 2021-04-12)
PROC: B548ZZA Ultrasonography of Superior Vena Cava, Guidance (ICD-10-PCS; 2021-04-12)
PROC: 4A10X4Z Monitoring of Central Nervous Electrical Activity, External Approach (ICD-10-PCS; 2021-04-12)
PROC: 30233M1 Transfusion of Nonautologous Plasma Cryoprecipitate into Peripheral Vein, Percutaneous Approach (ICD-10-PCS; 2021-04-12)
PROC: 30233N1 Transfusion of Nonautologous Red Blood Cells into Peripheral Vein, Percutaneous Approach (ICD-10-PCS; 2021-04-12)
PROC: 30233R1 Transfusion of Nonautologous Platelets into Peripheral Vein, Percutaneous Approach (ICD-10-PCS; 2021-04-12)
DX: K72.90 Hepatic failure, unspecified without coma (principal); D65 Disseminated intravascular coagulation [defibrination syndrome]; G93.41 Metabolic encephalopathy; D62 Acute posthemorrhagic anemia; D68.4 Acquired coagulation factor deficiency; D61.818 Other pancytopenia; K70.31 Alcoholic cirrhosis of liver with ascites; I10 Essential (primary) hypertension; J44.9 Chronic obstructive pulmonary disease, unspecified; I48.0 Paroxysmal atrial fibrillation; Z66 Do not resuscitate; T83.011A Breakdown (mechanical) of indwelling urethral catheter, initial encounter; Y83.8 Other surgical procedures as the cause of abnormal reaction of the patient, or of later complication, without mention of misadventure at the time of the procedure; E16.2 Hypoglycemia, unspecified; Z51.5 Encounter for palliative care; K71.3 Toxic liver disease with chronic persistent hepatitis; Z79.899 Other long term (current) drug therapy; Z87.891 Personal history of nicotine dependence; Z90.49 Acquired absence of other specified parts of digestive tract
CPT/HCPCS: 36415; 36416; 36430; 36569; 36600; 51701; 70450; 71045; 74177; 80048; 80053; 80061; 80076; 81003; 81015; 82140; 82274; 82805; 82947; 83605; 83735; 83880; 84100; 85025; 85049; 85300; 85362; 85379; 85384; 85610; 85730; 86850; 86900; 86901; 87086; 95816; 95819; 95957; 96365; 96375; 96376; C9113; J0696; J1644; J1940; J2543; J3430; J3475; J3490; P9012; P9016; P9035; Q0163; Q9967